=== PATIENT | female | born 1935 | race Caucasian/White ===

== ENCOUNTER 2018-01-06 13:28 | Inpatient (IN) ==
--- NOTE | 2018-01-06 13:39 | Emergency Department Note ---
Disposition Clinical Impression: Pyelonephritis Disposition: Admitted As Inpatient Condition: Fair Referrals: David Grissom Jr, MD [Primary Care Provider] - Forms: ED Satisfaction Letter, Work/School Release Time of Disposition: 15:34 Abdominal Pain HPI - General Chief Complaint: ED Abdominal Pain Stated Complaint: 'llq abdominal pain" Time Seen by Provider: 01/06/18 13:30 Source: patient, EMS Mode of arrival: EMS Limitations: no limitations Nursing Notes Reviewed: Yes Vital Signs Reviewed: Yes - History of Present Illness HPI Narrative: 82-year-old has a history of previous kidney stones says she has had some pain that may be similar to that although she recently started on a stool softener and did not know if it may be related to that. She has got diffuse abdominal discomfort. Pt Subjective Complaint: abdominal pain Onset (ago): Just [employer] Consistency: intermittent Location: diffuse Pain Severity: moderate Quality: cramping, aching Radiation: none Migration to: no migration Improves with: nothing Worsens with: nothing Context: history of similar episodes Associated symptoms: Reports: nausea. Denies: vomiting, diarrhea, fever Treatments prior to arrival: NSAIDs - Related Data Home Medications Medication Instructions Recorded Confirmed Cyclobenzaprine [Flexeril] 10 mg PO HS PRN 04/01/17 01/06/18 raNITIdine HCl [Zantac] 150 mg PO BID 04/01/17 01/06/18 Amitriptyline [Elavil] 50 mg PO BID 04/08/17 01/06/18 Previous Rx's Medication Instructions Recorded amLODIPine [Norvasc] 5 mg PO DAILY #30 tab 04/10/17 Allergies Allergy/AdvReac Type Severity Reaction Status Date / Time No Known Allergies Allergy Verified 09/08/17 20:38 Constitutional: Denies: fever, chills, weakness, weight change Eyes: Denies: eye pain, eye discharge, vision change ENT ED: Denies: ear pain, throat pain, dental pain, hearing loss, epistaxis, congestion, dysphagia Cardiovascular: Denies: chest pain, palpitations, dyspnea on exertion, edema, syncope Respiratory: Denies: cough, dyspnea, wheezes, hemoptysis, stridor Gastrointestinal: Reports: abdominal pain, nausea. Denies: vomiting, diarrhea, constipation, hematemesis, melena, hematochezia Genitourinary: Denies: dysuria, frequency, hematuria, discharge Musculoskeletal: Denies: back pain, neck pain, arthralgia, myalgia Integumentary: Denies: rash, abrasion, lesions Neurological: Denies: headache, weakness, numbness, paresthesias, confusion, abnormal gait, vertigo Psychiatric: Denies: anxiety, depression, suicidal thoughts, homicidal thoughts , auditory hallucinations, visual hallucinations Endocrine: Denies: fatigue Hematological/Lymphatic: Denies: easy bleeding, easy bruising Allergic/Immunologic: Denies: facial swelling, urticaria Abdominal Pain PMH - Past Medical History Medical history: Reports: GERD, hypertension, thyroid disease Female Surgical History: Reports: other Psychiatric history: Reports: no psych history - Social History Smoking status: Never smoker Alcohol use: Reports: none Drug use: Reports: none, other Physical Exam - General Limitations: no limitations General appearance: alert, in no apparent distress - Head Head exam: atraumatic, normocephalic, normal inspection - Eye Eye exam: Present: normal appearance, PERRL, EOMI - ENT ENT exam: normal exam, normal oropharynx, mucous membranes moist - Neck Neck exam: Present: normal inspection, full ROM, trachea midline - Chest Chest inspection: Present: normal inspection, symmetric chest wall rise - Respiratory Respiratory exam: Present: normal lung sounds bilaterally - Cardiovascular Cardiovascular exam: Present: regular rate, normal rhythm, normal heart sounds - Abdominal Exam Abdominal exam: Present: soft, tenderness. Absent: distention, guarding, rebound, rigidity Abdominal tenderness: Present: diffuse - Rectal Exam Rectal exam: Present: deferred - Extremities Exam Extremities exam: Present: normal inspection, full ROM. Absent: tenderness, pedal edema - Expanded Lower Extremity Exam Neurovascular/Tendon exam: Absent: motor deficit, sensory deficit, tendon deficit Gait: observed and normal - Back Exam Back exam: Present: normal inspection, full ROM. Absent: tenderness - Neurological Exam Neurological exam: Present: alert, oriented X3 - Psychiatric Psychiatric exam: Present: normal affect, normal mood - Skin Skin exam: Present: warm, dry, intact, normal color Course - Reevaluation(s) Reevaluation #1: 82-year-old bilateral flank pain thought maybe a kidney stone however the CT was negative for acute stone. Urine does appear to be infected with a white count of 18,000 patient will be admitted for IV antibiotics. Time: 16:06 - Consultations Consultation #1: Discussed with Time: 16:06 Vital Signs Temperature 99.7 F H 01/06/18 13:32 Pulse Rate 101 01/06/18 13:32 Respiratory Rate 18 01/06/18 13:32 Blood Pressure 130/87 01/06/18 13:32 O2 Sat by Pulse Oximetry 100 01/06/18 13:32 Temperature 99.7 F H 01/06/18 13:32 Pulse Rate 100 01/06/18 15:30 Respiratory Rate 18 01/06/18 15:30 Blood Pressure 142/77 01/06/18 15:30 O2 Sat by Pulse Oximetry 98 01/06/18 15:30 Oxygen Delivery Oxygen Delivery Room Air Abdominal Pain - Lab Data Lab results reviewed: Yes I reviewed the patient's lab results. Result diagrams: 01/06/18 13:36 01/06/18 14:45 Lab Results 01/06/18 01/06/18 01/06/18 Range/Units 13:36 13:36 13:36 WBC 18.5 H (4.3-11.1) K/mcL RBC 4.74 (3.82-4.97) M/mcL Hgb 15.0 (11.5-15.4) g/dL Hct 43.8 (35.3-44.9) % MCV 92.4 (83.0-100.0) fL MCH 31.6 (28.0-33.3) pg MCHC 34.2 (31.6-35.5) g/dL RDW 13.0 (11.5-14.5) % Plt Count 151 (140-400) K/mcL MPV 10.8 (9.4-12.4) fL Immature Gran % 0.6 (0-4) % Seg Neutrophils % 89.1 % Lymphocytes % 5.7 % Monocytes % 4.2 % Eosinophils % 0.2 % Basophils % 0.2 % Neutrophils # 16.5 H (1.6-8.9) K/mcL Lymphocytes # 1.1 (0.6-4.6) K/mcL Monocytes # 0.8 (0.0-1.3) K/mcL Eosinophils # 0.0 (0.0-0.6) K/mcL Basophils # 0.0 (0.0-0.2) K/mcL Sodium (136-145) mEq/L Potassium (3.5-5.1) mEq/L Chloride (98-107) mEq/L Carbon Dioxide (23-29) mEq/L BUN (8-23) mg/dL Creatinine (0.60-1.20) mg/dL Est GFR ( Amer) (> 60) Est GFR (Non-Af Amer) (> 60) BUN/Creatinine Ratio (6-26) Glucose (70-105) mg/dL Calculated Osmolality (280-300) Lactic Acid (0.5-2.2) mmol/L Calcium (8.6-10.3) mg/dL Total Bilirubin (0.3-1.0) mg/dL Direct Bilirubin (0.0-0.2) mg/dL Indirect Bilirubin (0.0-1.2) mg/dL AST (13-39) Units/L ALT (7-52) Units/L Alkaline Phosphatase (34-104) Units/L Troponin I 0.04 H* (< 0.04) ng/mL Serum Total Protein (6.4-8.9) g/dL Albumin (3.5-5.7) g/dL Globulin (2.4-3.5) g/dL Albumin/Globulin Ratio (1.1-2.2) Amylase (29-103) Units/L Lipase (11-82) Units/L Urine Color (Yellow) Urine Clarity (Clear) Urine pH (5.0-8.0) pH Units Ur Specific [place] (1.010-1.025) Urine Protein (Neg-Trace) mg/dL Urine Glucose (UA) (Normal) mg/dL Urine Ketones (Negative) mg/dL Urine Blood (Negative) Urine Nitrite (Negative) Urine Bilirubin (Negative) Urine Urobilinogen (Normal) mg/dL Ur Leukocyte Esterase (Negative) Urine Microscopic RBC (0-3) per hpf Urine Microscopic WBC (0-3) per hpf Ur Squamous Epith Cells (None-Few) per lpf Urine Bacteria (None-Few) per hpf Hyaline Casts (None-Few) per lpf Ur Culture Indicated? (NO) Specimen Rejected Hemolyzed 01/06/18 01/06/18 01/06/18 Range/Units 13:47 14:45 14:59 WBC (4.3-11.1) K/mcL RBC (3.82-4.97) M/mcL Hgb (11.5-15.4) g/dL Hct (35.3-44.9) % MCV (83.0-100.0) fL MCH (28.0-33.3) pg MCHC (31.6-35.5) g/dL RDW (11.5-14.5) % Plt Count (140-400) K/mcL MPV (9.4-12.4) fL Immature Gran % (0-4) % Seg Neutrophils % % Lymphocytes % % Monocytes % % Eosinophils % % Basophils % % Neutrophils # (1.6-8.9) K/mcL Lymphocytes # (0.6-4.6) K/mcL Monocytes # (0.0-1.3) K/mcL Eosinophils # (0.0-0.6) K/mcL Basophils # (0.0-0.2) K/mcL Sodium 139 (136-145) mEq/L Potassium 3.9 (3.5-5.1) mEq/L Chloride 105 (98-107) mEq/L Carbon Dioxide 26 (23-29) mEq/L BUN 20 (8-23) mg/dL Creatinine 1.33 H (0.60-1.20) mg/dL Est GFR ( Amer) 46 L (> 60) Est GFR (Non-Af Amer) 38 L (> 60) BUN/Creatinine Ratio 15 (6-26) Glucose 102 (70-105) mg/dL Calculated Osmolality 291 (280-300) Lactic Acid 1.5 (0.5-2.2) mmol/L Calcium 9.4 (8.6-10.3) mg/dL Total Bilirubin 0.9 (0.3-1.0) mg/dL Direct Bilirubin 0.2 (0.0-0.2) mg/dL Indirect Bilirubin 0.7 (0.0-1.2) mg/dL AST 17 (13-39) Units/L ALT 10 (7-52) Units/L Alkaline Phosphatase 75 (34-104) Units/L Troponin I (< 0.04) ng/mL Serum Total Protein 6.5 (6.4-8.9) g/dL Albumin 3.9 (3.5-5.7) g/dL Globulin 2.6 (2.4-3.5) g/dL Albumin/Globulin Ratio 1.5 (1.1-2.2) Amylase 19 L (29-103) Units/L Lipase 11 (11-82) Units/L Urine Color Yellow (Yellow) Urine Clarity Turbid A (Clear) Urine pH 7.0 (5.0-8.0) pH Units Ur Specific [place] 1.014 (1.010-1.025) Urine Protein 100 H (Neg-Trace) mg/dL Urine Glucose (UA) Normal (Normal) mg/dL Urine Ketones Negative (Negative) mg/dL Urine Blood Small H (Negative) Urine Nitrite Positive A (Negative) Urine Bilirubin Negative (Negative) Urine Urobilinogen Normal (Normal) mg/dL Ur Leukocyte Esterase Large H (Negative) Urine Microscopic RBC 5-15 H (0-3) per hpf Urine Microscopic WBC TNTC H (0-3) per hpf Ur Squamous Epith Cells Moderate H (None-Few) per lpf Urine Bacteria Many H (None-Few) per hpf Hyaline Casts None Seen (None-Few) per lpf Ur Culture Indicated? YES A (NO) Specimen Rejected - Radiology Data Radiology results reviewed: Yes I reviewed the patient's radiology results. Abdomen/Pelvis CT 01/06/18 13:37 IMPRESSION: There is [id number] left-sided hydronephrosis and proximal hydroureter with uroepithelial thickening. Findings are decreased compared to prior study. The previously seen left-sided nephrolithiasis is no longer present. Constellation of findings may be due to a recently passed stone, scarring from the previously-seen obstruction and perforation, or be infectious in etiology. Clinical correlation recommended. D/ / Juliette Issa MD / Juliette Issa MD Interpreting Provider: Juliette Issa MD - EKG Data EKG attestation: Yes I reviewed and interpreted this EKG. EKG shows normal: sinus rhythm Rate: normal Rhythm: NSR [place]/QRS: normal, RBBB Interpretation: no acute changes
[2018-01-06 14:09] LABS: Basophils % 0.2 %; Eosinophils % 0.2 %; Hematocrit 43.8 % (35.3-44.9); Immature Granulocytes % 0.6 % (0-4); Lymphocytes # 1.1 K/mcL (0.6-4.6); Lymphocytes % 5.7 %; Mean Corpuscular HGB Conc 34.2 g/dL (31.6-35.5); Mean Corpuscular Hemoglobin 31.6 pg (28.0-33.3); Mean Corpuscular Volume 92.4 fL (83.0-100.0); Mean Platelet Volume 10.8 fL (9.4-12.4); Monocytes # 0.8 K/mcL (0.0-1.3); Monocytes % 4.2 %; Neutrophils # 16.5 K/mcL (1.6-8.9); Platelet Count 151 K/mcL (140-400); Red Blood Count 4.74 M/mcL (3.82-4.97); Segmented Neutrophils % 89.1 %
[2018-01-06 15:14] LABS: Bilirubin,Urine Negative (Negative); Blood,Urine Small (Negative); Clarity,Urine Turbid (Clear); Color,Urine Yellow (Yellow); Glucose,Urine (UA) Normal (Normal); Ketones,Urine Negative (Negative); Leukocyte Esterase,Urine Large (Negative); Nitrite,Urine Positive (Negative); Protein,Urine 100 mg/dL (Neg-Trace); Specific Gravity,Urine 1.014 (1.010-1.025); Urobilinogen,Urine Normal (Normal)
[2018-01-06 15:16] LABS: Bacteria,Urine Many per hpf (None-Few); Hyaline Casts,Urine None Seen per lpf (None-Few); Squamous Epithelial Cell,Urine Moderate per lpf (None-Few); WBC,Urine TNTC per hpf (0-3)
[2018-01-06 15:29] LABS: Albumin 3.9 g/dL (3.5-5.7); Albumin/Globulin Ratio 1.5 (1.1-2.2); Bilirubin,Direct 0.2 mg/dL (0.0-0.2); Bilirubin,Indirect 0.7 mg/dL (0.0-1.2); Bilirubin,Total 0.9 mg/dL (0.3-1.0); Calcium 9.4 mg/dL (8.6-10.3); Globulin 2.6 g/dL (2.4-3.5); Potassium 3.9 mEq/L (3.5-5.1); Total Protein 6.5 g/dL (6.4-8.9)
[2018-01-06] MEDS ORDERED: cefTRIAXone 1,000 MG in Water for inj. (sterile) 20 ML 10 ML IVP ONE (15:32)
[2018-01-06] MEDS ORDERED: Naloxone 0.4 MG/ML INJ IVP PRN (16:48)
[2018-01-06] MEDS ORDERED: Ondansetron 4 MG/2 ML VIAL IVP PRN (16:48)
[2018-01-06] MEDS ORDERED: OXYCODONE Oral CONC 10 MG/0.5 ML ORAL.SYG SL PRN ×2 (16:48)
--- NOTE | 2018-01-06 16:53 | Internal Med History&Physical ---
Date of Encounter: 01/06/18 Time of Encounter: 16:51 Internal Medicine - H&P: HPI Chief complaint: Back pain and fever Admitted From: Emergency Dept History of present illness: Ms. Varela is a 82 year old female with a past medical history of CK D3, recurrent urinary tract infections, hypothyroidism, was brought to the emergency room as she has been feeling weaker and has been confused, complaining of back pain. White blood cell count is 18.5 creatinine 1.33 at baseline, heart rate was 101 temperature 99.7 UA shows possible infection with too numerous to count white blood cells and many bacteria. CT scan of the abdomen shows a left moderate hydronephrosis with reactive signs compatible with recently passing a stone possibly or an infection. The patient is a very poor historian, has grown enterococcus and Escherichia coli pansensitive in the past. Received Rocephin at the emergency room. Complains of dysuria and some abdominal pain. Denies any chest pain, EKG is unremarkable but troponin 0.04 Past Med Surg Social Fam HX - Past Medical History Medical history: GERD, hypertension, thyroid disease (Hypothyroidism), other ( Chronic kidney disease of stage III, nephrolithiasis, GERD, UTI with Aerococcus and Escherichia coli) Additional medical history: patient states she was taken off of her blood pressure meds due to her blood pressure dropping when she stood causing her to fall. Psychiatric history: no psych history - Past Surgical History Surgical History: herniorrhaphy, knee replacement, other (Partial gastrectomy, pylorectomy, multiple orthopedic surgeries and large hiatal hernia repair) Additional surgical history: broken knee cap left-2006, broken wrist right-2009 , kidney stone right-2009, wrist wrist ORIF, gastrectomy, pylorectomy, edg, left open hip reductio/IM nailing - Social History Smoking Status: Never smoker Smokeless Tobacco Status: No Alcohol use: none Drug use: none, other - Family History Mother Living Status: Father Living Status: Sister Living Status: Hx Family Cancer: Yes - Additional Family History Additional family history: Brother with SC, sister with lung cancer, son with antiphospholipid syndrome and maternal grandmother with diabetes Internal Medicine - H&P: Meds Cyclobenzaprine [Flexeril] 10 mg PO HS PRN 04/01/17 [History] raNITIdine HCl [Zantac] 150 mg PO BID 04/01/17 [History] Amitriptyline [Elavil] 50 mg PO BID 04/08/17 [History] amLODIPine [Norvasc] 5 mg PO DAILY #30 tab 04/10/17 [Rx] 3 Allergy/AdvReac Type Severity Reaction Status Date / Time No Known Allergies Allergy Verified 09/08/17 20:38 All Systems PM: A 10-system review of systems was performed and is negative for pertinent findings except as documented above in the HPI. Review of systems: No chest pressures or breath, other systems out of the 10 reviewed were negative - Constitutional Vitals: Temp Pulse Resp BP Pulse Ox 99.7 F H 100 18 142/77 98 01/06/18 13:32 01/06/18 15:30 01/06/18 15:30 01/06/18 15:30 01/06/18 15:30 General appearance: Present: A&O X 2 (Disoriented in time at times) Exam: Dehydrated Flank tenderness bilaterally Severe kyphosis - Head Head exam: Present: atraumatic, normocephalic - Eye Eye exam: Present: PERRL, conjuntiva pink, sclera anicteric Pupils: Present: PERRL - Neck Neck exam general surgery: Present: supple, trachea midline. Absent: lymphadenopathy - Respiratory Respiratory exam: Present: decreased breath sounds, CTAB. Absent: accessory muscle use, rales, rhonchi, wheezes - Cardiovascular Cardiovascular exam: Present: RRR, +S1, +S2, tachycardia. Absent: diastolic murmur, gallop, rubs, systolic murmur - GI/Abdominal GI/Abdominal exam: Present: normal bowel sounds, soft, no peritoneal signs. Absent: distended, tenderness - Extremities Exam Extremities exam: Present: warm, radial pulses palpable and symmetrical. Absent : calf tenderness, cyanotic, pedal edema - Neurological Exam Neurological exam: Present: CN II-XII intact, no focal deficits. Absent: oriented X3 (Appears dehydrated), pronater drift, facial droop, speech deficit - Skin Skin exam: Present: dry, intact Internal Med - H&P Results - Labs CBC & Chem 7: 01/06/18 13:36 01/06/18 14:45 - Assessment and plan (1) Sepsis Current Visit: Yes Status: Acute Assessment and plan: Acute metabolic encephalopathy secondary to sepsis due to UTI, possible ureteral infection on the left/pyelonephritis Possible inflammation from passing a stone Continue Rocephin IV, IV fluids, urine culture Repeat lactic acid Omeprazole for GI prophylaxes and subcutaneous tenderness heparin for DVT prophylaxis. The patient will be admitted as inpatient, expected stay more than 2 midnights. DNR CC arrest DNI. Time spent on this admission 40 minutes Qualifiers: Sepsis type: sepsis due to unspecified organism Qualified Code(s): A41.9 - Sepsis, unspecified organism (2) Elevated troponin Current Visit: Yes Status: Acute Assessment and plan: Likely secondary to demand ischemia Reorder troponin (3) UTI (urinary tract infection) Current Visit: Yes Status: Acute Qualifiers: Urinary tract infection type: acute cystitis Hematuria presence: without hematuria Qualified Code(s): N30.00 - Acute cystitis without hematuria (4) HTN (hypertension) Current Visit: No Status: Acute Qualifiers: Hypertension type: essential hypertension Qualified Code(s): I10 - Essential (primary) hypertension (5) Weakness Current Visit: No Status: Acute (6) GERD (gastroesophageal reflux disease) Current Visit: No Status: Chronic Qualifiers: Esophagitis presence: without esophagitis Qualified Code(s): K21.9 - Gastro -esophageal reflux disease without esophagitis - Time Spent With Patient Total time spent is greater than 50% in coordination of care (as documented) at patient's floor/unit and/or counseling patient:
[2018-01-06] MEDS: 0.9 % Sodium Chloride 1,000 ML IVC SCH (17:42)
--- NOTE | 2018-01-06 18:23 | Electrocardiograph Report ---
[facility] Test Date: 2018-01-06 Pat Name: Suyapa Varela Department: 104 Room: 3A13 Gender: F Computer Consultant: KANA : 1935 Requested By: Jesse Hawk Order Number: [id number] Reading MD: David Grissom Measurements Intervals [place] Rate: 98 P: 54 IN: 188 QRS: 17 QRSD: 125 T: 60 QT: 357 QTc: 413 Interpretive Statements SINUS RHYTHM RIGHT BUNDLE BRANCH BLOCK [120+ ms QRS DURATION, UPRIGHT V1, 40+ ms S IN I/aVL/V4/V5/V6] Electronically Signed On 01-06-2018 18:21:49 EDT by David Grissom
[2018-01-06] MEDS: Famotidine 20 MG TABLET PO SCH (20:31)
[2018-01-07] MEDS: *HR* Heparin 5,000 UNIT/ML VIAL SQ SCH ×3 (00:01→15:45)
[2018-01-07 05:35] LABS: Hematocrit 40.1 % (35.3-44.9); Mean Corpuscular HGB Conc 33.4 g/dL (31.6-35.5); Mean Corpuscular Hemoglobin 30.7 pg (28.0-33.3); Mean Corpuscular Volume 91.8 fL (83.0-100.0); Mean Platelet Volume 10.3 fL (9.4-12.4); Platelet Count 172 K/mcL (140-400); Red Blood Count 4.37 M/mcL (3.82-4.97); Red Cell Distribution Width 12.9 % (11.5-14.5)
[2018-01-07 05:44] LABS: Hemoglobin 13.4 g/dL (11.5-15.4)
[2018-01-07 05:56] LABS: Calcium 9.3 mg/dL (8.6-10.3); Potassium 3.3 mEq/L (3.5-5.1)
[2018-01-07] MEDS: Famotidine 20 MG TABLET PO SCH ×2 (07:44→20:18)
[2018-01-07] MEDS: 0.9 % Sodium Chloride 1,000 ML IVC SCH (09:35)
--- NOTE | 2018-01-07 09:37 | Internal Med Progress Note ---
Date of Encounter: 01/07/18 Time of Encounter: 09:35 - Assessment and plan (1) UTI (urinary tract infection) Current Visit: Yes Status: Acute Assessment and plan: Patient is day #2 IV Rocephin. Await culture data. Medically patient has pyelonephritis as well. CT scan showed mild obstruction but improved from that of 2017 CAT scan. He also had a stone at that time which now looks like it is past. There may be scar tissue present as well. Continue to closely monitor. iF patient does not continue to improve, will consult urology. Qualifiers: Urinary tract infection type: acute cystitis Hematuria presence: without hematuria Qualified Code(s): N30.00 - Acute cystitis without hematuria (2) Sepsis Current Visit: Yes Status: Acute Assessment and plan: Acute metabolic encephalopathy secondary to sepsis due to UTI, possible ureteral infection on the left/pyelonephritis Possible inflammation from passing a stone Continue Rocephin IV, IV fluids, urine culture Repeat lactic acid Omeprazole for GI prophylaxes and subcutaneous tenderness heparin for DVT prophylaxis. The patient will be admitted as inpatient, expected stay more than 2 midnights. DNR CC arrest DNI. Time spent on this admission 40 minutes 6/: Improving. Resolving. Qualifiers: Sepsis type: sepsis due to unspecified organism Qualified Code(s): A41.9 - Sepsis, unspecified organism (3) HTN (hypertension) Current Visit: No Status: Acute Assessment and plan: Blood pressure stable. Monitor. Qualifiers: Hypertension type: essential hypertension Qualified Code(s): I10 - Essential (primary) hypertension (4) GERD (gastroesophageal reflux disease) Current Visit: No Status: Chronic Qualifiers: Esophagitis presence: without esophagitis Qualified Code(s): K21.9 - Gastro -esophageal reflux disease without esophagitis (5) Weakness Current Visit: No Status: Acute (6) Elevated troponin Current Visit: Yes Status: Acute Assessment and plan: Likely secondary to demand ischemia Reorder troponin - Time Spent With Patient Total time spent is greater than 50% in coordination of care (as documented) at patient's floor/unit and/or counseling patient: 25 - 35 minutes - Subjective Interval history: Ms. Varela is a 82 year old female with a past medical history of CK D3, recurrent urinary tract infections, hypothyroidism, was brought to the emergency room as she has been feeling weaker and has been confused, complaining of back pain. White blood cell count is 18.5 creatinine 1.33 at baseline, heart rate was 101 temperature 99.7 UA shows possible infection with too numerous to count white blood cells and many bacteria. CT scan of the abdomen shows a left moderate hydronephrosis with reactive signs compatible with recently passing a stone possibly or an infection. The patient is a very poor historian, has grown enterococcus and Escherichia coli pansensitive in the past. Received Rocephin at the emergency room. Complains of dysuria and some abdominal pain. Denies any chest pain, EKG is unremarkable but troponin 0.04 01/07: She states she is feeling much better today. She still has some left lower quadrant pain. No nausea, vomiting, diarrhea. No fevers or chills. No urinary complaints presently. She relates that she has had 2 prior kidney stones in the past, and they have had to be removed. - Constitutional Vitals: Temp Pulse Resp BP Pulse Ox 98.5 F 95 18 149/83 99 01/07/18 08:46 01/07/18 08:46 01/07/18 08:46 01/07/18 08:46 01/07/18 08:46 General appearance: Present: A&O X 3, no acute distress Exam: Mildly ill appearing - Head Head exam: Present: atraumatic, normocephalic - Eye Eye exam: Present: PERRL, conjuntiva pink, sclera anicteric Pupils: Present: PERRL - Neck Neck exam general surgery: Present: supple, trachea midline. Absent: lymphadenopathy - Respiratory Respiratory exam: Present: CTAB. Absent: accessory muscle use, rales, rhonchi, wheezes - Cardiovascular Cardiovascular exam: Present: RRR, +S1, +S2. Absent: diastolic murmur, gallop, rubs, systolic murmur - GI/Abdominal GI/Abdominal exam: Present: normal bowel sounds, soft, tenderness (Left mid abdomen tenderness to palpation), no peritoneal signs. Absent: distended - Extremities Exam Extremities exam: Present: warm, radial pulses palpable and symmetrical. Absent : calf tenderness, cyanotic, pedal edema - Neurological Exam Neurological exam: Present: CN II-XII intact, oriented X3, no focal deficits. Absent: pronater drift, facial droop, speech deficit - Skin Skin exam: Present: dry, intact Internal Medicine: Result - Labs CBC & Chem 7: 01/07/18 03:38 01/07/18 03:38 Labs: Short CBC 01/07/18 Range/Units 03:38 WBC 17.5 H (4.3-11.1) K/mcL Hgb 13.4 D (11.5-15.4) g/dL Hct 40.1 (35.3-44.9) % Plt Count 172 (140-400) K/mcL BMP 01/07/18 03:38 Sodium 138 Potassium 3.3 L Chloride 103 Carbon Dioxide 25 BUN 19 Creatinine 1.24 H Glucose 155 H Calcium 9.3 Cardiac Enzymes 01/06/18 Range/Units 21:29 Troponin I < 0.03 (< 0.04) ng/mL Consult Discharge Plan - Plan Referrals: David Grissom Jr, MD [Primary Care Provider] -
[2018-01-07] MEDS: cefTRIAXone 1,000 MG in Water for inj. (sterile) 20 ML 10 ML IVP SCH (13:45)
[2018-01-08] MEDS: *HR* Heparin 5,000 UNIT/ML VIAL SQ SCH ×3 (00:27→16:00)
[2018-01-08 05:26] LABS: Basophils % 0.4 %; Eosinophils # 0.1 K/mcL (0.0-0.6); Eosinophils % 1.7 %; Hematocrit 33.1 % (35.3-44.9); Immature Granulocytes % 0.4 % (0-4); Lymphocytes # 0.8 K/mcL (0.6-4.6); Lymphocytes % 9.6 %; Mean Corpuscular HGB Conc 34.4 g/dL (31.6-35.5); Mean Corpuscular Hemoglobin 32.1 pg (28.0-33.3); Mean Corpuscular Volume 93.2 fL (83.0-100.0); Mean Platelet Volume 10.3 fL (9.4-12.4); Monocytes # 0.5 K/mcL (0.0-1.3); Monocytes % 6.2 %; Neutrophils # 6.8 K/mcL (1.6-8.9); Platelet Count 145 K/mcL (140-400); Red Blood Count 3.55 M/mcL (3.82-4.97); Red Cell Distribution Width 12.9 % (11.5-14.5); Segmented Neutrophils % 81.7 %
[2018-01-08 05:27] LABS: Hemoglobin 11.4 g/dL (11.5-15.4)
[2018-01-08 05:44] LABS: Calcium 8.7 mg/dL (8.6-10.3); Potassium 3.5 mEq/L (3.5-5.1)
[2018-01-08] MEDS: Famotidine 20 MG TABLET PO SCH ×2 (08:00→21:28)
--- NOTE | 2018-01-08 10:00 | Internal Med Progress Note ---
Date of Encounter: 01/08/18 Time of Encounter: 09:00 - Assessment and plan (1) UTI (urinary tract infection) Current Visit: Yes Status: Acute Assessment and plan: Patient is day #2 IV Rocephin. Await culture data. Medically patient has pyelonephritis as well. CT scan showed mild obstruction but improved from that of 2017 CAT scan. She also had a stone at that time which now looks like it is past. There may be scar tissue present as well. Continue to closely monitor. If patient does not continue to improve, will consult urology. 01/08: Patient is improving. Day #3 IV Rocephin. Comparing her CAT scan done on admission which showed left-sided hydronephrosis and proximal hydroureter, findings are actually decreased from a previous CT scan on 07/03/2017. Also on her scan in June 2017 she had left-sided nephrolithiasis, which there are no stones noted on present CAT scan. If patient does not continue to improve would consult urology. For now will continue IV Rocephin until ensured clinical response and also sensitivities back. If we do not get urine sensitivities back I would recommend treating with po Keflex to complete a 10-14 day course as she is responding well to Rocephin. She will certainly at least need outpatient urology follow-up. I discussed the case with Dr. Lutz, in urology who is in agreement with my management. Recommend outpatient urology follow-up with him. We will call urology should she have any acute issues while in hospital. Qualifiers: Urinary tract infection type: acute cystitis Hematuria presence: without hematuria Qualified Code(s): N30.00 - Acute cystitis without hematuria (2) Sepsis Current Visit: Yes Status: Acute Assessment and plan: Acute metabolic encephalopathy secondary to sepsis due to UTI, possible ureteral infection on the left/pyelonephritis Possible inflammation from passing a stone Continue Rocephin IV, IV fluids, urine culture Repeat lactic acid Omeprazole for GI prophylaxes and subcutaneous tenderness heparin for DVT prophylaxis. The patient will be admitted as inpatient, expected stay more than 2 midnights. DNR CC arrest DNI. Time spent on this admission 40 minutes 01/08: Improving. Resolving. See above. Qualifiers: Sepsis type: sepsis due to unspecified organism Qualified Code(s): A41.9 - Sepsis, unspecified organism (3) HTN (hypertension) Current Visit: No Status: Acute Assessment and plan: Blood pressure stable. Monitor. Qualifiers: Hypertension type: essential hypertension Qualified Code(s): I10 - Essential (primary) hypertension (4) GERD (gastroesophageal reflux disease) Current Visit: No Status: Chronic Assessment and plan: Patient is on Pepcid Qualifiers: Esophagitis presence: without esophagitis Qualified Code(s): K21.9 - Gastro -esophageal reflux disease without esophagitis (5) Weakness Current Visit: No Status: Acute Assessment and plan: Physical therapy. May need placement (6) Elevated troponin Current Visit: Yes Status: Acute Assessment and plan: Likely secondary to demand ischemia Reorder troponin 01/08: I do not suspect NSTEMI - Time Spent With Patient Total time spent is greater than 50% in coordination of care (as documented) at patient's floor/unit and/or counseling patient: 25 - 35 minutes - Subjective Interval history: Ms. Varela is a 82 year old female with a past medical history of CK D3, recurrent urinary tract infections, hypothyroidism, was brought to the emergency room as she has been feeling weaker and has been confused, complaining of back pain. White blood cell count is 18.5 creatinine 1.33 at baseline, heart rate was 101 temperature 99.7 UA shows possible infection with too numerous to count white blood cells and many bacteria. CT scan of the abdomen shows a left moderate hydronephrosis with reactive signs compatible with recently passing a stone possibly or an infection. The patient is a very poor historian, has grown enterococcus and Escherichia coli pansensitive in the past. Received Rocephin at the emergency room. Complains of dysuria and some abdominal pain. Denies any chest pain, EKG is unremarkable but troponin 0.04 01/07: She states she is feeling much better today. She still has some left lower quadrant pain. No nausea, vomiting, diarrhea. No fevers or chills. No urinary complaints presently. She relates that she has had 2 prior kidney stones in the past, and they have had to be removed. 01/08: Patient continues to improve. She is confused and is a very difficult historian. He is denying any complaints. She did have a low-grade fever of 99.2 last night. Otherwise she remains hemodynamically stable satting 93% on room air. White blood cell count has normalized to 8.3 today, down from 18.5 on admission. BUN and creatinine 19 over 1.13. Urine culture grew out Aerococcus which I suspect to be a contaminant. Patient is day 3 IV Rocephin. Patient denies any pain. - Constitutional Vitals: Temp Pulse Resp BP Pulse Ox 98 F 80 16 131/81 93 01/08/18 08:02 01/08/18 08:02 01/08/18 08:02 01/08/18 08:02 01/08/18 08:02 General appearance: Present: A&O X 2, no acute distress Exam: Confused, thinks she is at home, thin, temporal wasting - Head Head exam: Present: atraumatic, normocephalic - Eye Eye exam: Present: PERRL, conjuntiva pink, sclera anicteric Pupils: Present: PERRL - Neck Neck exam general surgery: Present: supple, trachea midline. Absent: lymphadenopathy - Respiratory Respiratory exam: Present: CTAB. Absent: accessory muscle use, rales, rhonchi, wheezes - Cardiovascular Cardiovascular exam: Present: RRR, +S1, +S2. Absent: diastolic murmur, gallop, rubs, systolic murmur - GI/Abdominal GI/Abdominal exam: Present: normal bowel sounds, soft, no peritoneal signs. Absent: distended, tenderness - Extremities Exam Extremities exam: Present: warm, radial pulses palpable and symmetrical. Absent : calf tenderness, cyanotic, pedal edema - Neurological Exam Neurological exam: Present: CN II-XII intact, oriented X3, no focal deficits. Absent: pronater drift, facial droop, speech deficit - Skin Skin exam: Present: dry, intact Internal Medicine: Result - Labs CBC & Chem 7: 01/08/18 04:46 01/08/18 04:46 Labs: Short CBC 01/08/18 Range/Units 04:46 WBC 8.3 D (4.3-11.1) K/mcL Hgb 11.4 L D (11.5-15.4) g/dL Hct 33.1 L (35.3-44.9) % Plt Count 145 (140-400) K/mcL Neutrophils # 6.8 (1.6-8.9) K/mcL BMP 01/08/18 04:46 Sodium 139 Potassium 3.5 Chloride 110 H Carbon Dioxide 21 L BUN 19 Creatinine 1.13 Glucose 109 H Calcium 8.7 Consult Discharge Plan - Plan Referrals: David Grissom Jr, MD [Primary Care Provider] -
[2018-01-08] MEDS: cefTRIAXone 1,000 MG in Water for inj. (sterile) 20 ML 10 ML IVP SCH (14:17)
[2018-01-09] MEDS: *HR* Heparin 5,000 UNIT/ML VIAL SQ SCH ×3 (00:25→15:11)
[2018-01-09 07:36] LABS: BUN/Creatinine Ratio 18 (6-26); Blood Urea Nitrogen 19 mg/dL (8-23); Calcium 8.8 mg/dL (8.6-10.3); Carbon Dioxide 23 mEq/L (23-29); Chloride 108 mEq/L (98-107); Glucose 102 mg/dL (70-105); Osmolality,Calculated 290 (280-300); Potassium 3.7 mEq/L (3.5-5.1); Sodium 139 mEq/L (136-145); eGFR For African Americans > 60 (> 60); eGFR For Non-African Americans 51 (> 60)
[2018-01-09] MEDS: Famotidine 20 MG TABLET PO SCH (09:58)
[2018-01-09 12:38] VITALS: BP 137/86
--- NOTE | 2018-01-09 13:00 | Discharge Summary ---
- NOTES TO OUTPATIENT PROVIDER Notes to Outpatient Provider: Patient has a history of dementia and is presenting with a urinary tract infection. She has polynephritis and mild obstructive uropathy. Urine cultures are positive for Enterobacter Cloacae for which she will be discharged on Omnicef for a total of 14 days duration which means 10 more days of antibiotics. She will need outpatient urology follow-up. Orders not resulted at time of discharge: Pending orders 01/09/18 07:37 Complete Blood Count [HEME] Routine 01/10/18 04:00 BMP [Basic Metabolic Panel] AM 0400 CBC [Complete Blood Count] [HEME] AM 0400 Date of Encounter: 01/09/18 Time of Encounter: 12:57 - Discharge Diagnosis (1) HTN (hypertension) Priority: Secondary Status: Acute Qualifiers: Hypertension type: essential hypertension Qualified Code(s): I10 - Essential (primary) hypertension (2) GERD (gastroesophageal reflux disease) Priority: Secondary Status: Chronic Qualifiers: Esophagitis presence: without esophagitis Qualified Code(s): K21.9 - Gastro -esophageal reflux disease without esophagitis (3) Weakness Priority: Secondary Status: Acute (4) Sepsis Priority: Secondary Status: Resolved Qualifiers: Sepsis type: sepsis due to unspecified organism Qualified Code(s): A41.9 - Sepsis, unspecified organism (5) Elevated troponin Priority: Secondary Status: Acute (6) UTI (urinary tract infection) Priority: Primary Status: Acute Qualifiers: Urinary tract infection type: acute cystitis Hematuria presence: without hematuria Qualified Code(s): N30.00 - Acute cystitis without hematuria Hospital course: Ms. Varela is a 82 year old female Patient is an 82-year-old female with a history of dementia who was admitted for urinary tract infection. Imaging initially showed evidence of polynephritis with mild obstructive uropathy. She had a CT back in June 2017 which showed a worse obstruction than this time. Back in 2016 she did have a stone but it appeared to have passed in the interim. She significantly improved after IV Rocephin for 3 days duration. Urine culture came back positive for Enterobacter cloacae and she has been transitioned to oral Omnicef 300 mg twice a day for 10 more days. An outpatient appointment with urology has been requested with the front end driver staff. There was a discussion by the prior hospitalist with Dr. Lutz from urology prior to discharge. I will also forwarded the information to the patient's primary care physician. Discharge discussed with: patient, nurse (Patient has 24-hour care at home and does not need a home health referral at this point. Confirmed with family), case management - Time Spent with Patient Total time spent providing and/or coordinating discharge services: Greater than 30 minutes - Discharge Medications Prescriptions: Cefdinir [Omnicef] 300 mg PO BID 10 Days #20 capsule Home Medications: Cyclobenzaprine [Flexeril] 10 mg PO HS PRN 04/01/17 [History] raNITIdine HCl [Zantac] 150 mg PO BID 04/01/17 [History] Amitriptyline [Elavil] 50 mg PO BID 04/08/17 [History] amLODIPine [Norvasc] 5 mg PO DAILY #30 tab 04/10/17 [Rx] Cefdinir [Omnicef] 300 mg PO BID 10 Days #20 capsule 01/09/18 [Rx] Allergies/Adverse Reactions: 3 Allergy/AdvReac Type Severity Reaction Status Date / Time No Known Allergies Allergy Verified 09/08/17 20:38 Date of admission: 01/06/18 16:48 Primary care physician: David Grissom Jr, MD Consults: 01/06/18 19:50 Consult to Pantograph Machine Set Up Operator [CONS] Routine Reason for SW Consult: Patient from home with private care 28/02. 01/08/18 10:32 Consult to Physical Therapy [CONS] Routine Comment: Evaluate, develop and implement POC Reason for Consult: weakness Does patient have active BEDREST order?: No Is patient medically & hemodynamically stable?: Yes Patient assessed for mobility or mobilized this visit?: No - Constitutional Vitals: Temp Pulse Resp BP Pulse Ox 97.9 F 82 16 137/86 98 01/09/18 12:37 01/09/18 12:37 01/09/18 12:37 01/09/18 12:37 01/09/18 12:37 General appearance: Present: A&O X 2, no acute distress Exam: GENERAL: Alert, moderate distress, a and O 2 EYES: PERRLA, EOMI EARS: External ears normal, canals clear OROPHARYNX: Lips, mucosa, and tongue normal. Teeth and gums normal. Oropharynx normal. NECK: No jugulovenous distention, No carotid bruits, Carotid pulse normal contour, Supple LUNGS: Lungs clear to auscultation, Good diaphragmatic excursion CARDIAC: Normal S1 and S2; no rubs, murmurs, or gallops ABDOMEN: Abdomen soft, non-tender, BS normal, No masses or organomegaly Rest of the exam is non contributory - Patient Status Disposition: Home, Self-Care Condition: Fair Functional capacity at discharge: uses cane/walker Overall status at discharge: patient is progressing back to baseline - Discharge Instructions Follow Up With: David Grissom Jr, MD [Primary Care Provider] - Blane Lutz MD [Partnered Physician] - 01/17/18 7:45 am - Diet and Activity Activity: resume usual activities as tolerated Diet: advance to your usual diet
[2018-01-09] MEDS: cefTRIAXone 1,000 MG in Water for inj. (sterile) 20 ML 10 ML IVP SCH (15:11)
== END 2018-01-09 16:44 | disposition home or self-care (01) | DRG 871 ==
LOC: 3ANU 13:28 → EMEROO 13:28 → SUATTDRO 16:48 → 3ANU 18:34
PROVIDERS: ADMIT Internal Medicine; ATTEND Internal Medicine

== ENCOUNTER 2018-05-31 15:42 | Inpatient (IN) ==
[2018-05-31] MEDS ORDERED: *HR* OxyCODONE/APAP 5/325 TABLET PO STA (16:07)
--- NOTE | 2018-05-31 17:53 | Emergency Department Note ---
Disposition Clinical Impression: Hip fracture Qualifiers: Encounter type: initial encounter Fracture type: closed Laterality: right Qualified Code(s): S72.001A - Fracture of unspecified part of neck of right femur, initial encounter for closed fracture Disposition: Admitted As Inpatient Condition: Good Time of Disposition: 18:45 General Adult HPI - General Chief complaint: ED Extremity Injury, Lower Stated complaint: Fall Time Seen by Provider: 05/31/18 15:48 Source: patient, EMS Limitations: no limitations Nursing Notes Reviewed: Yes Vital Signs Reviewed: Yes - History of Present Illness HPI Narrative: Female patient presenting to the emergency department complaining of a ground- level fall. She lost her balance while she was using her walker and like over walker. She fell to the right on her right hip. She denies any loss of consciousness. She denies shaking her head. She is on any blood thinners. She denies any other pain other than in her right thigh area. She has not been ambulatory since. She has no other complaints at this time. Denies any chest pain or shortness of breath. Pain Scale: 10 - Related Data Home Medications Medication Instructions Recorded Confirmed Cyclobenzaprine [Flexeril] 10 mg PO HS PRN 04/01/17 05/31/18 raNITIdine HCl [Zantac] 150 mg PO BID 04/01/17 05/31/18 Vit C/Vit E/[place]in/Min/[place]-3 1 cap PO DAILY 05/31/18 05/31/18 [Ocuvite Softgel] Previous Rx's Medication Instructions Recorded amLODIPine [Norvasc] 5 mg PO DAILY #30 tab 04/10/17 Allergies Allergy/AdvReac Type Severity Reaction Status Date / Time No Known Allergies Allergy Verified 09/08/17 20:38 All systems ED: reviewed and negative except as stated. Review of Systems: As Per HPI Constitutional: Denies: fever, chills ENT ED: Denies: congestion Cardiovascular: Denies: chest pain, palpitations, syncope Respiratory: Denies: cough, dyspnea Gastrointestinal: Denies: abdominal pain, nausea, vomiting, diarrhea Genitourinary: Denies: urgency, dysuria, frequency Musculoskeletal: Reports: other (Right upper leg pain.). Denies: back pain, neck pain Integumentary: Denies: rash Neurological: Denies: headache, weakness Past Medical History - Past Medical History Attestation: Yes The following information was validated with the patient. Source: patient Medical history: Reports: GERD, hypertension, thyroid disease, other Surgical history: Reports: herniorrhaphy, knee replacement, other Psychiatric history: Reports: no psych history - Social History Smoking Status: Never smoker Smokeless Tobacco Status: No Alcohol use: Reports: none Drug use: Reports: none, other Physical Exam - General Limitations: no limitations General appearance: alert, in distress (Does appear to be in pain.) - Head Head exam: atraumatic, normocephalic, normal inspection - Eye Eye exam: Present: normal appearance, PERRL, EOMI - ENT ENT exam: normal exam, normal oropharynx, mucous membranes moist - Neck Neck exam: Present: normal inspection, full ROM, trachea midline - Chest Chest inspection: Present: normal inspection, symmetric chest wall rise - Respiratory Respiratory exam: Present: normal lung sounds bilaterally. Absent: respiratory distress, accessory muscle use - Cardiovascular Cardiovascular exam: Present: regular rate, normal rhythm, normal heart sounds - Abdominal Exam Abdominal exam: Present: soft, Non-Tender. Absent: tenderness, distention, guarding, rebound, rigidity - Expanded Upper Extremity Exam Shoulder exam: Present: normal inspection, full ROM Arm exam: Present: normal inspection, full ROM Elbow exam: Present: normal inspection, full ROM Forearm/Wrist exam: Present: normal inspection, full ROM Hand exam: Present: normal inspection, full ROM Vascular exam: Normal: capillary refill, radial pulse - Expanded Lower Extremity Exam Hip/Pelvis exam: Present: normal inspection, pelvis stable Upper leg exam: Present: tenderness (To palpation of right upper femur area. There does not appear to be any ecchymosis or swelling. No erythema.) Knee exam: Present: normal inspection, full ROM Lower leg exam: Present: normal inspection, full ROM Ankle exam: Present: normal inspection, full ROM Foot/toe exam: Present: normal inspection, full ROM Neurovascular/Tendon exam: Present: normal capillary refill. Absent: pulse deficit (Strong pedal pulses bilaterally. No sensation loss. Patient is holding her right leg in a flexed and abducted position.), motor deficit, sensory deficit, tendon deficit Gait: not tested/not observed - Back Exam Back exam: Present: normal inspection, full ROM, other (No midline tenderness step-offs or deformities to cervical thoracic or lumbar spine.). Absent: tenderness - Neurological Exam Neurological exam: Present: alert, oriented X3 - Psychiatric Psychiatric exam: Present: normal affect, normal mood - Skin Skin exam: Present: warm, dry, intact, normal color. Absent: rash, cyanosis, diaphoresis Course Course Narrative: Female patient presenting to [facility] after a mechanical fall. She is not on any blood thinners. Has no complaints other than right thigh pain. She does have an intertrochanteric right hip fracture. She has good sensation to her feet bilaterally. Has strong pulses bilaterally. The concern was for possible pathologic fracture is a CT was ordered. This shows a this is unlikely. I did speak with the orthopedic surgeon Dr. West who accepted the patient stable condition for consult. We did speak with the hospitalist as well. We will omit patient to the hospital likely for a orthopedic surgery tomorrow. She is agreeable with this plan. - Consultations Consultation #1: I spoke with Dr West. He states that he will see the Pt in consult. Time: 17:52 Consultation #2: Dr Godinez accepted Pt. Time: 17:53 Vital Signs Temperature 97.8 F 05/31/18 15:50 Pulse Rate 93 05/31/18 15:50 Respiratory Rate 18 05/31/18 15:50 Blood Pressure 143/91 05/31/18 15:50 O2 Sat by Pulse Oximetry 100 05/31/18 15:50 Temperature 97.8 F 05/31/18 15:50 Pulse Rate 102 05/31/18 18:06 Respiratory Rate 18 05/31/18 18:06 Blood Pressure 147/95 05/31/18 18:06 O2 Sat by Pulse Oximetry 99 05/31/18 18:06 Oxygen Delivery Oxygen Delivery Room Air Medical Decision Making - Medical Records Medical records reviewed: Yes I reviewed the patient's medical records. - Lab Data Lab results reviewed: Yes I reviewed the patient's lab results. Result diagrams: 05/31/18 17:23 05/31/18 17:23 Lab Results 05/31/18 05/31/18 05/31/18 Range/Units 17:23 17:23 17:24 WBC 11.1 (4.3-11.1) K/mcL RBC 4.31 (3.82-4.97) M/mcL Hgb 13.5 (11.5-15.4) g/dL Hct 39.4 (35.3-44.9) % MCV 91.4 (83.0-100.0) fL MCH 31.3 (28.0-33.3) pg MCHC 34.3 (31.6-35.5) g/dL RDW 12.3 (11.5-14.5) % Plt Count 238 (140-400) K/mcL MPV 9.5 (9.4-12.4) fL Immature Gran % 0.5 (0-4) % Seg Neutrophils % 87.8 % Lymphocytes % 7.0 % Monocytes % 4.0 % Eosinophils % 0.3 % Basophils % 0.4 % Neutrophils # 9.7 H (1.6-8.9) K/mcL Lymphocytes # 0.8 (0.6-4.6) K/mcL Monocytes # 0.4 (0.0-1.3) K/mcL Eosinophils # 0.0 (0.0-0.6) K/mcL Basophils # 0.0 (0.0-0.2) K/mcL PT 12.1 (9.4-12.1) Seconds INR 1.1 Sodium 139 (136-145) mEq/L Potassium 3.9 (3.5-5.1) mEq/L Chloride 104 (98-107) mEq/L Carbon Dioxide 24 (23-29) mEq/L BUN 22 (8-23) mg/dL Creatinine 1.14 (0.60-1.20) mg/dL Est GFR ( Amer) 55 L (> 60) Est GFR (Non-Af Amer) 46 L (> 60) BUN/Creatinine Ratio 19 (6-26) Glucose 169 H (70-105) mg/dL Calculated Osmolality 295 (280-300) Calcium 9.2 (8.6-10.3) mg/dL - Radiology Data Radiology results reviewed: Yes I reviewed the patient's radiology results. Hip X-Ray 05/31/18 16:07 IMPRESSION: Comminuted right intertrochanteric fracture. Again, the fracture margins are indistinct, which raise the possibility of a pathologic fracture. Further evaluation with CT is recommended. D/ / Anurag Goff MD / Anurag Goff MD Interpreting Provider: Anurag Goff MD Hip CT 05/31/18 17:22 IMPRESSION: Acute comminuted displaced and angulated right femoral intertrochanteric fracture. No obvious underlying pathologic lesion. D/ / Zachery Kebede MD / Zachery Kebede MD Interpreting Provider: Zachery Kebede MD Chest X-Ray 05/31/18 17:23 IMPRESSION: No acute cardiopulmonary disease. D/ / Nathanael Kwon MD / Nathanael Kwon MD Interpreting Provider: Nathanael Kwon MD - EKG Data EKG #1 EKG attestation: Yes I reviewed and interpreted this EKG. EKG results narrative: Sinus tachycardia at a rate of 101. NV interval is 208. QRS duration is Y3. QT is 368. QTC is 477. No signs of acute ischemia. No previous EKG to compare to. Good R-wave progression. Attestation Statement - Attestation Attestation: I, Mahamed Moreira, examined this patient and my medical decision-making was reviewed with the PRESTRESSED CONCRETE LABORER/PA/Advanced Practice Nurse/Resident Physician. I agree with the documented findings, disposition and treatment plan as described except to the extent set forth below. 82 yo female presents after a fall. fell backwards while walking. denies near syncopal symptoms and states she lost her balance. Pt unable to stand or ROM the R hip. Denies hitting her head or having loss of consciousness. pt has comminuted angulated intertrochanteric hip fracture. Pt will be admitted to hospitalist with ortho consult
[2018-05-31] MEDS ORDERED: *HR* FentaNYL (PF) 100 MCG/2 ML VIAL IVP ONE (18:04)
[2018-05-31 18:18] LABS: Basophils % 0.4 %; Eosinophils % 0.3 %; Hematocrit 39.4 % (35.3-44.9); Hemoglobin 13.5 g/dL (11.5-15.4); Immature Granulocytes % 0.5 % (0-4); Lymphocytes # 0.8 K/mcL (0.6-4.6); Mean Corpuscular HGB Conc 34.3 g/dL (31.6-35.5); Mean Corpuscular Hemoglobin 31.3 pg (28.0-33.3); Mean Corpuscular Volume 91.4 fL (83.0-100.0); Mean Platelet Volume 9.5 fL (9.4-12.4); Monocytes # 0.4 K/mcL (0.0-1.3); Neutrophils # 9.7 K/mcL (1.6-8.9); Platelet Count 238 K/mcL (140-400); Red Blood Count 4.31 M/mcL (3.82-4.97); Red Cell Distribution Width 12.3 % (11.5-14.5); Segmented Neutrophils % 87.8 %
[2018-05-31 18:25] LABS: INR 1.1; Prothrombin Time 12.1 Seconds (9.4-12.1)
[2018-05-31 18:33] LABS: Calcium 9.2 mg/dL (8.6-10.3); Potassium 3.9 mEq/L (3.5-5.1)
[2018-05-31] MEDS ORDERED: Ketorolac 15 MG/ML VIAL IVP PRN (21:10)
[2018-05-31] MEDS ORDERED: OXYCODONE Oral CONC 10 MG/0.5 ML ORAL.SYG SL PRN (21:10)
[2018-05-31] MEDS ORDERED: Naloxone 0.4 MG/ML INJ IVP PRN (21:10)
[2018-05-31] MEDS ORDERED: Ketorolac 15 MG/ML VIAL IVP ONE (21:11)
--- NOTE | 2018-05-31 21:30 | Orthopedic Consult Note ---
Date of Encounter: 05/31/18 Time of Encounter: 21:25 History of Present Illness Chief complaint: Right hip pain HPI: Ms. Varela is a 82 year old female who sustained a mechanical fall today when she was using her walker. Patient apparently has had difficulty with her balance and today she lost her balance and fell injuring her right hip. She was unable to ambulate. She was brought to the emergency room where x-rays taken revealed evidence of a complex right hip fracture. Question of a pathologic fracture was raised a CT scan was performed to further evaluate this fracture. Patient denies any other injuries. Patient does have a history of previous left hip fracture treated surgically about 3 years ago. I reviewed the patient's completed history and physical examination as well as reviewed the completed medical record. Pertinent orthopedic examination reveals shortening and some rotation of the right lower extremity. Distal neurosensory exam is grossly intact. X-rays reveal a complex peritrochanteric-type fracture with extension into the subtroc hanteric region. CT scan validates these findings. There is no evidence of a lytic lesion or soft tissue mass concerning for a pathologic fracture. Impression: Complex peritrochanteric fracture right proximal femur Recommendation: I discussed with the patient that this is a surgical fracture and would be best treated with the placement of a long femoral nail. I discussed with the patient that there are potential risks and complications of the surgery including but not limited to bleeding, infection, blood clots, nerve injury, leg length or rotational deformities as well as potential for nonunion. Patient states that she does have a short left leg already from previous left hip fracture. The patient has requested that I proceed with surgery. She has signed the informed consent for surgery. Have scheduled her for surgery for tomorrow when operating time is available. Thank you very much for allowing me to see care for Mrs. Varela. Sincerely, Bonifacio West,DO Past Med Surg Social Fam HX - Past Medical History Medical history: GERD, hypertension, kidney stones, thyroid disease, other Additional medical history: patient states she was taken off of her blood pressure meds due to her blood pressure dropping when she stood causing her to fall. Psychiatric history: no psych history - Past Surgical History Surgical History: herniorrhaphy, knee replacement, other Additional surgical history: stomach surgery. hip surgery - Social History Smoking Status: Never smoker Smokeless Tobacco Status: No Alcohol use: none Drug use: none, other - Family History Mother History Unknown: Yes Living Status: Father History Unknown: Yes Living Status: Sister History Unknown: Yes Living Status: Hx Family Cancer: Yes Medications and Allergies Cyclobenzaprine [Flexeril] 10 mg PO HS PRN 04/01/17 [History] raNITIdine HCl [Zantac] 150 mg PO BID 04/01/17 [History] amLODIPine [Norvasc] 5 mg PO DAILY #30 tab 04/10/17 [Rx] Vit C/Vit E/Lutein/Min/[place]-3 [Ocuvite Softgel] 1 cap PO DAILY 05/31/18 [History] Allergy/AdvReac Type Severity Reaction Status Date / Time No Known Allergies Allergy Verified 09/08/17 20:38 All Systems Reviewed: The remainder of the systems were reviewed and are negative Physical Exam - Constitutional Vitals: Temp Pulse Resp BP Pulse Ox 97.8 F 102 26 143/84 99 05/31/18 15:50 05/31/18 18:06 05/31/18 19:54 05/31/18 19:54 05/31/18 18:06 Results - Labs Result Diagrams: 05/31/18 17:23 05/31/18 17:23 Labs: Abnormal lab results Neutrophils # 9.7 K/mcL (1.6-8.9) H 05/31/18 17:23 Est GFR ( Amer) 55 (> 60) L 05/31/18 17:23 Est GFR (Non-Af Amer) 46 (> 60) L 05/31/18 17:23 Glucose 169 mg/dL (70-105) H 05/31/18 17:23 H & H 05/31/18 Range/Units 17:23 Hgb 13.5 (11.5-15.4) g/dL Hct 39.4 (35.3-44.9) % All other labs normal. - Diagnostic results Hip AP/Lateral x-ray: image reviewed Hip CT: image reviewed Consult Discharge Plan - Plan Referrals: David Grissom Jr, MD [Primary Care Provider] -
--- NOTE | 2018-05-31 21:44 | Internal Med History&Physical ---
Date of Encounter: 05/31/18 Time of Encounter: 21:39 Internal Medicine - H&P: HPI Chief complaint: fall Admitted From: Home Plans for Post Hospital Care: Home History of present illness: Ms. Varela is an 82 year old woman with multiple comorbidities including prior left hip fracture who suffered a mechanical fall this afternoon when she took one hand off the handle of her walker. She states that she lives alone at home but has home attendants round the clock except for a transition time in the afternoon where no one was present. She had difficulty with her balance and had the fall. On arrival to the ER she was seen clinically and hemodynamically stable. X-rays, reviewed independently by me, were revealing of a right hip fracture. At this time she is admitted to our service with orthopedics consultation r jocelyn. She reports feeling well and has no complaints except mild to moderate pain in her right hip and an inability to move the extremity. Past Med Surg Social Fam HX - Past Medical History Medical history: GERD, hypertension, kidney stones, thyroid disease, other Additional medical history: patient states she was taken off of her blood pressure meds due to her blood pressure dropping when she stood causing her to fall. Psychiatric history: no psych history - Past Surgical History Surgical History: herniorrhaphy, knee replacement, other Additional surgical history: stomach surgery. hip surgery - Social History Smoking Status: Never smoker Smokeless Tobacco Status: No Alcohol use: none Drug use: none, other - Family History Mother History Unknown: Yes Living Status: Father History Unknown: Yes Living Status: Sister History Unknown: Yes Living Status: Hx Family Cancer: Yes Internal Medicine - H&P: Meds Cyclobenzaprine [Flexeril] 10 mg PO HS PRN 04/01/17 [History] raNITIdine HCl [Zantac] 150 mg PO BID 04/01/17 [History] amLODIPine [Norvasc] 5 mg PO DAILY #30 tab 04/10/17 [Rx] Vit C/Vit E/Lutein/Min/[place]-3 [Ocuvite Softgel] 1 cap PO DAILY 05/31/18 [History] Allergy/AdvReac Type Severity Reaction Status Date / Time No Known Allergies Allergy Verified 09/08/17 20:38 All Systems PM: A 10-system review of systems was performed and is negative for pertinent findings except as documented above in the HPI. - Constitutional Vitals: Temp Pulse Resp BP Pulse Ox 97.8 F 102 26 143/84 99 05/31/18 15:50 05/31/18 18:06 05/31/18 19:54 05/31/18 19:54 05/31/18 18:06 Exam: Vitals: Reviewed General: Well-developed white female lying comfortably in bed in no acute distress Skin: Warm and supple HEENT: Moist mucous membranes. No conjunctivae pallor. Neck: No lymphadenopathy. No JVD. No carotid bruits. No palpable thyroid. Chest: Normal thoracic expansion. Normal breath sounds. Clear to auscultation. Heart: Normal S1 & S2; rhythmic. No rubs or murmurs. Abdomen: Non-distended, soft and non-tender to palpation. No peritoneal reaction. Liver is normal in size. Spleen is not palpable. Extremities: No clubbing, cyanosis or edema. No calf tenderness. Normal distal pulses. Right leg flexed at the knee with external rotation evident. Neurovascular exam intact. Neurological: Awake, alert and oriented to person, place and time. No focal deficits. Psych: Affect appropriate. Internal Med - H&P Results - Labs CBC & Chem 7: 05/31/18 17:23 05/31/18 17:23 Labs: Short CBC 05/31/18 Range/Units 17:23 WBC 11.1 (4.3-11.1) K/mcL Hgb 13.5 (11.5-15.4) g/dL Hct 39.4 (35.3-44.9) % Plt Count 238 (140-400) K/mcL Neutrophils # 9.7 H (1.6-8.9) K/mcL BMP 05/31/18 17:23 Sodium 139 Potassium 3.9 Chloride 104 Carbon Dioxide 24 BUN 22 Creatinine 1.14 Glucose 169 H Calcium 9.2 - Impressions ITS Impressions Hip X-Ray 05/31/18 16:07 IMPRESSION: Comminuted right intertrochanteric fracture. Again, the fracture margins are indistinct, which raise the possibility of a pathologic fracture. Further evaluation with CT is recommended. D/ / Anurag Goff MD / Anurag Goff MD Interpreting Provider: Anurag Goff MD Hip CT 05/31/18 17:22 IMPRESSION: Acute comminuted displaced and angulated right femoral intertrochanteric fracture. No obvious underlying pathologic lesion. D/ / Zachery Kebede MD / Zachery Kebede MD Interpreting Provider: Zachery Kebede MD Chest X-Ray 05/31/18 17:23 IMPRESSION: No acute cardiopulmonary disease. D/ / Nathanael Kwon MD / Nathanael Kwon MD Interpreting Provider: Nathanael Kwon MD - Assessment and plan (1) Hip fracture Current Visit: Yes Status: Acute Assessment and plan: Secondary to traumatic fall with underlying osteoporosis. Will place on analgesics as needed. Keep NPO PMN except medications. DVT prophylaxis with IPC stockings. Surgery per OR schedule by Ortho. Qualifiers: Encounter type: initial encounter Fracture type: closed Laterality: right Qualified Code(s): S72.001A - Fracture of unspecified part of neck of right femur, initial encounter for closed fracture (2) DVT prophylaxis Current Visit: Yes Status: Acute Assessment and plan: Indicated. IPC for now pre-operatively. (3) HTN (hypertension) Current Visit: Yes Status: Acute Assessment and plan: Will continue home anti-hypertensives. Currently well controlled. Qualifiers: Hypertension type: essential hypertension Qualified Code(s): I10 - Essen tial (primary) hypertension (4) Multiple falls Current Visit: Yes Status: Acute Assessment and plan: She will benefit from PT/OT evaluation and rehab after surgery. psychiatric social worker assistance as well for full-time home assistance coverage. - Time Spent With Patient Total time spent is greater than 50% in coordination of care (as documented) at patient's floor/unit and/or counseling patient: Greater than 35 minutes
[2018-05-31] MEDS ORDERED: *HR* Heparin 5,000 UNIT/ML VIAL SQ SCH (22:00)
[2018-05-31] MEDS: D5% in Lactated Ringers 1,000 ML IVC SCH (22:38)
[2018-06-01] MEDS: OXYCODONE Oral CONC 10 MG/0.5 ML ORAL.SYG SL PRN ×4 (00:46→23:31)
[2018-06-01] MEDS: Famotidine 20 MG TABLET PO SCH ×2 (09:19→19:40)
[2018-06-01] MEDS: amLODIPine 5 MG TABLET PO SCH (09:20)
[2018-06-01] MEDS ORDERED: Ondansetron 4 MG/2 ML VIAL IVP PRN (10:07)
[2018-06-01] MEDS: D5% in Lactated Ringers 1,000 ML IVC SCH (13:24)
[2018-06-01] MEDS ORDERED: Perflutren Lipid Microsphere 1.3 ML in 0.9 % Sodium Chloride 8.7 ML IVP ONE (21:21)
--- NOTE | 2018-06-01 21:31 | Internal Med Progress Note ---
Hospitalist Progress Note - Encounter Date of Encounter: 06/01/18 Time of Encounter: 19:00 - Subjective Interval History: SUBJECTIVE: The patient feels pretty good. She does have pain in the area of the right hip. Not associated with any chest pain or difficulty breathing. Denies coughing and wheezing. Denies abdominal pain, nausea and vomiting. She has normal urination. OBJECTIVE: Skin: Free of rash and discoloration. ENMT: Oral/pharyngeal mucosa is normal in appearance. Eyes: Sclera is white. There is no discharge from eyes. Respiratory: Normal breath sounds; no crackles or wheezes. CV: Heart is regular; no gallop or murmur. GI: Abdomen is soft and not tender. There is no palpable mass or visceromegaly. Neuro: There is no focal deficits. ASSESSMENT AND PLAN: Right hip fracture. The patient is waiting for her surgery. A long nail will be inserted by an orthopedic surgeon. Continue when necessary Toradol and/or sublingual oxycodone. 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 Under control. We will continue Norvasc. GERD. Under control. We will keep her on Pepcid. DISPOSITION: Xxxxx - Exam Vitals: Temp Pulse Resp BP Pulse Ox 97.9 F 95 16 137/75 94 06/01/18 19:24 06/01/18 19:24 06/01/18 19:24 06/01/18 19:24 06/01/18 19:24 Exam: xx - Assessment and Plan (1) Hip fracture Current Visit: Yes Status: Acute (2) Hypertensive renal disease with renal failure Current Visit: Yes Status: Acute (3) GERD (gastroesophageal reflux disease) Current Visit: Yes Status: Chronic - Time Spent with Patient Total time spent is greater than 50% in coordination of care (as documented) at patient's floor/unit and/or counseling patient: 25 - 35 minutes Plan of Care Discussed with: patient Internal Medicine: Result - Labs CBC & Chem 7: 05/31/18 17:23 05/31/18 17:23 - ABG Interpretation ABG results: PT/INR, D-dimer PT 12.1 Seconds (9.4-12.1) 05/31/18 17:24 Consult Discharge Plan - Plan Referrals: David Grissom Jr, MD [Primary Care Provider] - (1) Hip fracture Qualifiers: Encounter type: initial encounter Fracture type: closed Laterality: right Qualified Code(s): S72.001A - Fracture of unspecified part of neck of right femur, initial encounter for closed fracture (3) GERD (gastroesophageal reflux disease) Qualifiers: Esophagitis presence: esophagitis presence not specified Qualified Code(s): K21.9 - Gastro-esophageal reflux disease without esophagitis
--- NOTE | 2018-06-01 23:28 | Anesthesia Evaluation PreOp ---
<Oriana Xiao - Last Filed: 06/01/18 23:25> Date of Encounter: 06/01/18 Time of Encounter: 23:26 - Past History Planned Operation: IM nail R hip Cardiac History: HTN Pulmonary History: Denies Any Significant HX HEAT TREATER APPRENTICE History: Denies Any Significant HX Other Medical History: Renal (stones), GERD Anesthesia History: Past Anesthesia (TKA, L TFN), Problems (?arrhythmia during TFN) Alcohol Use: none Drug use: none, other Medications and Allergies Cyclobenzaprine [Flexeril] 10 mg PO HS PRN 04/01/17 [History] raNITIdine HCl [Zantac] 150 mg PO BID 04/01/17 [History] amLODIPine [Norvasc] 5 mg PO DAILY #30 tab 04/10/17 [Rx] Vit C/Vit E/Lutein/Min/[place]-3 [Ocuvite Softgel] 1 cap PO DAILY 05/31/18 [History] Allergy/AdvReac Type Severity Reaction Status Date / Time No Known Allergies Allergy Verified 09/08/17 20:38 - Meds/Allergy Pre-op Review Medications Reviewed: Yes Allergies Reviewed: Yes Beta Blockers on Current Med List: No Anesthesia Results - Labs 05/31/18 17:23 05/31/18 17:23 - Imaging EKG: report reviewed (SINUS RHYTHM RIGHT BUNDLE BRANCH BLOCK [120+ ms QRS DURATION, UPRIGHT V1, 40+ ms S IN I/aVL/V4/V5/V6] Electronically Signed On 01-06-2018 18:21:49 EDT by David Grissom) Anesthesia Exam Vital Signs/O2 Sat, Most Current Temp Pulse Resp BP Pulse Ox 97.9 F 95 16 137/75 94 06/01/18 19:24 06/01/18 19:24 06/01/18 19:24 06/01/18 19:24 06/01/18 19:24 Weight: 56kg NPO (# of Hours): MN - HEENT Pupil (Motor): Pupils equal, EOMI Mallampati: II Teeth: Edentulous Oral Opening: Greater than 3 - HEAT TREATER APPRENTICE LOC: Oriented HEAT TREATER APPRENTICE Motor: Normal RUE, Normal LUE, Normal LLE, Normal Face, Deficit RLE (hip fx) HEAT TREATER APPRENTICE Sensory: Normal: RUE, LUE, RLE, LLE, Face - Cardiac Rhythm: Regular - Pulmonary Breath Sounds: bilateral Clear Respiratory Effort: Symmetrical Anesthesia Assess/Plan ASA Score: 2 Modified [place] Scale for Level of Consciousness: Cooperative, oriented, and tranquil Anesthetic Plan: General Monitoring Plan: Standard Monitors Recovery Plan: PACU <Mahamed Eddy - Last Filed: 06/02/18 17:47> - Past History : No Anesthesia Results - Labs 05/31/18 17:23 05/31/18 17:23 Anesthesia Exam Vital Signs/O2 Sat, Most Current Temp Pulse Resp BP Pulse Ox 97.9 F 94 16 121/76 94 06/02/18 15:29 06/02/18 15:29 06/02/18 15:29 06/02/18 15:29 06/02/18 15:29 Pain Scale: 0 Pain Scale Used: Numeric (1 - 10) - HEENT Denture Type: Upper: Complete, Lower: Complete - HEAT TREATER APPRENTICE HEAT TREATER APPRENTICE Motor: Normal RUE, Normal LUE, Normal RLE, Normal LLE, Normal Face HEAT TREATER APPRENTICE Sensory: Normal: RUE, LUE, RLE, LLE, Face - Cardiac Rhythm: Regular Murmur: None JVD: No Carotid Bruit: No - Pulmonary Breath Sounds: bilateral Clear Respiratory Effort: Symmetrical
[2018-06-02] MEDS: OXYCODONE Oral CONC 10 MG/0.5 ML ORAL.SYG SL PRN ×2 (08:57→17:09)
[2018-06-02] MEDS: Famotidine 20 MG TABLET PO SCH ×2 (08:57→23:57)
[2018-06-02] MEDS: amLODIPine 5 MG TABLET PO SCH (08:57)
[2018-06-02] MEDS ORDERED: Lidocaine -MPF 2% 2 ML VIAL ONE (18:20)
[2018-06-02] MEDS ORDERED: *HR* FentaNYL (PF) 100 MCG/2 ML VIAL ONE (18:20)
[2018-06-02] MEDS ORDERED: *HR* Propofol 200 MG/20 ML VIAL IVP ONE (18:21)
[2018-06-02] MEDS ORDERED: Lidocaine -MPF 4% 5 ML AMPUL ONE (18:23)
[2018-06-02] MEDS ORDERED: EPHEDrine 50 MG/ML VIAL ONE (18:27)
[2018-06-02] MEDS ORDERED: *HR* PHENYLEPHRINE 1,000 MCG/10 ML SYRINGE IVP ONE (18:27)
[2018-06-02] MEDS ORDERED: Dexamethasone 4 MG/ML VIAL ONE (19:08)
[2018-06-02] MEDS ORDERED: Ondansetron 4 MG/2 ML VIAL ONE (19:08)
[2018-06-02] MEDS ORDERED: Acetaminophen IV 1,000 MG/100 ML INFUS..BTL ONE (19:16)
[2018-06-02] MEDS ORDERED: *HR* FentaNYL (PF) 100 MCG/2 ML VIAL IVP PRN ×2 (19:38→21:37)
[2018-06-02] MEDS ORDERED: Naloxone 0.4 MG/ML INJ IVP PRN ×3 (19:38→21:37)
[2018-06-02] MEDS ORDERED: Ondansetron 4 MG/2 ML VIAL IVP ONE ×2 (19:38→21:37)
[2018-06-02] MEDS ORDERED: *HR* OxyCODONE Immed Rel 5 MG TABLET PO PRN ×2 (19:38→21:37)
[2018-06-02] MEDS ORDERED: Ringers Solution, Lactated 1,000 ML IVC SCH (19:45)
--- NOTE | 2018-06-02 21:27 | Operative Note ---
Date of procedure: 06/02/18 Pre-op diagnosis: Peritrochanteric fracture right proximal femur Post-op diagnosis: same Procedure: 1. Intramedullary nailing right hip/femur 2. Fluoroscopic guidance for IM nailing right femur Implants: Synthes 11 mm x 360 mm x 130 degree TFNA with a 11 mm x 90 mm helical blade and a 46 mm x 5.0 mm distal locking screw Anesthesia: SANDIEA Surgeon: Bonifacio West Was there an operations and intelligence assistant present: No Estimated blood loss (cc): 150 Specimen: None Condition: stable Disposition: PACU Procedure in Detail: Gross findings: Preoperative x-rays revealed a complex comminuted peritrochanteric-type fracture of the right proximal femur with predominantly a transverse inter-and subtrochanteric type pattern. Marked comminution was noted. Lesser trochanter was intact distally but appeared split in the midportion. Femoral head remained seated. Patient did have a previous intramedullary nailing of the left hip. Fracture was well healed. Intraoperative fluoroscopy was used to guide the reduction into excellent position. The fracture was then stabilized with a long trochanteric femoral nail extending to just above the knee. It was stabilized with a single distal locking screw. Excellent alignment of the fracture was noted with the implants noted to be well contained. Procedure: Patient was taken the operating room and while the hospital bed was administered a general anesthesia. Patient was then transferred to the fracture table. At this time the right lower extremity was placed in longitudinal traction and the left lower extremity was positioned out of harm's way in the well leg james. Limited motion of the left hip was encountered which made fluoroscopic use difficult. The reduction was then performed utilizing a combination of adduction and, traction and some internal rotation. This allowed the fracture to be well reduced though not anatomic. The hip and leg were then prepped and draped in normal standard fashion for surgery. This incision was made above the trochanter on the lateral side. Dissection was carried through subcutaneous tissues down the level of the tensor fascia sho which was split parallel with its fibers and dissection was carried directly onto the tip of the trochanter. Location of the entrance site was made. A guidepin was placed. The trochanter was then opened up with the coring type reamer. A ball-tipped guide ray was then passed down the femoral canal and verified to be well contained with multiplane are fluoroscopy. The femoral canal was then reamed with the flexible reamers up to and including a size 12.5 mm reamer. The 11 mm x 360 mm trochanteric nail was then passed over the guidewire and impacted into position until it sat at the appropriate position. Guidewire was removed. The nail was seated in appropriate position and then utilizing the 130 degree guide incision was made and the guide was passed up against the lateral femoral cortex. Guide pin was placed in a slightly inferior position on the AP view and placed centrally in the head. Length was measured and a 90 mm helical blade was selected. was selected. The neck was reamed. The helical blade was then placed and impacted into position. The blade was locked from rotating with the superior screw. The fracture was then compressed. All traction was now taken off the fracture site. At this time utilizing a freehand "perfect circles" technique a single distal locking screw was placed with a separate stab wound. Final fluoroscopic views now taken in multiple planes verifying the fracture remained well reduced and implant was in excellent position. Wounds now irrigated and closed. Fascia was closed with #1 Vicryl. Deep subtendinous tissue was closed with #1 Vicryl. Medius obtained his tissue was closed with multiple inverted interrupted 2-0 undyed Vicryl followed by skin approximation with a running septic her stitches of 3-0 strata fix followed by pernio skin glue and then honeycomb Bioclusive dressings. Patient was now transferred from the fracture table to hospital bed, awakened from anesthesia and then transferred to the postanesthesia care unit in stable and satisfactory condition. All sponge needle and isthmic counts are correct. No specimens are sent for pathology.
[2018-06-02] MEDS ORDERED: Ondansetron 4 MG/2 ML VIAL IVP PRN (21:37)
[2018-06-02] MEDS ORDERED: Ketorolac 15 MG/ML VIAL IVP PRN (21:37)
--- NOTE | 2018-06-02 22:19 | Internal Med Progress Note ---
Hospitalist Progress Note - Encounter Date of Encounter: 06/02/18 Time of Encounter: 11:00 - Subjective Interval History: SUBJECTIVE: The patient is waiting for her right hip surgery. It was not done yesterday. It is supposed to be done today. She continues to have some pain in the area of right hip. Denies chest pain and difficulty breathing. Denies abdominal pain, nausea and vomiting. She makes good amounts of urine. OBJECTIVE: Skin: Free of rash and discoloration. ENMT: Oral/pharyngeal mucosa is normal in appearance. Eyes: Sclera is white. There is no discharge from eyes. Respiratory: Normal breath sounds; no crackles or wheezes. CV: Heart is regular; no gallop or murmur. GI: Abdomen is soft and not tender. There is no palpable mass or visceromegaly. Neuro: There is no focal deficits. ASSESSMENT AND PLAN: Right hip fracture. The patient is waiting for her surgery. A long nail will be inserted by an orthopedic surgeon. Continue when necessary Toradol and/or sublingual oxycodone. 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 Under control. We will continue Norvasc. GERD. Under control. We will keep her on Pepcd. - Exam Vitals: Temp Pulse Resp BP Pulse Ox 97.9 F 96 15 147/78 95 06/02/18 21:30 06/02/18 21:30 06/02/18 21:30 06/02/18 21:30 06/02/18 21:30 Exam: xx - Assessment and Plan (1) Hip fracture Current Visit: Yes Status: Acute (2) Hypertensive renal disease with renal failure Current Visit: Yes Status: Acute (3) GERD (gastroesophageal reflux disease) Current Visit: Yes Status: Chronic - Time Spent with Patient Total time spent is greater than 50% in coordination of care (as documented) at patient's floor/unit and/or counseling patient: 25 - 35 minutes Plan of Care Discussed with: patient Internal Medicine: Result - Labs CBC & Chem 7: 05/31/18 17:23 05/31/18 17:23 - ABG Interpretation ABG results: PT/INR, D-dimer PT 12.1 Seconds (9.4-12.1) 05/31/18 17:24 - Impressions Impressions Echocardiogram 06/01/18 20:56 Impressions: LVEF 65-70%. Normal LV chamber size, wall thickness and systolic function. Mild left ventricular diastolic dysfunction. Normal right ventricular structure and function. Mild to moderate aortic regurgitation. Fluoroscopy 06/02/18 18:55 IMPRESSION: Fluoroscopy provided during ORIF of the intertrochanteric right hip. D/ / Blane Castillo MD / Blane Castillo MD Interpreting Provider: Blane Castillo MD Consult Discharge Plan - Plan Referrals: David Grissom Jr, MD [Primary Care Provider] - (1) Hip fracture Qualifiers: Encounter type: initial encounter Fracture type: closed Laterality: right Qualified Code(s): S72.001A - Fracture of unspecified part of neck of right femur, initial encounter for closed fracture (3) GERD (gastroesophageal reflux disease) Qualifiers: Esophagitis presence: esophagitis presence not specified Qualified Code(s): K21.9 - Gastro-esophageal reflux disease without esophagitis
--- NOTE | 2018-06-02 22:38 | Anesthesia Evaluation Post Op ---
Date of Encounter: 06/02/18 Time of Encounter: 21:20 - Vital Signs Vital Signs: Vital Signs/O2 Sat, Most Current Temp Pulse Resp BP Pulse Ox 98.6 F 97 12 112/75 97 06/02/18 22:00 06/02/18 22:00 06/02/18 22:00 06/02/18 22:00 06/02/18 22:00 - Lungs Lungs: Clear Ascult./Percussion - Airway Airway: Non-obstructed - Cardiovascular Regular Rate - Mental Status Mental Status: Asleep with brisk response to light stimulation - Pain Pain Scale: 0 Pain Scale used: Numeric (1 - 10) - Nausea Vomiting Nausea Vomiting: Not Present - Hydration Hydration: NPO - Discharge PostOp Status: Transfer Patient to floor
[2018-06-03] MEDS: Ringers Solution, Lactated 1,000 ML IVC SCH ×2 (00:16→23:19)
[2018-06-03] MEDS: OXYCODONE Oral CONC 10 MG/0.5 ML ORAL.SYG SL PRN ×2 (06:39→21:51)
[2018-06-03] MEDS: Famotidine 20 MG TABLET PO SCH ×2 (07:52→20:12)
[2018-06-03] MEDS: amLODIPine 5 MG TABLET PO SCH (07:55)
--- NOTE | 2018-06-03 19:10 | Orthopedics Progress Note ---
Date of Encounter: 06/03/18 Time of Encounter: 19:05 Subjective Principal diagnosis: R Femur Fx Interval history: Dragon not Functional POD #1 C/O spasm RLE VSS A Dressings dry NVI Plan: Ambulate Check labs in AM SNF Objective Vital signs: Vital Signs Temp Pulse Resp BP Pulse Ox 06/03/18 16:43 97.9 F 111 17 94/59 94 06/03/18 11:00 97.8 F 94 16 112/72 93 06/03/18 07:45 105/72 06/03/18 07:18 98.3 F 97 16 105/68 91 06/03/18 03:39 98.0 F 95 17 116/74 97 06/02/18 22:30 98.5 F 96 12 114/74 97 06/02/18 22:00 98.6 F 97 12 112/75 97 06/02/18 21:30 97.9 F 96 15 147/78 95 06/02/18 21:21 99.2 F 91 12 136/71 97 06/02/18 21:12 90 12 127/66 95 06/02/18 21:02 87 14 133/67 99 06/02/18 20:52 98.5 F 86 14 122/67 100 Intake and Output 06/03/18 06/03/18 06/03/18 07:59 15:59 23:59 Intake Total 100 / 100 290 / 290 Balance 100 / 100 290 / 290 Intake: IV Fluids 100 / 100 Ancef 2,000 MG In 0.9 % Sodium 100 / 100 Chloride 100 ML @ 200 mls/hr IVPB Q8HR [facility] Rx#:[id number] Oral 290 / 290 Other: Meal Lunch Percent of Meal Consumed 45% # Voids 1 Weight 63.8 kg Patient Weight 06/03/18 23:59 Weight 63.8 kg - Labs CBC & BMP: 05/31/18 17:23 05/31/18 17:23 Labs: Abnormal lab results Neutrophils # 9.7 K/mcL (1.6-8.9) H 05/31/18 17:23 Est GFR ( Amer) 55 (> 60) L 05/31/18 17:23 Est GFR (Non-Af Amer) 46 (> 60) L 05/31/18 17:23 Glucose 169 mg/dL (70-105) H 05/31/18 17:23 Consult Discharge Plan - Plan Referrals: David Grissom Jr, MD [Primary Care Provider] -
--- NOTE | 2018-06-03 22:26 | Electrocardiograph Report ---
[address] [address] Test Date: 2018-05-31 Pat Name: Suyapa Varela Department: EXAMC1 Room: [facility] Gender: F Title Specialist: : 1935 Requested By: Tracee Reed Order Number: [id number] Reading MD: Alli So Measurements Intervals [place] Rate: 101 P: 64 DC: 208 QRS: 11 QRSD: 103 T: 57 QT: 368 QTc: 477 Interpretive Statements Sinus tachycardia Borderline prolonged DC interval Abnormal R-wave progression, early transition Electronically Signed On 06-03-2018 22:24:46 EDT by Alli So
--- NOTE | 2018-06-03 22:42 | Electrocardiograph Report ---
[address] [address] Test Date: 2018-06-01 Pat Name: Suyapa Varela Department: 114 Room: [facility] Gender: F Director Of Application Development: TAMI : 1935 Requested By: [id number] Order Number: [id number] Reading MD: Alli So Measurements Intervals [place] Rate: 97 P: 61 MD: 189 QRS: 14 QRSD: 101 T: 66 QT: 337 QTc: 392 Interpretive Statements Normal sinus rhythm Abnormal R-wave progression, early transition Electronically Signed On 06-03-2018 22:41:26 EDT by Alli So
--- NOTE | 2018-06-03 23:28 | Internal Med Progress Note ---
Hospitalist Progress Note - Encounter Date of Encounter: 06/03/18 Time of Encounter: 16:00 - Subjective Interval History: SUBJECTIVE: The patient had right hip surgery yesterday. The pain in that area is mild/moderate. She has not started physical therapy yet. Denies chest pain and difficulty breathing. Denies abdominal pain, nausea and vomiting. She makes good amounts of urine. OBJECTIVE: Skin: Free of rash and discoloration. ENMT: Oral/pharyngeal mucosa is normal in appearance. Eyes: Sclera is white. There is no discharge from eyes. Respiratory: Normal breath sounds; no crackles or wheezes. CV: Heart is regular; no gallop or murmur. GI: Abdomen is soft and not tender. There is no palpable mass or visceromegaly. Neuro: There is no focal deficits. ASSESSMENT AND PLAN: Right hip fracture. A long nail was inserted. The patient will start physical therapy in the hospital. [facility] be [facility] at [facility]. Her pain is controlled with when necessary oxycodone. 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 Under control. We will continue Norvasc. GERD. Under control. We will keep her on Pepcid. - Exam Vitals: Temp Pulse Resp BP Pulse Ox 100.3 F H 110 20 129/74 95 06/03/18 22:00 06/03/18 22:00 06/03/18 22:00 06/03/18 22:00 06/03/18 22:00 Exam: xx - Assessment and Plan (1) Hip fracture Current Visit: Yes Status: Acute (2) Hypertensive renal disease with renal failure Current Visit: Yes Status: Acute (3) GERD (gastroesophageal reflux disease) Current Visit: Yes Status: Chronic - Time Spent with Patient Total time spent is greater than 50% in coordination of care (as documented) at patient's floor/unit and/or counseling patient: 25 - 35 minutes Plan of Care Discussed with: patient Internal Medicine: Result - Labs CBC & Chem 7: 05/31/18 17:23 05/31/18 17:23 - ABG Interpretation ABG results: PT/INR, D-dimer PT 12.1 Seconds (9.4-12.1) 05/31/18 17:24 Consult Discharge Plan - Plan Referrals: David Grissom Jr, MD [Primary Care Provider] - (1) Hip fracture Qualifiers: Encounter type: initial encounter Fracture type: closed Laterality: right Qualified Code(s): S72.001A - Fracture of unspecified part of neck of right femur, initial encounter for closed fracture (3) GERD (gastroesophageal reflux disease) Qualifiers: Esophagitis presence: esophagitis presence not specified Qualified Code(s): K21.9 - Gastro-esophageal reflux disease without esophagitis
[2018-06-04] MEDS: OXYCODONE Oral CONC 10 MG/0.5 ML ORAL.SYG SL PRN (02:24)
[2018-06-04 04:12] LABS: Basophils % 0.4 %; Eosinophils # 0.3 K/mcL (0.0-0.6); Eosinophils % 3.6 %; Hematocrit 25.8 % (35.3-44.9); Immature Granulocytes % 0.4 % (0-4); Lymphocytes # 1.1 K/mcL (0.6-4.6); Mean Corpuscular HGB Conc 33.7 g/dL (31.6-35.5); Mean Corpuscular Hemoglobin 31.3 pg (28.0-33.3); Mean Corpuscular Volume 92.8 fL (83.0-100.0); Mean Platelet Volume 9.8 fL (9.4-12.4); Monocytes # 0.8 K/mcL (0.0-1.3); Monocytes % 10.1 %; Neutrophils # 5.3 K/mcL (1.6-8.9); Platelet Count 171 K/mcL (140-400); Red Blood Count 2.78 M/mcL (3.82-4.97); Red Cell Distribution Width 12.2 % (11.5-14.5); Segmented Neutrophils % 70.5 %
[2018-06-04 04:13] LABS: Hemoglobin 8.7 g/dL (11.5-15.4)
[2018-06-04 04:27] LABS: BUN/Creatinine Ratio 23 (6-26); Blood Urea Nitrogen 23 mg/dL (8-23); Calcium 8.3 mg/dL (8.6-10.3); Carbon Dioxide 23 mEq/L (23-29); Chloride 103 mEq/L (98-107); Glucose 122 mg/dL (70-105); Osmolality,Calculated 285 (280-300); Potassium 3.6 mEq/L (3.5-5.1); Sodium 135 mEq/L (136-145); eGFR For Non-African Americans 53 (> 60)
[2018-06-04] MEDS: Famotidine 20 MG TABLET PO SCH ×2 (09:58→21:40)
[2018-06-04] MEDS: amLODIPine 5 MG TABLET PO SCH (10:00)
--- NOTE | 2018-06-04 13:22 | Orthopedics Progress Note ---
Date of Encounter: 06/04/18 Time of Encounter: 13:19 Subjective Principal diagnosis: R Femur Fx Interval history: Rima not Functional POD #1 C/O spasm RLE VSS A Dressings dry NVI Plan: Ambulate Check labs in AM SNF 06/04/2018. Patient complains of spasm in the leg still as well as pain in and around the right hip area. Discuss the extent of surgery and the complexity of her fracture. Also discussed pain management as opposed to being pain-free. Vital signs are stable. Patient is afebrile. Dressings are clean and dry. Thigh is edematous and swollen as expected. Hemoglobin 8.7. Platelet count normal at 171. White blood cell count normal at 7.5. Impression: POD #2 intramedullary nailing complex peritrochanteric/subtrochanteric fracture right proximal femur Recommendation: Patient encouraged to be ambulatory and work on range of motion. Only limitation is to maintain strict touchdown weightbearing only. Do not want patient to progress to weightbearing as tolerated into we start to see some fracture healing. Was dressings are dry and intact, patient can shower. No bathing or soaking. Patient is stable from an orthopedics point review. Can be discharged to SNF/rehabilitation when medically stable and arrangements completed. We will need follow-up with me in roughly 3-4 weeks' time or sooner should any problems arise. Objective Vital signs: Vital Signs Temp Pulse Resp BP Pulse Ox 06/04/18 07:12 97.8 F 89 17 121/70 95 06/04/18 05:17 98.5 F 88 16 102/59 93 06/04/18 00:11 99.4 F 92 16 117/74 100 06/03/18 22:00 100.3 F H 110 20 129/74 95 06/03/18 19:44 99.1 F 104 17 103/66 93 06/03/18 16:43 97.9 F 111 17 94/59 94 Intake and Output 06/03/18 06/04/18 06/04/18 23:59 07:59 15:59 Intake Total 60 / 60 0 / 0 Output Total 0 / 0 Balance 60 / 60 0 / 0 Intake: Oral 0 / 0 Free Water 60 / 60 Output: Urine 0 / 0 Other: # Urine Diapers 1 1 Weight 63.1 kg Patient Weight 06/04/18 23:59 Weight 63.1 kg - Labs CBC & BMP: 06/04/18 03:42 06/04/18 03:42 Labs: Abnormal lab results RBC 2.78 M/mcL (3.82-4.97) L 06/04/18 03:42 Hgb 8.7 g/dL (11.5-15.4) L D 06/04/18 03:42 Hct 25.8 % (35.3-44.9) L 06/04/18 03:42 Sodium 135 mEq/L (136-145) L 06/04/18 03:42 Est GFR (Non-Af Amer) 53 (> 60) L 06/04/18 03:42 Glucose 122 mg/dL (70-105) H 06/04/18 03:42 Calcium 8.3 mg/dL (8.6-10.3) L 06/04/18 03:42 Consult Discharge Plan - Plan Referrals: David Grissom Jr, MD [Primary Care Provider] -
--- NOTE | 2018-06-04 20:23 | Internal Med Progress Note ---
Hospitalist Progress Note - Encounter Date of Encounter: 06/04/18 Time of Encounter: 14:00 - Subjective Interval History: SUBJECTIVE: The patient had right hip surgery 2 days ago. She complains of cramping in lower extremities. He denies chest pain and difficulty breathing. She has not started physical therapy yet. OBJECTIVE: Skin: Free of rash and discoloration. ENMT: Oral/pharyngeal mucosa is normal in appearance. Eyes: Sclera is white. There is no discharge from eyes. Respiratory: Normal breath sounds; no crackles or wheezes. CV: Heart is regular; no gallop or murmur. GI: Abdomen is soft and not tender. There is no palpable mass or visceromegaly. Neuro: There is no focal deficits. ASSESSMENT AND PLAN: Right hip fracture. A long nail was inserted. Physical therapy has been requested. To be continued at [facility]. Her pain is controlled with when necessary oxycodone. I will give her when necessary Flexeril or cramping in legs. I will give her supplemental potassium and chloride; she is mildly hypokalemic. 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 Under control. We will continue Norvasc. GERD. Under control. We will keep her on Pepcid. - Exam Vitals: Temp Pulse Resp BP Pulse Ox 98.6 F 95 16 117/62 93 06/04/18 19:11 06/04/18 19:11 06/04/18 19:11 06/04/18 19:11 06/04/18 19:11 Exam: xx - Assessment and Plan (1) Hip fracture Current Visit: Yes Status: Acute (2) Hypertensive renal disease with renal failure Current Visit: Yes Status: Acute (3) GERD (gastroesophageal reflux disease) Current Visit: Yes Status: Chronic - Time Spent with Patient Total time spent is greater than 50% in coordination of care (as documented) at patient's floor/unit and/or counseling patient: 25 - 35 minutes Plan of Care Discussed with: patient Internal Medicine: Result - Labs CBC & Chem 7: 06/04/18 03:42 06/04/18 03:42 Labs: Short CBC 06/04/18 Range/Units 03:42 WBC 7.5 (4.3-11.1) K/mcL Hgb 8.7 L D (11.5-15.4) g/dL Hct 25.8 L (35.3-44.9) % Plt Count 171 (140-400) K/mcL Neutrophils # 5.3 (1.6-8.9) K/mcL BMP 06/04/18 03:42 Sodium 135 L Potassium 3.6 Chloride 103 Carbon Dioxide 23 BUN 23 Creatinine 1.00 Glucose 122 H Calcium 8.3 L - ABG Interpretation ABG results: PT/INR, D-dimer PT 12.1 Seconds (9.4-12.1) 05/31/18 17:24 Consult Discharge Plan - Plan Referrals: David Grissom Jr, MD [Primary Care Provider] - (1) Hip fracture Qualifiers: Encounter type: initial encounter Fracture type: closed Laterality: right Qualified Code(s): S72.001A - Fracture of unspecified part of neck of right femur, initial encounter for closed fracture (3) GERD (gastroesophageal reflux disease) Qualifiers: Esophagitis presence: esophagitis presence not specified Qualified Code(s): K21.9 - Gastro-esophageal reflux disease without esophagitis
[2018-06-05] MEDS: OXYCODONE Oral CONC 10 MG/0.5 ML ORAL.SYG SL PRN ×2 (01:51→12:20)
[2018-06-05 05:39] LABS: Basophils % 0.4 %; Eosinophils % 5.9 %; Hematocrit 26.4 % (35.3-44.9); Hemoglobin 8.8 g/dL (11.5-15.4); Immature Granulocytes % 0.1 % (0-4); Lymphocytes % 13.3 %; Mean Corpuscular HGB Conc 33.3 g/dL (31.6-35.5); Mean Corpuscular Hemoglobin 31.1 pg (28.0-33.3); Mean Corpuscular Volume 93.3 fL (83.0-100.0); Mean Platelet Volume 9.5 fL (9.4-12.4); Monocytes % 10.4 %; Platelet Count 189 K/mcL (140-400); Red Blood Count 2.83 M/mcL (3.82-4.97); Segmented Neutrophils % 69.9 %
[2018-06-05 05:40] LABS: Eosinophils # 0.4 K/mcL (0.0-0.6); Lymphocytes # 0.9 K/mcL (0.6-4.6); Monocytes # 0.7 K/mcL (0.0-1.3); Neutrophils # 4.8 K/mcL (1.6-8.9)
[2018-06-05 05:54] LABS: BUN/Creatinine Ratio 25 (6-26); Blood Urea Nitrogen 22 mg/dL (8-23); Calcium 8.4 mg/dL (8.6-10.3); Carbon Dioxide 25 mEq/L (23-29); Chloride 105 mEq/L (98-107); Glucose 101 mg/dL (70-105); Osmolality,Calculated 285 (280-300); Potassium 4.1 mEq/L (3.5-5.1); Sodium 136 mEq/L (136-145); eGFR For Non-African Americans > 60 (> 60)
[2018-06-05] MEDS: amLODIPine 5 MG TABLET PO SCH (08:49)
[2018-06-05] MEDS: Famotidine 20 MG TABLET PO SCH (08:49)
--- NOTE | 2018-06-05 15:49 | Discharge Summary ---
Orders not resulted at time of discharge: Pending orders 06/02/18 18:55 XR femur RT [XR] Routine Date of Encounter: 06/05/18 Time of Encounter: 15:42 - Discharge Diagnosis (1) Hip fracture Priority: Primary Status: Acute Qualifiers: Encounter type: initial encounter Fracture type: closed Laterality: right Qualified Code(s): S72.001A - Fracture of unspecified part of neck of right femur, initial encounter for closed fracture (2) Hypertensive renal disease with renal failure Priority: Secondary Status: Chronic (3) GERD (gastroesophageal reflux disease) Priority: Secondary Status: Chronic Qualifiers: Esophagitis presence: esophagitis presence not specified Qualified Code(s): K21.9 - Gastro-esophageal reflux disease without esophagitis Hospital course: HOSPITAL COURSE: The patient is an 82-year-old woman. We admitted her to the hospital after she had experienced a fall. She was walking with a walker, when she lost her balance. She fell and sustained a fracture of right hip. We presented her to orthopedic surgery. They proceeded with insertion of a long nail in the area of fracture site. The surgery went without complications. The patient started physical therapy. She does have a recommendation of touchdown weightbearing on the right side. She takes Flexeril for spasms in her thighs. This has been chronic problem. CONDITION AT DISCHARGE: The pain in the area of her right hip is controlled. She takes when necessary oral solution oxycodone and IV Toradol. Skin: Free of rash and discoloration. Respiratory: Normal breath sounds with no crackles and wheezes bilaterally. CV: Heart is regular with no gallop or murmur. GI: Abdomen is flat and soft with no palpable mass or visceromegaly. Neuro exam: There is no focal deficits. Normal speech, swallowing and gait. SEE DISCHARGE ORDERS/MEDICATIONS.. Discharge discussed with: patient, family, nurse, social work - Time Spent with Patient Total time spent providing and/or coordinating discharge services: Greater than 30 minutes (40 minutes..) - Discharge Medications Prescriptions: HYDROcodone/Acet 5/325 mg [[place] 5-325 mg] 1 tab PO Q4H PRN 3 Days #10 tab PRN Reason: Pain Home Medications: Cyclobenzaprine [Flexeril] 10 mg PO HS PRN 04/01/17 [History] raNITIdine HCl [Zantac] 150 mg PO BID 04/01/17 [History] amLODIPine [Norvasc] 5 mg PO DAILY #30 tab 04/10/17 [Rx] Vit C/Vit E/Lutein/Min/[place]-3 [Ocuvite Softgel] 1 cap PO DAILY 05/31/18 [History] HYDROcodone/Acet 5/325 mg [[place] 5-325 mg] 1 tab PO Q4H PRN 3 Days #10 tab 06/05/18 [Rx] Allergies/Adverse Reactions: Allergy/AdvReac Type Severity Reaction Status Date / Time No Known Allergies Allergy Verified 09/08/17 20:38 Date of admission: 05/31/18 21:19 Primary care physician: David Grissom Jr, MD Consults: 05/31/18 17:50 Consult to Orthopedic Surgery [CONS] Stat Consulting Provider: Orthopedic and Sports Medicine Reason for Consult: right hip fracture Call Completed: Yes 06/02/18 21:37 Consult to Occupational Therapy [CONS] Routine Comment: Evaluate, develop and implement POC Reason for Consult: ADL Does patient have active BEDREST order?: No Is patient medically & hemodynamically stable?: Yes Consult to Physical Therapy [CONS] Routine Comment: Evaluate, develop and implement POC Reason for Consult: Fx Does patient have active BEDREST order?: No Is patient medically & hemodynamically stable?: Yes Consult to [employer] [CONS] Routine Reason for SW Consult: dc Discharging clinician: Bryn De Leon Anticipated date of discharge: 06/05/18 - Constitutional Vitals: Temp Pulse Resp BP Pulse Ox 97.7 F 81 16 117/64 96 06/05/18 10:00 06/05/18 10:00 06/05/18 10:00 06/05/18 10:00 06/05/18 10:00 General appearance: Present: no acute distress, answers questions appropriately Exam: xx - Patient Status Disposition: Transfer SNF Condition: Good Functional capacity at discharge: uses cane/walker (touchdown weight bearing on right side..) Overall status at discharge: patient is progressing back to baseline - Discharge Instructions Follow Up With: Bonifacio Damon DO [Non-Partnered Physician] - David Grissom Jr, MD [Primary Care Provider] - Additional Instructions: FOLLOW-UP IN 3-[address] DAMON, ORTHO SURGERY. Discharge Instructions: Hip surgery Please call Dr. Damon, your Primary Care Physician, or report to the Emergency Room if you have any of the following symptoms: Nausea, vomiting, fever greater that 101.5, swelling, chest pain, shortness of breath, increased pain/redness/drainage/odor for your incision site, numbness/tingling, or any other concerning symptoms. ACTIVITY: Toe touch weight-bearing as tolerated for 6 weeks. MEDICATIONS: Upon discharge resume your home medications. Take all the medications as prescribed. Take a stool softener if taking narcotic pain medications. Stool softeners are only effective if you drink enough fluids. Drink 6-8 glass of water or fluids a day, unless this is not allowed for another health problem. Despite using stool softeners, if you haven't had a bowel movement in 3 days, please switch to a gentle laxative. Gentle laxatives are sold over the counter. You should have a bowel movement within 24 hours, if not call the office. You will be discharged from the hospital with a prescription for pain medication. You are encouraged to decrease the use of narcotic pain medication as tolerated. Should you require a refill, please call the office. Your surgeon prescribes narcotic pain medication for only 4-6 weeks after surgery. If you require pain medication beyond this time period, you may be referred to your Primary Care Physician or to the Pain Clinic for further evaluation. Plan ahead for refills on pain medication as many narcotics either need to be picked up at the office or mailed. It is best to call 48-72 hours in advance of needing a prescription refill so you don't run out of medication. To help control the post-operative pain, you may take NSAIDs (Aleve,Advil, Motrin, ibuprofen, naprosyn) or Tylenol as prescribed on the bottle in addition to the pain medication. ANTICOAGULATION (blood thinners): Continue your Aspirin, Lovenox or Coumadin as prescribed to help prevent a blood clot in the leg or in the lungs. As long as your incision remains dry and you tolerate the NSAIDs (Aleve, Advil, Motrin, Ibuprofen, Naprosyn), it is OK to use the NSAIDS while you are taking your anticoagulation medication. Should your incision start to drain, stop the NSAID and contact our office. Common symptoms of blood clot in the legs include: localized pain, swelling, calf tenderness, redness or discoloration of the skin. Blood clot in the lung symptoms include: shortness of breath, rapid pulse, sweating, and chest pain that worsens with deep breathing, coughing up blood, lightheadedness, feelings of anxiety. If you experience any of these symptoms notify your physician immediately, go to the emergency room, or if having trouble breathing, call 911. WOUND CARE: Leave the dressing on for 7 to 10days. You may change the dressing if it is saturated greater than 50%. Do not get the dressing wet at anytime. Wash your hands with antibacterial soap, rinse and dry prior to any wound care. If you have manuel the visiting nurse or rehab facility can remove the stapes 10-14 days after surgery and place steri-strips across the wound. Leave the steri-strips in place until they fall off on their own. You may let water from the shower run on top of the steri-strips. If you do not have a visiting nurse or rehab facility, you will need to return to the office at 10-14 days for the manuel to be removed. If you have itching or redness around the dressing call the office. FOLLOW-UP: Please follow up with your surgeon in the orthopedic clinic in 6 weeks from the day of surgery. If you have manuel that need to be removed, you will need to come back to the office in 10-14 days from the day of surgery. - Diet and Activity Activity: as per physical therapy (touchdown weightbearing on right side..) Diet: low fat, low cholesterol - VTE Deep Vein Thrombosis/Pulmonary Embolism Present on Admission: No
[2018-06-05 17:03] VITALS: BP 119/58
--- NOTE | 2018-06-05 17:22 | Physician Discharge Referral ---
ExtendedCare Referral Info Transfer To: [facility] Provider in Charge: Nathaniel De Leon Institutional Level of Care: Skilled - Diagnosis (1) Hip fracture Priority: Primary Status: Acute (2) Hypertensive renal disease with renal failure Priority: Secondary Status: Chronic (3) GERD (gastroesophageal reflux disease) Priority: Secondary Status: Chronic - Transfer Medications Prescriptions: HYDROcodone/Acet 5/325 mg [[place] 5-325 mg] 1 tab PO Q4H PRN 3 Days #10 tab PRN Reason: Pain Home Medications: Cyclobenzaprine [Flexeril] 10 mg PO HS PRN 04/01/17 [History] raNITIdine HCl [Zantac] 150 mg PO BID 04/01/17 [History] amLODIPine [Norvasc] 5 mg PO DAILY #30 tab 04/10/17 [Rx] Vit C/Vit E/Lutein/Min/[place]-3 [Ocuvite Softgel] 1 cap PO DAILY 05/31/18 [History] HYDROcodone/Acet 5/325 mg [[place] 5-325 mg] 1 tab PO Q4H PRN 3 Days #10 tab 06/05/18 [Rx] Allergies/Adverse Reactions: Allergy/AdvReac Type Severity Reaction Status Date / Time No Known Allergies Allergy Verified 09/08/17 20:38 - Respiratory Orders None Smoking Cessation: Smoking cessation has been advised. For more information, call the [place] Tobacco Quit Line at 9-739-XQVE-NOW. - Mobility Orders Ambulate (WITH A WALKER; TOUCHDOWN WEIGHTBEARING ON RIGHT SIDE (FOR MINIMUM OF 4 WEEKS)..) - Rehabiliation Orders Rehab Potential: Fair Rehab Orders: Evaluation for Physical Therapy - Diet Orders Regular CERTIFICATION: I certify that the transfer of the above named patient to an Extended Care Facility is necessary for the continuing treatment of the diagnosis listed. The above information is true and accurate reflection of patient's current condition. Confidential - Redisclosure prohibited without a patient's written consent.
== END 2018-06-05 18:25 | DRG 482 ==
LOC: EMEROOARM 15:42 → 3NENU 15:42 → SUATTDRO 21:19
PROVIDERS: ADMIT Internal Medicine Nephrology; ATTEND Internal Medicine

== ENCOUNTER 2019-07-18 11:40 | Inpatient (IN) ==
[2019-07-18 12:34] LABS: Basophils % 0.3 %; Eosinophils % 0.1 %; Hematocrit 39.5 % (35.3-44.9); Hemoglobin 12.9 g/dL (11.5-15.4); Immature Granulocytes % 0.3 % (0-4); Lymphocytes # 0.8 K/mcL (0.6-4.6); Lymphocytes % 5.5 %; Mean Corpuscular HGB Conc 32.7 g/dL (31.6-35.5); Mean Corpuscular Hemoglobin 29.6 pg (28.0-33.3); Mean Corpuscular Volume 90.6 fL (83.0-100.0); Mean Platelet Volume 9.4 fL (9.4-12.4); Monocytes # 1.3 K/mcL (0.0-1.3); Monocytes % 8.8 %; Neutrophils # 12.2 K/mcL (1.6-8.9); Platelet Count 280 K/mcL (140-400); Red Blood Count 4.36 M/mcL (3.82-4.97); Red Cell Distribution Width 12.5 % (11.5-14.5); White Blood Count 14.4 K/mcL (4.3-11.1)
[2019-07-18 13:04] LABS: Calcium 9.3 mg/dL (8.6-10.3); Potassium 3.8 mEq/L (3.5-5.1); Troponin I 0.03 ng/mL (< 0.04)
[2019-07-18 13:11] LABS: Thyroid Stimulating Hormone 0.217 mcIU/mL (0.340-5.600)
[2019-07-18] MEDS ORDERED: cefTRIAXone 1,000 MG in Water for inj. (sterile) 10 ML IVP ONE (13:33)
[2019-07-18 14:01] LABS: Bilirubin,Urine Negative (Negative); Blood,Urine Moderate (Negative); Clarity,Urine Cloudy (Clear); Color,Urine Yellow (Yellow); Glucose,Urine (UA) Normal (Normal); Ketones,Urine Negative (Negative); Leukocyte Esterase,Urine Large (Negative); Nitrite,Urine Positive (Negative); PH,Urine 7.5 pH Units (5.0-8.0); Protein,Urine 100 mg/dL (Neg-Trace); Specific Gravity,Urine 1.013 (1.010-1.025); Urobilinogen,Urine Normal (Normal)
[2019-07-18 14:04] LABS: Bacteria,Urine Many per hpf (None-Few); Hyaline Casts,Urine Few per lpf (None-Few); Squamous Epithelial Cell,Urine Many per lpf (None-Few); WBC,Urine TNTC per hpf (0-3)
[2019-07-18 14:21] LABS: Calcium Oxalate Crystals,Urine Present
[2019-07-18] MEDS ORDERED: Ketorolac 15 MG/ML VIAL IVP PRN (15:08)
[2019-07-18] MEDS ORDERED: Ondansetron 4 MG/2 ML VIAL IVP PRN (15:08)
[2019-07-18] MEDS ORDERED: Naloxone 0.4 MG/ML INJ IVP PRN (15:08)
[2019-07-18] MEDS: *HR* Heparin 5,000 UNIT/ML VIAL SQ SCH (20:47)
[2019-07-18] MEDS: rOPINIRole 1 MG TABLET PO SCH (20:47)
[2019-07-18] MEDS: Ringers Solution, Lactated 1,000 ML IVC SCH (20:47)
[2019-07-18] MEDS ORDERED: rOPINIRole 1 MG TABLET PO ONE (23:13)
[2019-07-19] MEDS: *HR* Heparin 5,000 UNIT/ML VIAL SQ SCH ×2 (04:38→18:08)
[2019-07-19] MEDS: Ringers Solution, Lactated 1,000 ML IVC SCH (06:50)
[2019-07-19 07:42] LABS: Basophils % 0.2 %; Eosinophils % 0.1 %; Hematocrit 34.3 % (35.3-44.9); Immature Granulocytes % 0.5 % (0-4); Lymphocytes # 0.8 K/mcL (0.6-4.6); Mean Corpuscular HGB Conc 32.7 g/dL (31.6-35.5); Mean Corpuscular Hemoglobin 29.6 pg (28.0-33.3); Mean Corpuscular Volume 90.5 fL (83.0-100.0); Mean Platelet Volume 10.5 fL (9.4-12.4); Monocytes # 0.9 K/mcL (0.0-1.3); Neutrophils # 9.3 K/mcL (1.6-8.9); Platelet Count 220 K/mcL (140-400); Red Blood Count 3.79 M/mcL (3.82-4.97); Red Cell Distribution Width 12.8 % (11.5-14.5); Segmented Neutrophils % 84.2 %; White Blood Count 11.1 K/mcL (4.3-11.1)
[2019-07-19 08:27] LABS: Hemoglobin 11.2 g/dL (11.5-15.4)
[2019-07-19] MEDS ORDERED: NON-FORMULARY MEDICATION 1 EACH EACH (Calcium Carbonate/Vitamin D3 [Oyster Shell Calcium-V PO SCH (09:00)
[2019-07-19] MEDS ORDERED: Famotidine 20 MG TABLET PO SCH ×2 (09:00→16:30)
[2019-07-19] MEDS ORDERED: cefTRIAXone 1,000 MG in 0.9 % Sodium Chloride Mini Bag 100 ML IVPB SCH ×2 (09:00→17:00)
[2019-07-19] MEDS ORDERED: amLODIPine 5 MG TABLET PO SCH (09:00)
[2019-07-19] MEDS ORDERED: NON-FORMULARY MEDICATION 1 EACH EACH (Ropinirole Hcl [Requip] 0.5 MG) PO SCH (09:00)
[2019-07-19 09:11] LABS: Calcium 8.4 mg/dL (8.6-10.3); Magnesium 1.9 mg/dL (1.6-2.6); Potassium 3.7 mEq/L (3.5-5.1)
[2019-07-19] MEDS: rOPINIRole 1 MG TABLET PO SCH ×2 (09:44→21:34)
[2019-07-19] MEDS ORDERED: Cholecalciferol (D-3) 1,000 UNIT (25MCG) TABLET PO SCH (10:15)
[2019-07-19] MEDS ORDERED: Lidocaine -MPF 2% 2 ML VIAL ONE (14:10)
[2019-07-19] MEDS ORDERED: Dexamethasone 4 MG/ML VIAL ONE (14:10)
[2019-07-19] MEDS ORDERED: Ondansetron 4 MG/2 ML VIAL ONE (14:10)
[2019-07-19] MEDS ORDERED: *HR* FentaNYL (PF) 100 MCG/2 ML VIAL ONE (14:13)
[2019-07-19] MEDS ORDERED: *HR* Propofol 200 MG/20 ML VIAL IVP ONE (14:13)
[2019-07-19] MEDS ORDERED: *HR* Promethazine 25 MG/ML VIAL IVP PRN (14:17)
[2019-07-19] MEDS ORDERED: Ringers Solution, Lactated 1,000 ML IVC SCH (14:30)
[2019-07-19] MEDS ORDERED: *HR* PHENYLEPHRINE 1,000 MCG/10 ML SYRINGE IVP ONE (15:46)
[2019-07-19] MEDS ORDERED: Naloxone 0.4 MG/ML INJ IVP PRN (16:53)
[2019-07-19] MEDS ORDERED: Ketorolac 15 MG/ML VIAL IVP PRN (16:53)
[2019-07-19] MEDS ORDERED: Ondansetron 4 MG/2 ML VIAL IVP PRN (16:53)
[2019-07-19] MEDS ORDERED: rOPINIRole 1 MG TABLET PO ONE (23:13)
[2019-07-20] MEDS ORDERED: rOPINIRole 1 MG TABLET PO ONE (01:41)
[2019-07-20 02:33] LABS: Basophils % 0.1 %; Hematocrit 34.2 % (35.3-44.9); Hemoglobin 11.1 g/dL (11.5-15.4); Immature Granulocytes % 0.2 % (0-4); Lymphocytes # 0.5 K/mcL (0.6-4.6); Lymphocytes % 5.6 %; Mean Corpuscular HGB Conc 32.5 g/dL (31.6-35.5); Mean Corpuscular Hemoglobin 29.4 pg (28.0-33.3); Mean Corpuscular Volume 90.5 fL (83.0-100.0); Mean Platelet Volume 9.4 fL (9.4-12.4); Monocytes # 0.3 K/mcL (0.0-1.3); Neutrophils # 7.9 K/mcL (1.6-8.9); Platelet Count 245 K/mcL (140-400); Red Blood Count 3.78 M/mcL (3.82-4.97); Red Cell Distribution Width 12.7 % (11.5-14.5); Segmented Neutrophils % 91.1 %; White Blood Count 8.7 K/mcL (4.3-11.1)
[2019-07-20 02:51] LABS: BUN/Creatinine Ratio 22 (6-26); Blood Urea Nitrogen 22 mg/dL (8-23); Calcium 8.3 mg/dL (8.6-10.3); Carbon Dioxide 24 mEq/L (23-29); Chloride 106 mEq/L (98-107); Glucose 149 mg/dL (70-105); Osmolality,Calculated 288 (280-300); Potassium 4.3 mEq/L (3.5-5.1); Sodium 136 mEq/L (136-145); eGFR For African Americans > 60 (> 60); eGFR For Non-African Americans 52 (> 60)
[2019-07-20] MEDS: *HR* Heparin 5,000 UNIT/ML VIAL SQ SCH ×2 (05:14→16:22)
[2019-07-20] MEDS: Famotidine 20 MG TABLET PO SCH ×2 (07:49→16:22)
[2019-07-20] MEDS: Cholecalciferol (D-3) 1,000 UNIT (25MCG) TABLET PO SCH (07:49)
[2019-07-20] MEDS: amLODIPine 5 MG TABLET PO SCH (07:49)
[2019-07-20] MEDS: rOPINIRole 1 MG TABLET PO SCH ×3 (07:50→21:42)
[2019-07-20] MEDS ORDERED: cefTRIAXone 1,000 MG in 0.9 % Sodium Chloride Mini Bag 100 ML IVPB SCH (09:00)
[2019-07-21] MEDS: *HR* Heparin 5,000 UNIT/ML VIAL SQ SCH (05:28)
[2019-07-21] MEDS: Famotidine 20 MG TABLET PO SCH (08:34)
[2019-07-21] MEDS: amLODIPine 5 MG TABLET PO SCH (08:35)
[2019-07-21] MEDS: rOPINIRole 1 MG TABLET PO SCH (08:35)
[2019-07-21] MEDS: Cholecalciferol (D-3) 1,000 UNIT (25MCG) TABLET PO SCH (08:35)
[2019-07-21 10:57] VITALS: BP 113/66
== END 2019-07-21 12:00 | DRG 659 ==
LOC: 3NENU 11:40 → EMEROOARM 11:40 → SUATTDRO 18:18 → 3NENU 19:37
PROVIDERS: ADMIT Internal Medicine; ATTEND Internal Medicine

== ENCOUNTER 2021-04-30 15:58 | Inpatient (IN) ==
[2021-04-30] MEDS ORDERED: cefTRIAXone 1,000 MG in Water for inj. (sterile) 10 ML IVP ONE (16:12)
[2021-04-30] MEDS ORDERED: Ondansetron 4 MG/2 ML VIAL IVP ONE (16:12)
[2021-04-30] MEDS ORDERED: *HR* FentaNYL (PF) 100 MCG/2 ML VIAL IVP ONE (16:13)
[2021-04-30] MEDS: 0.9 % Sodium Chloride 1,000 ML IVC SCH (16:30)
[2021-04-30 16:48] LABS: Basophils % 0.6 %; Eosinophils # 0.1 K/mcL (0.0-0.6); Eosinophils % 1.3 %; Hematocrit 38.1 % (35.3-44.9); Hemoglobin 11.7 g/dL (11.5-15.4); Immature Granulocytes % 0.4 % (0-4); Lymphocytes # 1.2 K/mcL (0.6-4.6); Lymphocytes % 22.1 %; Mean Corpuscular HGB Conc 30.7 g/dL (31.6-35.5); Mean Platelet Volume 9.3 fL (9.4-12.4); Monocytes # 0.4 K/mcL (0.0-1.3); Monocytes % 7.3 %; Neutrophils # 3.6 K/mcL (1.6-8.9); Platelet Count 210 K/mcL (140-400); Red Blood Count 4.33 M/mcL (3.82-4.97); Red Cell Distribution Width 13.7 % (11.5-14.5); Segmented Neutrophils % 68.3 %; White Blood Count 5.2 K/mcL (4.3-11.1)
[2021-04-30 17:14] LABS: Albumin/Globulin Ratio 1.3 (1.1-2.2); Bilirubin,Direct 0.1 mg/dL (0.0-0.2); Bilirubin,Indirect 0.5 mg/dL (0.0-1.0); Bilirubin,Total 0.6 mg/dL (0.3-1.0); Calcium 8.7 mg/dL (8.6-10.3); Globulin 3.1 g/dL (2.4-3.5); Potassium 3.6 mEq/L (3.5-5.1); Total Protein 7.1 g/dL (6.4-8.9)
[2021-04-30 18:43] LABS: Adenovirus Not Detected (Not Detect); Bordetella Pertussis Not Detected (Not Detect); Chlamydophila pneumoniae Not Detected (Not Detect); Coronavirus 229E Not Detected (Not Detect); Coronavirus HKU1 Not Detected (Not Detect); Coronavirus NL63 Not Detected (Not Detect); Coronavirus OC43 Not Detected (Not Detect); Human Metapneumovirus Not Detected (Not Detect); Human Rhinovirus/Enterovirus Not Detected (Not Detect); Influenza A Subtype 2009 H1 Not Detected (Not Detect); Influenza B Not Detected (Not Detect); Mycoplasma pneumoniae Not Detected (Not Detect); Parainfluenza Virus 1 Not Detected (Not Detect); Parainfluenza Virus 2 Not Detected (Not Detect); Parainfluenza Virus 3 Not Detected (Not Detect); Parainfluenza Virus 4 Not Detected (Not Detect); Respiratory Syncytial Virus Not Detected (Not Detect); SARS-CoV-2 Not Detected (Not Detect)
[2021-04-30 20:37] LABS: Bacteria,Urine Few per hpf (None-Few); Bilirubin,Urine Negative (Negative); Blood,Urine Small (Negative); Clarity,Urine Clear (Clear); Color,Urine Colorless (Yellow); Glucose,Urine (UA) Normal (Normal); Ketones,Urine Negative (Negative); Leukocyte Esterase,Urine Large (Negative); Nitrite,Urine Negative (Negative); PH,Urine 6.5 pH Units (5.0-8.0); Protein,Urine Negative (Neg-Trace); RBC,Urine 0-3 per hpf (0-3); Specific Gravity,Urine 1.005 (1.010-1.025); Squamous Epithelial Cell,Urine Few per hpf (None-Few); Urobilinogen,Urine Normal (Normal); WBC,Urine 15-30 per hpf (0-3)
[2021-04-30] MEDS ORDERED: Acetaminophen 325 MG TABLET PO PRN (23:59)
[2021-04-30] MEDS ORDERED: Ondansetron 4 MG/2 ML VIAL IVP PRN (23:59)
[2021-04-30] MEDS ORDERED: Naloxone 0.4 MG/ML INJ IVP PRN (23:59)
[2021-05-01] MEDS: rOPINIRole 1 MG TABLET PO SCH ×4 (01:42→20:41)
[2021-05-01] MEDS ORDERED: hydrALAZINE 10 MG TABLET PO PRN ×2 (01:51→13:15)
[2021-05-01] MEDS: 0.9 % Sodium Chloride 1,000 ML IVC SCH ×3 (02:01→21:34)
[2021-05-01 02:25] LABS: Hematocrit 36.4 % (35.3-44.9); Hemoglobin 11.2 g/dL (11.5-15.4); Mean Corpuscular HGB Conc 30.8 g/dL (31.6-35.5); Mean Corpuscular Hemoglobin 27.5 pg (28.0-33.3); Mean Corpuscular Volume 89.2 fL (83.0-100.0); Mean Platelet Volume 9.4 fL (9.4-12.4); Platelet Count 199 K/mcL (140-400); Red Blood Count 4.08 M/mcL (3.82-4.97); Red Cell Distribution Width 13.5 % (11.5-14.5); White Blood Count 4.9 K/mcL (4.3-11.1)
[2021-05-01 02:35] LABS: Calcium 8.4 mg/dL (8.6-10.3); Chol/HDL Ratio 3.6 (0-4.9); Magnesium 2.1 mg/dL (1.6-2.6); Potassium 3.8 mEq/L (3.5-5.1)
[2021-05-01] MEDS: Piperacillin/Tazobactam 3.375 GM in 0.9 % Sodium Chloride Mini Bag 100 ML IVPB SCH ×3 (03:12→17:42)
[2021-05-01 07:05] LABS: Estimated Average Glucose 140 mg/dl; Hemoglobin A1C 6.5 %
[2021-05-01] MEDS ORDERED: *HR* OxyCODONE Immed Rel 5 MG TABLET PO PRN (10:23)
[2021-05-01] MEDS ORDERED: *HR* FentaNYL (PF) 100 MCG/2 ML VIAL IVP PRN (10:23)
[2021-05-01] MEDS ORDERED: Ondansetron 4 MG/2 ML VIAL IVP PRN ×2 (10:23→13:15)
[2021-05-01] MEDS ORDERED: Albuterol 2.5 MG/3 ML NEBULIZER IH PRN (10:23)
[2021-05-01] MEDS ORDERED: Lidocaine -MPF 2% 5 ML VIAL ONE (10:24)
[2021-05-01] MEDS ORDERED: *HR* Propofol 200 MG/20 ML VIAL IVP ONE (10:25)
[2021-05-01] MEDS ORDERED: Ondansetron 4 MG/2 ML VIAL ONE (10:33)
[2021-05-01] MEDS ORDERED: Isovue-300 50ML VIAL ONE (11:02)
[2021-05-01] MEDS ORDERED: Acetaminophen IV 1,000 MG/100 ML BAG IVPB ONE ×2 (11:46→11:48)
[2021-05-01] MEDS ORDERED: Naloxone 0.4 MG/ML INJ IVP PRN (13:15)
[2021-05-01] MEDS ORDERED: Acetaminophen 325 MG TABLET PO PRN (13:15)
[2021-05-01] MEDS ORDERED: Famotidine 20 MG TABLET PO SCH ×2 (21:00)
[2021-05-02] MEDS: Piperacillin/Tazobactam 3.375 GM in 0.9 % Sodium Chloride Mini Bag 100 ML IVPB SCH ×3 (02:18→17:35)
[2021-05-02 03:20] LABS: Hematocrit 33.7 % (35.3-44.9); Hemoglobin 10.9 g/dL (11.5-15.4); Mean Corpuscular HGB Conc 32.3 g/dL (31.6-35.5); Mean Corpuscular Hemoglobin 27.9 pg (28.0-33.3); Mean Corpuscular Volume 86.2 fL (83.0-100.0); Mean Platelet Volume 10.1 fL (9.4-12.4); Platelet Count 226 K/mcL (140-400); Red Blood Count 3.91 M/mcL (3.82-4.97); Red Cell Distribution Width 13.5 % (11.5-14.5); White Blood Count 6.8 K/mcL (4.3-11.1)
[2021-05-02 03:22] LABS: Calcium 8.7 mg/dL (8.6-10.3); Potassium 4.1 mEq/L (3.5-5.1)
[2021-05-02] MEDS: 0.9 % Sodium Chloride 1,000 ML IVC SCH ×2 (04:47→11:43)
[2021-05-02] MEDS: rOPINIRole 1 MG TABLET PO SCH ×4 (09:48→20:28)
[2021-05-03] MEDS: Piperacillin/Tazobactam 3.375 GM in 0.9 % Sodium Chloride Mini Bag 100 ML IVPB SCH ×2 (02:55→09:53)
[2021-05-03] MEDS: 0.9 % Sodium Chloride 1,000 ML IVC SCH ×3 (03:00→18:49)
[2021-05-03 06:53] LABS: Hematocrit 35.8 % (35.3-44.9); Mean Corpuscular HGB Conc 30.7 g/dL (31.6-35.5); Mean Corpuscular Hemoglobin 26.8 pg (28.0-33.3); Mean Corpuscular Volume 87.3 fL (83.0-100.0); Mean Platelet Volume 9.5 fL (9.4-12.4); Platelet Count 227 K/mcL (140-400); Red Cell Distribution Width 13.7 % (11.5-14.5)
[2021-05-03 07:07] LABS: Calcium 8.8 mg/dL (8.6-10.3); Potassium 3.6 mEq/L (3.5-5.1)
[2021-05-03 07:09] LABS: Albumin 3.9 g/dL (3.5-5.7); Magnesium 1.9 mg/dL (1.6-2.6); Phosphorous 2.4 mg/dL (2.7-4.5)
[2021-05-03] MEDS: rOPINIRole 1 MG TABLET PO SCH ×4 (09:57→20:57)
[2021-05-03] MEDS: amLODIPine 5 MG TABLET PO SCH (12:29)
[2021-05-04 03:30] LABS: Hematocrit 34.1 % (35.3-44.9); Hemoglobin 10.8 g/dL (11.5-15.4); Mean Corpuscular HGB Conc 31.7 g/dL (31.6-35.5); Mean Corpuscular Hemoglobin 26.7 pg (28.0-33.3); Mean Corpuscular Volume 84.2 fL (83.0-100.0); Mean Platelet Volume 9.6 fL (9.4-12.4); Platelet Count 236 K/mcL (140-400); Red Blood Count 4.05 M/mcL (3.82-4.97); Red Cell Distribution Width 13.3 % (11.5-14.5)
[2021-05-04 03:50] LABS: BUN/Creatinine Ratio 14 (6-26); Blood Urea Nitrogen 12 mg/dL (8-23); Calcium 8.5 mg/dL (8.6-10.3); Carbon Dioxide 19 mEq/L (23-29); Chloride 106 mEq/L (98-107); Creatine Kinase 684 Units/L (30-223); Glucose 119 mg/dL (70-105); Osmolality,Calculated 285 (280-300); Potassium 3.1 mEq/L (3.5-5.1); Sodium 137 mEq/L (136-145); eGFR For African Americans > 60 (> 60); eGFR For Non-African Americans > 60 (> 60)
[2021-05-04] MEDS: 0.9 % Sodium Chloride 1,000 ML IVC SCH (05:47)
[2021-05-04] MEDS: amLODIPine 5 MG TABLET PO SCH (07:24)
[2021-05-04] MEDS: rOPINIRole 1 MG TABLET PO SCH ×4 (07:24→21:10)
[2021-05-04] MEDS ORDERED: 0.9 % Sodium Chloride 1,000 ML IVC SCH (10:45)
[2021-05-04] MEDS: DAPTOmycin 350 MG in 0.9 % Sodium Chloride 100 ML IVPB SCH (16:57)
[2021-05-05 03:30] LABS: Hematocrit 33.8 % (35.3-44.9); Hemoglobin 11.2 g/dL (11.5-15.4); Mean Corpuscular HGB Conc 33.1 g/dL (31.6-35.5); Mean Corpuscular Hemoglobin 27.7 pg (28.0-33.3); Mean Corpuscular Volume 83.5 fL (83.0-100.0); Mean Platelet Volume 9.9 fL (9.4-12.4); Platelet Count 266 K/mcL (140-400); Red Blood Count 4.05 M/mcL (3.82-4.97); Red Cell Distribution Width 13.3 % (11.5-14.5); White Blood Count 7.6 K/mcL (4.3-11.1)
[2021-05-05 03:56] LABS: BUN/Creatinine Ratio 11 (6-26); Blood Urea Nitrogen 10 mg/dL (8-23); Calcium 10.9 mg/dL (8.6-10.3); Carbon Dioxide 23 mEq/L (23-29); Chloride 106 mEq/L (98-107); Creatine Kinase 174 Units/L (30-223); Glucose 136 mg/dL (70-105); Osmolality,Calculated 285 (280-300); Potassium 2.9 mEq/L (3.5-5.1); Sodium 137 mEq/L (136-145); eGFR For African Americans > 60 (> 60); eGFR For Non-African Americans > 60 (> 60)
[2021-05-05] MEDS: rOPINIRole 1 MG TABLET PO SCH ×4 (09:47→21:02)
[2021-05-05] MEDS: amLODIPine 5 MG TABLET PO SCH (09:47)
[2021-05-05 17:15] LABS: BUN/Creatinine Ratio 13 (6-26); Blood Urea Nitrogen 13 mg/dL (8-23); Calcium 10.5 mg/dL (8.6-10.3); Carbon Dioxide 24 mEq/L (23-29); Chloride 103 mEq/L (98-107); Glucose 132 mg/dL (70-105); Osmolality,Calculated 282 (280-300); Potassium 3.1 mEq/L (3.5-5.1); Sodium 135 mEq/L (136-145); eGFR For African Americans > 60 (> 60); eGFR For Non-African Americans 52 (> 60)
[2021-05-05] MEDS ORDERED: 0.9 % Sodium Chloride 500 ML IVC SCH (18:30)
[2021-05-05] MEDS: DAPTOmycin 350 MG in 0.9 % Sodium Chloride 100 ML IVPB SCH (18:43)
[2021-05-06 05:27] LABS: Hematocrit 34.3 % (35.3-44.9); Mean Corpuscular HGB Conc 32.1 g/dL (31.6-35.5); Mean Corpuscular Hemoglobin 26.9 pg (28.0-33.3); Mean Corpuscular Volume 83.9 fL (83.0-100.0); Mean Platelet Volume 9.9 fL (9.4-12.4); Platelet Count 311 K/mcL (140-400); Red Blood Count 4.09 M/mcL (3.82-4.97); Red Cell Distribution Width 13.3 % (11.5-14.5); White Blood Count 7.7 K/mcL (4.3-11.1)
[2021-05-06 05:46] LABS: BUN/Creatinine Ratio 12 (6-26); Blood Urea Nitrogen 12 mg/dL (8-23); Calcium 10.7 mg/dL (8.6-10.3); Carbon Dioxide 23 mEq/L (23-29); Chloride 106 mEq/L (98-107); Glucose 119 mg/dL (70-105); Osmolality,Calculated 285 (280-300); Potassium 3.2 mEq/L (3.5-5.1); Sodium 137 mEq/L (136-145); eGFR For African Americans > 60 (> 60); eGFR For Non-African Americans 50 (> 60)
[2021-05-06] MEDS: rOPINIRole 1 MG TABLET PO SCH ×4 (12:38→19:43)
[2021-05-06] MEDS: amLODIPine 5 MG TABLET PO SCH (12:41)
[2021-05-06] MEDS: DAPTOmycin 350 MG in 0.9 % Sodium Chloride 100 ML IVPB SCH (17:45)
[2021-05-06 18:36] VITALS: BP 145/84; PULSE 102; TEMP 98.1; O2SAT 95
[2021-05-06] MEDS ORDERED: FLU Vac QV 21-22 (6Month+)/PF 0.5 ML SYRINGE IM ONE (18:36)
[2021-05-06 18:44] LABS: Calculi Mass 90 mg
[2021-05-06] MEDS ORDERED: Gabapentin 100 MG CAPSULE PO SCH (21:00)
== END 2021-05-06 23:00 | disposition other institution (70) | DRG 660 ==
LOC: EMEROOARM 15:58 → 3ANU 15:58 → SUATTDRO 05-01 17:25
PROVIDERS: ADMIT Student in an Organized Health Care Education/Training Program; ATTEND Nurse Practitioner

== ENCOUNTER 2021-09-28 12:35 | Inpatient (IN) ==
[2021-09-28] MEDS ORDERED: cefTRIAXone 1,000 MG in 0.9 % Sodium Chloride 10 ML IVP ONE (13:01)
[2021-09-28 13:37] LABS: Basophils % 0.3 %; Eosinophils % 0.1 %; Hematocrit 36.5 % (35.3-44.9); Hemoglobin 11.2 g/dL (11.5-15.4); Immature Granulocytes % 0.6 % (0-4); Lymphocytes # 1.2 K/mcL (0.6-4.6); Lymphocytes % 7.9 %; Mean Corpuscular HGB Conc 30.7 g/dL (31.6-35.5); Mean Corpuscular Hemoglobin 25.7 pg (28.0-33.3); Mean Corpuscular Volume 83.9 fL (83.0-100.0); Mean Platelet Volume 9.8 fL (9.4-12.4); Monocytes # 0.8 K/mcL (0.0-1.3); Monocytes % 5.3 %; Neutrophils # 13.3 K/mcL (1.6-8.9); Platelet Count 272 K/mcL (140-400); Red Blood Count 4.35 M/mcL (3.82-4.97); Red Cell Distribution Width 15.8 % (11.5-14.5); Segmented Neutrophils % 85.8 %; White Blood Count 15.5 K/mcL (4.3-11.1)
[2021-09-28 13:51] LABS: INR 1.4; Prothrombin Time 15.6 Seconds (9.4-12.1)
[2021-09-28 13:53] LABS: Activated Partial Thrombo Time 26.4 Seconds (26.0-36.0)
[2021-09-28 14:09] LABS: Albumin 3.7 g/dL (3.5-5.7); Albumin/Globulin Ratio 1.2 (1.1-2.2); Bilirubin,Direct 0.1 mg/dL (0.0-0.2); Bilirubin,Indirect 0.9 mg/dL (0.0-1.0); Calcium 9.5 mg/dL (8.6-10.3); Globulin 3.1 g/dL (2.4-3.5); Magnesium 1.8 mg/dL (1.6-2.6); Phosphorous 3.5 mg/dL (2.7-4.5); Potassium 3.6 mEq/L (3.5-5.1); Total Protein 6.8 g/dL (6.4-8.9); Troponin I 0.05 ng/mL (< 0.04)
[2021-09-28 14:32] LABS: Bacteria,Urine Few per hpf (None-Few); Bilirubin,Urine Negative (Negative); Blood,Urine Moderate (Negative); Budding Yeast,Urine Many per hpf (None Seen); Clarity,Urine Ex.Turbid (Clear); Color,Urine Yellow (Yellow); Glucose,Urine (UA) Normal (Normal); Ketones,Urine Negative (Negative); Leukocyte Esterase,Urine Large (Negative); Mucus,Urine Few per lpf (None-Few); Nitrite,Urine Negative (Negative); Protein,Urine 100 mg/dL (Neg-Trace); Specific Gravity,Urine 1.013 (1.010-1.025); Squamous Epithelial Cell,Urine Moderate per hpf (None-Few); Urobilinogen,Urine Normal (Normal); WBC,Urine TNTC per hpf (0-3)
[2021-09-28 14:33] LABS: Calcium Oxalate Crystals,Urine Present per hpf
[2021-09-28] MEDS ORDERED: Naloxone 0.4 MG/ML INJ IVP PRN (16:11)
[2021-09-28] MEDS ORDERED: Ondansetron 4 MG/2 ML VIAL IVP PRN (16:11)
[2021-09-28] MEDS ORDERED: Acetaminophen 325 MG TABLET PO PRN (16:11)
[2021-09-28] MEDS: 0.9 % Sodium Chloride 1,000 ML IVC SCH (18:48)
[2021-09-29 02:11] LABS: Basophils % 0.2 %; Eosinophils % 0.1 %; Hematocrit 36.5 % (35.3-44.9); Immature Granulocytes % 0.3 % (0-4); Lymphocytes # 0.9 K/mcL (0.6-4.6); Lymphocytes % 6.3 %; Mean Corpuscular HGB Conc 30.1 g/dL (31.6-35.5); Mean Corpuscular Hemoglobin 25.8 pg (28.0-33.3); Mean Corpuscular Volume 85.5 fL (83.0-100.0); Monocytes # 0.7 K/mcL (0.0-1.3); Monocytes % 4.6 %; Platelet Count 254 K/mcL (140-400); Red Blood Count 4.27 M/mcL (3.82-4.97); Red Cell Distribution Width 15.9 % (11.5-14.5); Segmented Neutrophils % 88.5 %; White Blood Count 14.7 K/mcL (4.3-11.1)
[2021-09-29 02:19] LABS: Estimated Average Glucose 137 mg/dl; Hemoglobin A1C 6.4 %
[2021-09-29 02:31] LABS: Calcium 8.8 mg/dL (8.6-10.3); Chol/HDL Ratio 3.4 (0-4.9); Magnesium 1.8 mg/dL (1.6-2.6); Phosphorous 3.4 mg/dL (2.7-4.5); Potassium 3.6 mEq/L (3.5-5.1)
[2021-09-29 02:32] LABS: Troponin I 0.12 ng/mL (< 0.04)
[2021-09-29 03:07] LABS: Thyroid Stimulating Hormone 0.447 mcIU/mL (0.340-5.600)
[2021-09-29 07:03] LABS: A.calcoaceticus-baumannii cplx Not Detected (Not Detect); Bacteroides fragilis by PCR Not Detected (Not Detect); CTX-M ESBL Gene Not Detected (Not Detect); Candida albicans by PCR Not Detected (Not Detect); Candida auris by PCR Not Detected (Not Detect); Candida glabrata by PCR Not Detected (Not Detect); Candida krusei by PCR Not Detected (Not Detect); Candida parapsilosis by PCR Not Detected (Not Detect); Candida tropicalis by PCR Not Detected (Not Detect); Crypto. neoformans/gattii PCR Not Detected (Not Detect); Enterobacter cloacae Cmplx PCR Not Detected (Not Detect); Enterobacterales by PCR Not Detected (Not Detect); Enterococcus faecalis by PCR Not Detected (Not Detect); Enterococcus faecium by PCR Not Detected (Not Detect); Escherichia coli by PCR DETECTED (Not Detect); IMP Carbapenem-Resist Gene Not Detected (Not Detect); Klebs. pneumoniae group by PCR Not Detected (Not Detect); Klebsiella aerogenes by PCR Not Detected (Not Detect); Klebsiella oxytoca by PCR Not Detected (Not Detect); NDM Carbapenem-Resist Gene Not Detected (Not Detect); OXA-48-like Carbap-Resist Gene Not Detected (Not Detect); Proteus by PCR Not Detected (Not Detect); Pseudomonas aeruginosa by PCR Not Detected (Not Detect); Salmonella species by PCR Not Detected (Not Detect); Serratia marcescens by PCR Not Detected (Not Detect); Staph epidermidis by PCR Not Detected (Not Detect); Staph lugdunensis by PCR Not Detected (Not Detect); Staphylococcus aureus by PCR Not Detected (Not Detect); Staphylococcus by PCR Not Detected (Not Detect); Stenotrophomonas maltophilia Not Detected (Not Detect); Streptococcus agalactiae(B)PCR Not Detected (Not Detect); Streptococcus by PCR Not Detected (Not Detect); Streptococcus pneumoniae PCR Not Detected (Not Detect); Streptococcus pyogenes (A) PCR Not Detected (Not Detect); VIM Carbapenem-Resist Gene Not Detected (Not Detect); blaKPC Carbapenem-Resist Gene Not Detected (Not Detect); mcr-1 Colistin-Resist Gene Not Detected (Not Detect); mecA/C & MREJ (MRSA) Gene Not Detected (Not Detect); mecA/C Methicillin-Resist Gene Not Detected (Not Detect); vanA/B Vancomycin-Resist Genes Not Detected (Not Detect)
[2021-09-29] MEDS ORDERED: Perflutren Lipid Microsphere 1.3 ML in 0.9 % Sodium Chloride 8.7 ML IVP PRN ×2 (07:46→21:27)
[2021-09-29] MEDS ORDERED: Aspirin Enteric Coated 81 MG Tablet PO SCH (09:00)
[2021-09-29] MEDS ORDERED: cefTRIAXone 2,000 MG in 0.9 % Sodium Chloride 20 ML IVP SCH (10:00)
[2021-09-29] MEDS: rOPINIRole 1 MG TABLET PO SCH ×4 (10:22→21:29)
[2021-09-29] MEDS ORDERED: cefTRIAXone 1,000 MG in 0.9 % Sodium Chloride 10 ML IVP SCH (14:00)
[2021-09-29] MEDS ORDERED: Lidocaine -MPF 2% 2 ML VIAL ONE (19:05)
[2021-09-29] MEDS ORDERED: Ondansetron 4 MG/2 ML VIAL ONE (19:05)
[2021-09-29] MEDS ORDERED: *HR* Propofol 200 MG/20 ML VIAL IVP ONE (19:06)
[2021-09-29] MEDS ORDERED: *HR* FentaNYL (PF) 100 MCG/2 ML VIAL ONE (19:07)
[2021-09-29] MEDS ORDERED: *HR* Vasopressin 20 UNIT/ML VIAL ONE (19:33)
[2021-09-29] MEDS ORDERED: Albumin Human 5% 0 GM/0 ML IV.SOLN ONE (19:33)
[2021-09-29] MEDS ORDERED: EPHEDrine 50 MG/ML VIAL ONE (19:35)
[2021-09-29] MEDS ORDERED: *HR* FentaNYL (PF) 100 MCG/2 ML VIAL IVP PRN ×2 (19:56→21:27)
[2021-09-29] MEDS ORDERED: Acetaminophen IV 1,000 MG/100 ML BAG IVPB ONE ×2 (20:03→20:15)
[2021-09-29] MEDS ORDERED: Estrogens, Conjugated CREAM 30 GM TUBE TP SCH (21:00)
[2021-09-29] MEDS ORDERED: 0.9 % Sodium Chloride 1,000 ML IVC SCH (21:00)
[2021-09-29] MEDS ORDERED: Famotidine 20 MG TABLET PO SCH (21:00)
[2021-09-29] MEDS ORDERED: Naloxone 0.4 MG/ML INJ IVP PRN (21:27)
[2021-09-29] MEDS ORDERED: Ondansetron 4 MG/2 ML VIAL IVP PRN (21:27)
[2021-09-29] MEDS ORDERED: Acetaminophen 325 MG TABLET PO PRN (21:27)
[2021-09-29] MEDS: 0.9 % Sodium Chloride 1,000 ML IVC SCH (21:28)
[2021-09-30] MEDS: 0.9 % Sodium Chloride 1,000 ML IVC SCH ×2 (00:52→06:15)
[2021-09-30 02:59] LABS: Magnesium 1.8 mg/dL (1.6-2.6)
[2021-09-30] MEDS: Aspirin Enteric Coated 81 MG Tablet PO SCH (07:46)
[2021-09-30] MEDS: rOPINIRole 1 MG TABLET PO SCH ×4 (07:46→21:21)
[2021-09-30] MEDS: cefTRIAXone 2,000 MG in 0.9 % Sodium Chloride 20 ML IVP SCH (07:47)
[2021-09-30] MEDS: Famotidine 20 MG TABLET PO SCH (21:21)
[2021-10-01 06:59] LABS: Basophils % 0.3 %; Eosinophils # 0.1 K/mcL (0.0-0.6); Eosinophils % 0.7 %; Hematocrit 30.7 % (35.3-44.9); Immature Granulocytes % 0.4 % (0-4); Lymphocytes # 1.3 K/mcL (0.6-4.6); Mean Corpuscular Hemoglobin 25.8 pg (28.0-33.3); Mean Corpuscular Volume 86.2 fL (83.0-100.0); Mean Platelet Volume 10.4 fL (9.4-12.4); Monocytes # 0.6 K/mcL (0.0-1.3); Monocytes % 8.5 %; Neutrophils # 5.1 K/mcL (1.6-8.9); Platelet Count 236 K/mcL (140-400); Red Blood Count 3.56 M/mcL (3.82-4.97); Segmented Neutrophils % 72.1 %
[2021-10-01 07:31] LABS: Calcium 8.5 mg/dL (8.6-10.3); Magnesium 1.9 mg/dL (1.6-2.6); Potassium 3.2 mEq/L (3.5-5.1)
[2021-10-01 08:35] LABS: Hemoglobin 9.2 g/dL (11.5-15.4); White Blood Count 7.1 K/mcL (4.3-11.1)
[2021-10-01] MEDS: Aspirin Enteric Coated 81 MG Tablet PO SCH (09:04)
[2021-10-01] MEDS: rOPINIRole 1 MG TABLET PO SCH ×4 (09:04→20:05)
[2021-10-01] MEDS: cefTRIAXone 2,000 MG in 0.9 % Sodium Chloride 20 ML IVP SCH (13:25)
[2021-10-01] MEDS ORDERED: Iron Sucrose Complex 200 MG in 0.9 % Sodium Chloride 100 ML IVPB ONE (15:44)
[2021-10-01] MEDS: Famotidine 20 MG TABLET PO SCH (20:05)
[2021-10-01] MEDS: Estrogens, Conjugated CREAM 30 GM TUBE TP SCH (20:05)
[2021-10-02] MEDS: Estrogens, Conjugated CREAM 30 GM TUBE TP SCH (07:15)
[2021-10-02] MEDS ORDERED: amLODIPine 5 MG TABLET PO SCH (09:00)
[2021-10-02] MEDS ORDERED: levoFLOXacin 250 MG TABLET PO SCH (09:00)
[2021-10-02] MEDS: rOPINIRole 1 MG TABLET PO SCH ×2 (09:02→12:37)
[2021-10-02] MEDS: Aspirin Enteric Coated 81 MG Tablet PO SCH (09:02)
[2021-10-02 09:27] LABS: Basophils % 0.7 %; Eosinophils # 0.2 K/mcL (0.0-0.6); Eosinophils % 3.4 %; Hematocrit 38.2 % (35.3-44.9); Immature Granulocytes % 0.6 % (0-4); Lymphocytes # 1.1 K/mcL (0.6-4.6); Lymphocytes % 20.2 %; Mean Corpuscular HGB Conc 29.6 g/dL (31.6-35.5); Mean Corpuscular Hemoglobin 25.4 pg (28.0-33.3); Mean Corpuscular Volume 85.8 fL (83.0-100.0); Mean Platelet Volume 10.3 fL (9.4-12.4); Monocytes # 0.5 K/mcL (0.0-1.3); Monocytes % 9.5 %; Neutrophils # 3.5 K/mcL (1.6-8.9); Platelet Count 291 K/mcL (140-400); Red Blood Count 4.45 M/mcL (3.82-4.97); Red Cell Distribution Width 15.9 % (11.5-14.5); Segmented Neutrophils % 65.6 %; White Blood Count 5.4 K/mcL (4.3-11.1)
[2021-10-02 09:42] LABS: Hemoglobin 11.3 g/dL (11.5-15.4)
[2021-10-02 09:46] LABS: Calcium 9.8 mg/dL (8.6-10.3); Magnesium 1.9 mg/dL (1.6-2.6); Potassium 3.8 mEq/L (3.5-5.1)
[2021-10-02 10:44] VITALS: BP 148/73; PULSE 69; TEMP 98.6; O2SAT 96
== END 2021-10-02 16:35 | disposition home or self-care (01) | DRG 853 ==
LOC: 3ANU 12:35 → EMEROOARM 12:35 → SUATTDRO 15:23 → 3ANU 16:47 → SUATTDRO 09-29 15:44
PROVIDERS: ADMIT Internal Medicine; ATTEND Pharmacist

== ENCOUNTER 2022-01-22 12:15 | Inpatient (IN) ==
[2022-01-22] MEDS ORDERED: Ipratropium/Albuterol Neb 3 ML IH ONE (12:57)
[2022-01-22] MEDS ORDERED: Albuterol 2.5 MG/3 ML NEBULIZER IH ONE (12:57)
[2022-01-22] MEDS ORDERED: methylPREDNISolone 125 MG/2 ML VIAL IVP ONE (12:57)
[2022-01-22 14:32] LABS: Basophils % 0.2 %; Eosinophils % 0.3 %; Hematocrit 38.2 % (35.3-44.9); Hemoglobin 11.7 g/dL (11.5-15.4); Immature Granulocytes % 0.3 % (0-4); Lymphocytes % 8.2 %; Mean Corpuscular HGB Conc 30.6 g/dL (31.6-35.5); Mean Corpuscular Hemoglobin 27.9 pg (28.0-33.3); Mean Platelet Volume 10.1 fL (9.4-12.4); Monocytes # 1.1 K/mcL (0.0-1.3); Monocytes % 9.2 %; Neutrophils # 9.6 K/mcL (1.6-8.9); Platelet Count 252 K/mcL (140-400); Red Cell Distribution Width 17.2 % (11.5-14.5); Segmented Neutrophils % 81.8 %; White Blood Count 11.8 K/mcL (4.3-11.1)
[2022-01-22] MEDS ORDERED: Azithromycin 250 MG TABLET PO ONE (14:36)
[2022-01-22 14:39] LABS: Bacteria,Urine Few per hpf (None-Few); Bilirubin,Urine Negative (Negative); Blood,Urine Small (Negative); Clarity,Urine Turbid (Clear); Color,Urine Light-Yellow (Yellow); Glucose,Urine (UA) 70 mg/dL (Normal); Hyaline Casts,Urine Few per lpf (None Seen); Ketones,Urine Negative (Negative); Leukocyte Esterase,Urine Large (Negative); Mucus,Urine Few per lpf (None-Few); Nitrite,Urine Positive (Negative); Protein,Urine 50 mg/dL (Neg-Trace); Specific Gravity,Urine 1.014 (1.010-1.025); Squamous Epithelial Cell,Urine Few per hpf (None-Few); Urobilinogen,Urine Normal (Normal); WBC,Urine 50-100 per hpf (0-3)
[2022-01-22] MEDS ORDERED: cefTRIAXone 1,000 MG in Water for inj. (sterile) 10 ML IVP ONE (14:45)
[2022-01-22 14:58] LABS: Alanine Aminotransferase 13 Units/L (7-52); Albumin 3.5 g/dL (3.5-5.7); Albumin/Globulin Ratio 1.1 (1.1-2.2); Alkaline Phosphatase 106 Units/L (34-104); Aspartate Amino Transferase 15 Units/L (13-39); BUN/Creatinine Ratio 15 (6-26); Bilirubin,Total 0.6 mg/dL (0.3-1.0); Blood Urea Nitrogen 16 mg/dL (8-23); Calcium 8.2 mg/dL (8.6-10.3); Carbon Dioxide 21 mEq/L (23-29); Chloride 103 mEq/L (98-107); Globulin 3.3 g/dL (2.4-3.5); Glucose 191 mg/dL (70-105); Osmolality,Calculated 288 (280-300); Potassium 3.9 mEq/L (3.5-5.1); Sodium 136 mEq/L (136-145); Total Protein 6.8 g/dL (6.4-8.9); Troponin I < 0.03 ng/mL (< 0.04); eGFR For African Americans 58 (> 60); eGFR For Non-African Americans 48 (> 60)
[2022-01-22 14:58] LABS: Budding Yeast,Urine Few per hpf (None Seen)
[2022-01-22 15:16] LABS: Influenza A PCR Negative (Negative); Influenza B PCR Negative (Negative); Resp. Syncytial Virus PCR Negative (Negative)
[2022-01-22] MEDS ORDERED: *HR* OxyCODONE Immed Rel 5 MG TABLET PO PRN (15:44)
[2022-01-22] MEDS ORDERED: Naloxone 0.4 MG/ML INJ IVP PRN (15:44)
[2022-01-22] MEDS ORDERED: *HR* HYDROcodone/Acet 5/325 mg TABLET PO PRN (15:44)
[2022-01-22] MEDS ORDERED: Ondansetron 4 MG/2 ML VIAL IVP PRN (15:44)
[2022-01-22] MEDS ORDERED: Acetaminophen 325 MG TABLET PO PRN (15:44)
[2022-01-22 15:45] LABS: SARS-CoV-2 by PCR (In House) Negative (Negative)
[2022-01-22] MEDS ORDERED: levoFLOXacin 750 MG/150 ML 750 MG/150 ML BAG IVPB SCH (16:00)
[2022-01-22] MEDS: Ringers Solution, Lactated 1,000 ML IVC SCH ×2 (16:42→18:25)
[2022-01-22] MEDS ORDERED: 0.9 % Sodium Chloride 1,000 ML IVC SCH (16:45)
[2022-01-22] MEDS ORDERED: 0.9 % Sodium Chloride 1,000 ML IVC ONE ×2 (19:15→21:15)
[2022-01-22] MEDS: levoFLOXacin 750 MG/150 ML 750 MG/150 ML BAG IVPB SCH (20:29)
[2022-01-22] MEDS: Gabapentin 100 MG CAPSULE PO SCH (21:32)
[2022-01-22] MEDS: tiZANidine 4 MG TABLET PO SCH (21:32)
[2022-01-22] MEDS: rOPINIRole 1 MG TABLET PO SCH (21:32)
[2022-01-23] MEDS ORDERED: 0.9 % Sodium Chloride 1,000 ML IVC ONE (02:08)
[2022-01-23 02:33] LABS: Basophils % 0.1 %; Hematocrit 31.2 % (35.3-44.9); Immature Granulocytes % 0.4 % (0-4); Lymphocytes # 0.3 K/mcL (0.6-4.6); Mean Corpuscular HGB Conc 31.1 g/dL (31.6-35.5); Mean Corpuscular Hemoglobin 27.9 pg (28.0-33.3); Mean Corpuscular Volume 89.7 fL (83.0-100.0); Mean Platelet Volume 9.3 fL (9.4-12.4); Monocytes # 0.1 K/mcL (0.0-1.3); Monocytes % 0.8 %; Neutrophils # 10.7 K/mcL (1.6-8.9); Platelet Count 217 K/mcL (140-400); Red Blood Count 3.48 M/mcL (3.82-4.97); Red Cell Distribution Width 17.1 % (11.5-14.5); Segmented Neutrophils % 95.7 %; White Blood Count 11.2 K/mcL (4.3-11.1)
[2022-01-23 02:38] LABS: BUN/Creatinine Ratio 19 (6-26); Blood Urea Nitrogen 16 mg/dL (8-23); Calcium 7.4 mg/dL (8.6-10.3); Carbon Dioxide 19 mEq/L (23-29); Chloride 110 mEq/L (98-107); Glucose 229 mg/dL (70-105); Magnesium 1.8 mg/dL (1.6-2.6); Osmolality,Calculated 294 (280-300); Potassium 3.9 mEq/L (3.5-5.1); Sodium 138 mEq/L (136-145); eGFR For African Americans > 60 (> 60); eGFR For Non-African Americans > 60 (> 60)
[2022-01-23 02:44] LABS: Hemoglobin 9.7 g/dL (11.5-15.4)
[2022-01-23 02:51] LABS: Thyroid Stimulating Hormone 0.166 mcIU/mL (0.340-5.600)
[2022-01-23] MEDS: 0.9 % Sodium Chloride 1,000 ML IVC SCH ×3 (05:07→05:09)
[2022-01-23] MEDS: *HR* Enoxaparin 30 MG/0.3 ML SYRINGE SQ SCH (06:12)
[2022-01-23] MEDS: Cholecalciferol (D-3) 1,000 UNIT (25MCG) TABLET PO SCH (08:44)
[2022-01-23] MEDS: allopurinoL 100 MG TABLET PO SCH (08:44)
[2022-01-23] MEDS: Aspirin Enteric Coated 81 MG Tablet PO SCH (08:44)
[2022-01-23] MEDS: rOPINIRole 1 MG TABLET PO SCH ×4 (08:44→21:35)
[2022-01-23] MEDS: predniSONE 10 MG TABLET PO SCH (08:44)
[2022-01-23] MEDS: Gabapentin 100 MG CAPSULE PO SCH ×3 (08:44→21:34)
[2022-01-23] MEDS: tiZANidine 4 MG TABLET PO SCH (21:35)
[2022-01-24 02:33] LABS: Basophils % 0.1 %; Hematocrit 33.2 % (35.3-44.9); Hemoglobin 10.4 g/dL (11.5-15.4); Immature Granulocytes % 0.3 % (0-4); Lymphocytes # 1.1 K/mcL (0.6-4.6); Lymphocytes % 9.3 %; Mean Corpuscular HGB Conc 31.3 g/dL (31.6-35.5); Mean Corpuscular Volume 89.2 fL (83.0-100.0); Mean Platelet Volume 9.7 fL (9.4-12.4); Monocytes # 0.5 K/mcL (0.0-1.3); Monocytes % 4.6 %; Neutrophils # 10.1 K/mcL (1.6-8.9); Platelet Count 235 K/mcL (140-400); Red Blood Count 3.72 M/mcL (3.82-4.97); Red Cell Distribution Width 16.8 % (11.5-14.5); Segmented Neutrophils % 85.7 %; White Blood Count 11.7 K/mcL (4.3-11.1)
[2022-01-24 02:35] LABS: Estimated Average Glucose 137 mg/dl; Hemoglobin A1C 6.4 %
[2022-01-24 02:51] LABS: BUN/Creatinine Ratio 22 (6-26); Blood Urea Nitrogen 16 mg/dL (8-23); Calcium 7.9 mg/dL (8.6-10.3); Carbon Dioxide 23 mEq/L (23-29); Chloride 108 mEq/L (98-107); Glucose 147 mg/dL (70-105); Magnesium 1.8 mg/dL (1.6-2.6); Osmolality,Calculated 294 (280-300); Potassium 3.2 mEq/L (3.5-5.1); Sodium 140 mEq/L (136-145); eGFR For African Americans > 60 (> 60); eGFR For Non-African Americans > 60 (> 60)
[2022-01-24] MEDS: *HR* Enoxaparin 30 MG/0.3 ML SYRINGE SQ SCH (07:56)
[2022-01-24] MEDS: Cholecalciferol (D-3) 1,000 UNIT (25MCG) TABLET PO SCH (07:56)
[2022-01-24] MEDS: Aspirin Enteric Coated 81 MG Tablet PO SCH (07:57)
[2022-01-24] MEDS: rOPINIRole 1 MG TABLET PO SCH ×4 (07:57→21:20)
[2022-01-24] MEDS: predniSONE 10 MG TABLET PO SCH (07:59)
[2022-01-24] MEDS: Gabapentin 100 MG CAPSULE PO SCH ×3 (07:59→21:19)
[2022-01-24] MEDS: allopurinoL 100 MG TABLET PO SCH (07:59)
[2022-01-24] MEDS ORDERED: NON-FORMULARY MEDICATION 1 EACH EACH (Alendronate Sodium [Fosamax] 70 MG Tablet) PO SCH (13:03)
[2022-01-24] MEDS: tiZANidine 4 MG TABLET PO SCH (21:19)
[2022-01-24] MEDS: levoFLOXacin 750 MG/150 ML 750 MG/150 ML BAG IVPB SCH (21:20)
[2022-01-25 03:31] LABS: Basophils % 0.2 %; Eosinophils # 0.1 K/mcL (0.0-0.6); Eosinophils % 0.7 %; Hematocrit 33.3 % (35.3-44.9); Hemoglobin 10.5 g/dL (11.5-15.4); Immature Granulocytes % 0.5 % (0-4); Lymphocytes # 1.7 K/mcL (0.6-4.6); Lymphocytes % 17.7 %; Mean Corpuscular HGB Conc 31.5 g/dL (31.6-35.5); Mean Corpuscular Hemoglobin 28.2 pg (28.0-33.3); Mean Corpuscular Volume 89.3 fL (83.0-100.0); Mean Platelet Volume 9.4 fL (9.4-12.4); Monocytes # 0.5 K/mcL (0.0-1.3); Monocytes % 5.5 %; Neutrophils # 7.2 K/mcL (1.6-8.9); Platelet Count 253 K/mcL (140-400); Red Blood Count 3.73 M/mcL (3.82-4.97); Red Cell Distribution Width 16.8 % (11.5-14.5); Segmented Neutrophils % 75.4 %; White Blood Count 9.5 K/mcL (4.3-11.1)
[2022-01-25 03:47] LABS: BUN/Creatinine Ratio 22 (6-26); Blood Urea Nitrogen 18 mg/dL (8-23); Calcium 7.9 mg/dL (8.6-10.3); Carbon Dioxide 21 mEq/L (23-29); Chloride 105 mEq/L (98-107); Glucose 85 mg/dL (70-105); Magnesium 1.9 mg/dL (1.6-2.6); Osmolality,Calculated 281 (280-300); Potassium 3.4 mEq/L (3.5-5.1); Sodium 135 mEq/L (136-145); eGFR For African Americans > 60 (> 60); eGFR For Non-African Americans > 60 (> 60)
[2022-01-25] MEDS ORDERED: Potassium Effervescent 25 MEQ TABLET.EFF PO ONE (07:51)
[2022-01-25] MEDS: *HR* Enoxaparin 30 MG/0.3 ML SYRINGE SQ SCH (08:20)
[2022-01-25] MEDS: allopurinoL 100 MG TABLET PO SCH (08:21)
[2022-01-25] MEDS: predniSONE 10 MG TABLET PO SCH (08:21)
[2022-01-25] MEDS: Aspirin Enteric Coated 81 MG Tablet PO SCH (08:21)
[2022-01-25] MEDS: Gabapentin 100 MG CAPSULE PO SCH ×3 (08:21→21:12)
[2022-01-25] MEDS: Cholecalciferol (D-3) 1,000 UNIT (25MCG) TABLET PO SCH (08:21)
[2022-01-25] MEDS: rOPINIRole 1 MG TABLET PO SCH ×4 (08:21→21:12)
[2022-01-25] MEDS: tiZANidine 4 MG TABLET PO SCH (21:12)
[2022-01-26 05:07] LABS: Basophils % 0.3 %; Eosinophils # 0.1 K/mcL (0.0-0.6); Eosinophils % 0.9 %; Hematocrit 33.5 % (35.3-44.9); Hemoglobin 10.8 g/dL (11.5-15.4); Immature Granulocytes % 0.3 % (0-4); Lymphocytes # 1.8 K/mcL (0.6-4.6); Lymphocytes % 26.1 %; Mean Corpuscular HGB Conc 32.2 g/dL (31.6-35.5); Mean Corpuscular Hemoglobin 28.6 pg (28.0-33.3); Mean Corpuscular Volume 88.9 fL (83.0-100.0); Mean Platelet Volume 9.9 fL (9.4-12.4); Monocytes # 0.4 K/mcL (0.0-1.3); Monocytes % 5.3 %; Neutrophils # 4.7 K/mcL (1.6-8.9); Platelet Count 239 K/mcL (140-400); Red Blood Count 3.77 M/mcL (3.82-4.97); Red Cell Distribution Width 16.8 % (11.5-14.5); Segmented Neutrophils % 67.1 %
[2022-01-26] MEDS: *HR* Enoxaparin 30 MG/0.3 ML SYRINGE SQ SCH (05:52)
[2022-01-26 07:24] VITALS: TEMP 97.8
[2022-01-26 07:55] LABS: BUN/Creatinine Ratio 21 (6-26); Blood Urea Nitrogen 20 mg/dL (8-23); Calcium 8.4 mg/dL (8.6-10.3); Carbon Dioxide 22 mEq/L (23-29); Chloride 105 mEq/L (98-107); Glucose 91 mg/dL (70-105); Magnesium 2.2 mg/dL (1.6-2.6); Osmolality,Calculated 286 (280-300); Potassium 3.7 mEq/L (3.5-5.1); Sodium 137 mEq/L (136-145); eGFR For African Americans > 60 (> 60); eGFR For Non-African Americans 55 (> 60)
[2022-01-26] MEDS: rOPINIRole 1 MG TABLET PO SCH ×2 (08:25→12:23)
[2022-01-26] MEDS: allopurinoL 100 MG TABLET PO SCH (08:25)
[2022-01-26] MEDS: Gabapentin 100 MG CAPSULE PO SCH (08:25)
[2022-01-26] MEDS: Aspirin Enteric Coated 81 MG Tablet PO SCH (08:25)
[2022-01-26] MEDS: Cholecalciferol (D-3) 1,000 UNIT (25MCG) TABLET PO SCH (08:25)
[2022-01-26] MEDS ORDERED: predniSONE 5 MG TABLET PO SCH (09:00)
[2022-01-26 11:26] VITALS: BP 128/69; PULSE 87; O2SAT 93
== END 2022-01-26 13:20 | disposition home health service (06) | DRG 871 ==
LOC: 3ANU 12:15 → EMEROOARM 12:15 → SUATTDRO 16:32 → OBSVTOIN 16:32 → 3ANU 17:00
PROVIDERS: ADMIT Pharmacist; ATTEND Pharmacist

== ENCOUNTER 2022-01-31 10:50 | Inpatient (IN) ==
[2022-01-31] MEDS ORDERED: Piperacillin/Tazobactam 3.375 GM in 0.9 % Sodium Chloride Mini Bag 100 ML IVPB ONE (11:08)
[2022-01-31] MEDS ORDERED: Acetaminophen IV 1,000 MG/100 ML BAG IVPB ONE (11:11)
[2022-01-31 11:41] LABS: VBG HCO3 20 mEq/L (21-27); VBG PCO2 27 mmHg (41-51); VBG PH 7.47 pH Units (7.32-7.42); VBG PO2 90 mmHg (25-50)
[2022-01-31 11:53] LABS: INR 1.5; Prothrombin Time 16.2 Seconds (9.4-12.1)
[2022-01-31] MEDS ORDERED: Iopamidol - 370 500 ML MLS IVP ONE (12:00)
[2022-01-31 12:03] LABS: Alanine Aminotransferase 8 Units/L (7-52); Albumin/Globulin Ratio 0.9 (1.1-2.2); Alkaline Phosphatase 99 Units/L (34-104); Aspartate Amino Transferase 14 Units/L (13-39); BUN/Creatinine Ratio 15 (6-26); Bilirubin,Total 0.8 mg/dL (0.3-1.0); Blood Urea Nitrogen 18 mg/dL (8-23); Calcium 8.1 mg/dL (8.6-10.3); Carbon Dioxide 19 mEq/L (23-29); Chloride 107 mEq/L (98-107); Creatine Kinase 38 Units/L (30-223); Globulin 3.3 g/dL (2.4-3.5); Glucose 128 mg/dL (70-105); Lipase 4 Units/L (11-82); Osmolality,Calculated 288 (280-300); Sodium 137 mEq/L (136-145); Total Protein 6.3 g/dL (6.4-8.9); Troponin I 0.04 ng/mL (< 0.04); eGFR For African Americans 50 (> 60); eGFR For Non-African Americans 41 (> 60)
[2022-01-31 12:20] LABS: Bacteria,Urine Few per hpf (None-Few); Bilirubin,Urine Negative (Negative); Blood,Urine Trace (Negative); Budding Yeast,Urine Few per hpf (None Seen); Clarity,Urine Clear (Clear); Color,Urine Light-Yellow (Yellow); Glucose,Urine (UA) Normal (Normal); Ketones,Urine 10 mg/dL (Negative); Leukocyte Esterase,Urine Small (Negative); Mucus,Urine Few per lpf (None-Few); Nitrite,Urine Negative (Negative); PH,Urine 7.5 pH Units (5.0-8.0); Protein,Urine 30 mg/dL (Neg-Trace); Specific Gravity,Urine 1.014 (1.010-1.025); Squamous Epithelial Cell,Urine Few per hpf (None-Few); Urobilinogen,Urine Normal (Normal); WBC,Urine 15-30 per hpf (0-3)
[2022-01-31 12:23] LABS: Acetaminophen < 10 mcg/mL (10-20); Salicylate < 2.5 mg/dL (15.0-30.0)
[2022-01-31 12:25] LABS: Adenovirus Not Detected (Not Detect); Bordetella Pertussis Not Detected (Not Detect); Chlamydophila pneumoniae Not Detected (Not Detect); Coronavirus 229E Not Detected (Not Detect); Coronavirus HKU1 Not Detected (Not Detect); Coronavirus NL63 Not Detected (Not Detect); Coronavirus OC43 Not Detected (Not Detect); Human Metapneumovirus Not Detected (Not Detect); Human Rhinovirus/Enterovirus Not Detected (Not Detect); Influenza A Subtype 2009 H1 Not Detected (Not Detect); Influenza B Not Detected (Not Detect); Mycoplasma pneumoniae Not Detected (Not Detect); Parainfluenza Virus 1 Not Detected (Not Detect); Parainfluenza Virus 2 Not Detected (Not Detect); Parainfluenza Virus 3 DETECTED (Not Detect); Parainfluenza Virus 4 Not Detected (Not Detect); Respiratory Syncytial Virus Not Detected (Not Detect); SARS-CoV-2 Not Detected (Not Detect)
[2022-01-31 12:49] LABS: Basophils % 0.2 %; Hematocrit 32.1 % (35.3-44.9); Hemoglobin 10.2 g/dL (11.5-15.4); Immature Granulocytes % 0.6 % (0-4); Lymphocytes # 0.5 K/mcL (0.6-4.6); Lymphocytes % 4.6 %; Mean Corpuscular HGB Conc 31.8 g/dL (31.6-35.5); Mean Corpuscular Hemoglobin 28.6 pg (28.0-33.3); Mean Corpuscular Volume 89.9 fL (83.0-100.0); Mean Platelet Volume 9.3 fL (9.4-12.4); Monocytes # 0.4 K/mcL (0.0-1.3); Monocytes % 3.6 %; Neutrophils # 10.7 K/mcL (1.6-8.9); Platelet Count 248 K/mcL (140-400); Red Blood Count 3.57 M/mcL (3.82-4.97); Red Cell Distribution Width 16.6 % (11.5-14.5)
[2022-01-31 12:50] LABS: White Blood Count 11.8 K/mcL (4.3-11.1)
[2022-01-31] MEDS ORDERED: Ondansetron 4 MG/2 ML VIAL IVP PRN (15:39)
[2022-01-31] MEDS ORDERED: Melatonin 3 MG TABLET PO PRN (15:39)
[2022-01-31] MEDS ORDERED: Naloxone 0.4 MG/ML INJ IVP PRN (15:39)
[2022-01-31] MEDS ORDERED: Cefepime HCl 2,000 MG in 0.9 % Sodium Chloride 10 ML IVP SCH ×2 (16:00)
[2022-01-31] MEDS: GuaiFENesin Liq 200 MG/10 ML UDC PO PRN (20:48)
[2022-01-31] MEDS: Acetaminophen 325 MG TABLET PO PRN (20:51)
[2022-02-01 03:28] LABS: Basophils % 0.2 %; Eosinophils # 0.1 K/mcL (0.0-0.6); Eosinophils % 1.2 %; Hematocrit 29.7 % (35.3-44.9); Hemoglobin 9.3 g/dL (11.5-15.4); Immature Granulocytes % 0.5 % (0-4); Lymphocytes # 0.7 K/mcL (0.6-4.6); Lymphocytes % 6.2 %; Mean Corpuscular HGB Conc 31.3 g/dL (31.6-35.5); Mean Corpuscular Hemoglobin 28.5 pg (28.0-33.3); Mean Corpuscular Volume 91.1 fL (83.0-100.0); Mean Platelet Volume 9.6 fL (9.4-12.4); Monocytes # 0.6 K/mcL (0.0-1.3); Monocytes % 4.7 %; Neutrophils # 10.5 K/mcL (1.6-8.9); Platelet Count 250 K/mcL (140-400); Red Blood Count 3.26 M/mcL (3.82-4.97); Red Cell Distribution Width 16.7 % (11.5-14.5); Segmented Neutrophils % 87.2 %
[2022-02-01 03:38] LABS: BUN/Creatinine Ratio 16 (6-26); Blood Urea Nitrogen 16 mg/dL (8-23); Calcium 7.8 mg/dL (8.6-10.3); Carbon Dioxide 19 mEq/L (23-29); Chloride 112 mEq/L (98-107); Glucose 78 mg/dL (70-105); Osmolality,Calculated 288 (280-300); Potassium 3.3 mEq/L (3.5-5.1); Sodium 139 mEq/L (136-145); eGFR For African Americans > 60 (> 60); eGFR For Non-African Americans 52 (> 60)
[2022-02-01] MEDS: *HR* Enoxaparin 40 MG/0.4 ML SYRINGE SQ SCH (05:09)
[2022-02-01] MEDS: Cefepime HCl 2,000 MG in 0.9 % Sodium Chloride 10 ML IVP SCH ×2 (08:56→20:59)
[2022-02-01] MEDS ORDERED: Potassium Chloride Elixir 20 MEQ/15 ML UDC PO ONE (09:42)
[2022-02-01] MEDS: allopurinoL 100 MG TABLET PO SCH (12:09)
[2022-02-01] MEDS: Acetaminophen 325 MG TABLET PO PRN (15:44)
[2022-02-01] MEDS: rOPINIRole 1 MG TABLET PO SCH (20:59)
[2022-02-02] MEDS: *HR* Enoxaparin 40 MG/0.4 ML SYRINGE SQ SCH (05:00)
[2022-02-02 08:06] LABS: Basophils % 0.2 %; Eosinophils # 0.2 K/mcL (0.0-0.6); Eosinophils % 1.6 %; Hematocrit 32.5 % (35.3-44.9); Hemoglobin 10.1 g/dL (11.5-15.4); Immature Granulocytes % 0.3 % (0-4); Lymphocytes # 0.9 K/mcL (0.6-4.6); Lymphocytes % 10.2 %; Mean Corpuscular HGB Conc 31.1 g/dL (31.6-35.5); Mean Corpuscular Hemoglobin 27.8 pg (28.0-33.3); Mean Corpuscular Volume 89.5 fL (83.0-100.0); Monocytes # 0.7 K/mcL (0.0-1.3); Monocytes % 7.9 %; Neutrophils # 7.3 K/mcL (1.6-8.9); Platelet Count 305 K/mcL (140-400); Red Blood Count 3.63 M/mcL (3.82-4.97); Red Cell Distribution Width 16.4 % (11.5-14.5); Segmented Neutrophils % 79.8 %; White Blood Count 9.2 K/mcL (4.3-11.1)
[2022-02-02 08:15] LABS: BUN/Creatinine Ratio 15 (6-26); Blood Urea Nitrogen 14 mg/dL (8-23); Calcium 8.2 mg/dL (8.6-10.3); Carbon Dioxide 21 mEq/L (23-29); Chloride 109 mEq/L (98-107); Glucose 74 mg/dL (70-105); Osmolality,Calculated 287 (280-300); Potassium 3.3 mEq/L (3.5-5.1); Sodium 139 mEq/L (136-145); eGFR For African Americans > 60 (> 60); eGFR For Non-African Americans 59 (> 60)
[2022-02-02] MEDS: Potassium Chloride Elixir 20 MEQ/15 ML UDC PO SCH (09:43)
[2022-02-02] MEDS: allopurinoL 100 MG TABLET PO SCH (09:43)
[2022-02-02] MEDS: Cefepime HCl 2,000 MG in 0.9 % Sodium Chloride 10 ML IVP SCH ×2 (09:43→20:11)
[2022-02-02] MEDS: GuaiFENesin Liq 200 MG/10 ML UDC PO PRN (09:47)
[2022-02-02] MEDS: Gabapentin 100 MG CAPSULE PO SCH ×2 (15:27→20:12)
[2022-02-02] MEDS: amLODIPine 5 MG TABLET PO SCH (20:12)
[2022-02-02] MEDS: rOPINIRole 1 MG TABLET PO SCH (20:12)
[2022-02-03 02:35] LABS: Basophils % 0.3 %; Eosinophils # 0.2 K/mcL (0.0-0.6); Eosinophils % 2.9 %; Hematocrit 32.6 % (35.3-44.9); Hemoglobin 10.3 g/dL (11.5-15.4); Immature Granulocytes % 0.4 % (0-4); Lymphocytes % 13.2 %; Mean Corpuscular HGB Conc 31.6 g/dL (31.6-35.5); Mean Corpuscular Hemoglobin 28.1 pg (28.0-33.3); Mean Corpuscular Volume 88.8 fL (83.0-100.0); Mean Platelet Volume 9.2 fL (9.4-12.4); Monocytes # 0.7 K/mcL (0.0-1.3); Monocytes % 9.9 %; Neutrophils # 5.3 K/mcL (1.6-8.9); Platelet Count 339 K/mcL (140-400); Red Blood Count 3.67 M/mcL (3.82-4.97); Red Cell Distribution Width 16.2 % (11.5-14.5); Segmented Neutrophils % 73.3 %; White Blood Count 7.2 K/mcL (4.3-11.1)
[2022-02-03 02:57] LABS: BUN/Creatinine Ratio 17 (6-26); Blood Urea Nitrogen 15 mg/dL (8-23); Calcium 8.1 mg/dL (8.6-10.3); Carbon Dioxide 21 mEq/L (23-29); Chloride 109 mEq/L (98-107); Glucose 102 mg/dL (70-105); Osmolality,Calculated 283 (280-300); Potassium 3.6 mEq/L (3.5-5.1); Sodium 136 mEq/L (136-145); eGFR For African Americans > 60 (> 60); eGFR For Non-African Americans 59 (> 60)
[2022-02-03] MEDS: *HR* Enoxaparin 40 MG/0.4 ML SYRINGE SQ SCH (05:18)
[2022-02-03] MEDS: Gabapentin 100 MG CAPSULE PO SCH (08:50)
[2022-02-03] MEDS: amLODIPine 5 MG TABLET PO SCH (08:50)
[2022-02-03] MEDS: Potassium Chloride Elixir 20 MEQ/15 ML UDC PO SCH (08:50)
[2022-02-03] MEDS ORDERED: Cefdinir 300 MG CAPSULE PO SCH (09:00)
[2022-02-03] MEDS ORDERED: NON-FORMULARY MEDICATION 1 EACH EACH (Potassium Chloride [K-Tab Er] 20 MEQ Tablet.Er) PO SCH (09:00)
[2022-02-03] MEDS ORDERED: Aspirin Enteric Coated 81 MG Tablet PO SCH (09:00)
[2022-02-03] MEDS ORDERED: allopurinoL 100 MG TABLET PO SCH (09:00)
[2022-02-03 11:21] VITALS: BP 116/50; PULSE 79; TEMP 98.4; O2SAT 92
== END 2022-02-03 15:59 | disposition home health service (06) | DRG 871 ==
LOC: EMEROOARM 10:50 → 2NENU 10:50 → SUATTDRO 15:46 → 2NENU 15:59
PROVIDERS: ADMIT Hospitalist; ATTEND Internal Medicine

== ENCOUNTER 2022-03-10 14:37 | Inpatient (IN) ==
[2022-03-10 15:58] LABS: Basophils % 0.2 %; Eosinophils # 0.1 K/mcL (0.0-0.6); Eosinophils % 2.4 %; Hematocrit 37.4 % (35.3-44.9); Hemoglobin 11.6 g/dL (11.5-15.4); Immature Granulocytes % 0.2 % (0-4); Lymphocytes # 1.8 K/mcL (0.6-4.6); Lymphocytes % 42.9 %; Mean Corpuscular Hemoglobin 28.1 pg (28.0-33.3); Mean Corpuscular Volume 90.6 fL (83.0-100.0); Mean Platelet Volume 9.7 fL (9.4-12.4); Monocytes # 0.4 K/mcL (0.0-1.3); Neutrophils # 1.9 K/mcL (1.6-8.9); Platelet Count 343 K/mcL (140-400); Red Blood Count 4.13 M/mcL (3.82-4.97); Red Cell Distribution Width 15.2 % (11.5-14.5); Segmented Neutrophils % 45.3 %; White Blood Count 4.1 K/mcL (4.3-11.1)
[2022-03-10 17:00] LABS: Alanine Aminotransferase 7 Units/L (7-52); Albumin 2.9 g/dL (3.5-5.7); Albumin/Globulin Ratio 0.8 (1.1-2.2); Alkaline Phosphatase 83 Units/L (34-104); Aspartate Amino Transferase 23 Units/L (13-39); BUN/Creatinine Ratio 14 (6-26); Bilirubin,Total 0.4 mg/dL (0.3-1.0); Blood Urea Nitrogen 16 mg/dL (8-23); C-Reactive Protein 32 mg/L (Less than 10); Calcium 8.2 mg/dL (8.6-10.3); Carbon Dioxide 27 mEq/L (23-29); Chloride 106 mEq/L (98-107); Globulin 3.5 g/dL (2.4-3.5); Glucose 85 mg/dL (70-105); Magnesium 1.9 mg/dL (1.6-2.6); Osmolality,Calculated 292 (280-300); Phosphorous 3.6 mg/dL (2.7-4.5); Potassium 3.8 mEq/L (3.5-5.1); Sodium 141 mEq/L (136-145); Thyroid Stimulating Hormone 0.193 mcIU/mL (0.340-5.600); Total Protein 6.4 g/dL (6.4-8.9); Troponin I < 0.03 ng/mL (< 0.04); eGFR For African Americans 55 (> 60); eGFR For Non-African Americans 45 (> 60)
[2022-03-10] MEDS ORDERED: Iopamidol - 370 500 ML MLS IVP ONE (17:31)
[2022-03-10 17:55] LABS: Bacteria,Urine Few per hpf (None-Few); Bilirubin,Urine Negative (Negative); Blood,Urine Small (Negative); Clarity,Urine Ex.Turbid (Clear); Color,Urine Yellow (Yellow); Glucose,Urine (UA) Normal (Normal); Ketones,Urine Negative (Negative); Leukocyte Esterase,Urine Large (Negative); Mucus,Urine Few per lpf (None-Few); Nitrite,Urine Negative (Negative); Protein,Urine 50 mg/dL (Neg-Trace); Renal Epithelial Cells,Urine Few per hpf (None-Few); Specific Gravity,Urine 1.016 (1.010-1.025); Squamous Epithelial Cell,Urine Moderate per hpf (None-Few); Urobilinogen,Urine Normal (Normal); WBC,Urine TNTC per hpf (0-3)
[2022-03-10 17:57] LABS: VBG Ionized Calcium 1.11 mmol/L (1.15-1.35)
[2022-03-10] MEDS ORDERED: *HR* Heparin 5,000 UNIT/ML VIAL IVP ONE (19:13)
[2022-03-10] MEDS ORDERED: *HR* Heparin 5,000 UNIT/ML VIAL IVP PRN ×2 (19:13)
[2022-03-10] MEDS: Heparin 25,000UNIT/250ML 1/2NS 25,000 UNIT/250 ML IV.SOLN IVC SCH (19:47)
[2022-03-10 19:49] LABS: INR 1.1; Prothrombin Time 12.3 Seconds (9.4-12.1)
[2022-03-10 19:52] LABS: Heparin anti-factor XA UFH < 0.04 IU/mL (0.30-0.70)
[2022-03-10] MEDS ORDERED: Naloxone 0.4 MG/ML INJ IVP PRN (20:32)
[2022-03-10] MEDS ORDERED: Acetaminophen 325 MG TABLET PO PRN (20:32)
[2022-03-11 03:04] LABS: Hematocrit 34.6 % (35.3-44.9); Hemoglobin 10.6 g/dL (11.5-15.4); Mean Corpuscular HGB Conc 30.6 g/dL (31.6-35.5); Mean Corpuscular Hemoglobin 27.5 pg (28.0-33.3); Mean Corpuscular Volume 89.6 fL (83.0-100.0); Platelet Count 363 K/mcL (140-400); Red Blood Count 3.86 M/mcL (3.82-4.97); Red Cell Distribution Width 15.2 % (11.5-14.5); White Blood Count 4.3 K/mcL (4.3-11.1)
[2022-03-11 03:17] LABS: Calcium 8.2 mg/dL (8.6-10.3); Potassium 3.3 mEq/L (3.5-5.1)
[2022-03-11] MEDS: cefTRIAXone 1,000 MG in Water for inj. (sterile) 10 ML IVP SCH (09:51)
[2022-03-11] MEDS ORDERED: Potassium Chloride Elixir 20 MEQ/15 ML UDC PO ONE (10:32)
[2022-03-11] MEDS ORDERED: Acetaminophen 325 MG TABLET PO PRN (10:44)
[2022-03-11] MEDS: rOPINIRole 1 MG TABLET PO SCH ×3 (12:10→20:08)
[2022-03-11] MEDS ORDERED: Ondansetron 4 MG/2 ML VIAL IVP PRN (12:56)
[2022-03-11] MEDS: Gabapentin 100 MG CAPSULE PO SCH ×2 (15:08→20:09)
[2022-03-11] MEDS: Heparin 25,000UNIT/250ML 1/2NS 25,000 UNIT/250 ML IV.SOLN IVC SCH (20:05)
[2022-03-11] MEDS: Vancomycin 500 MG in 0.9 % Sodium Chloride Mini Bag 100 ML IVPB SCH (20:07)
[2022-03-11] MEDS: Apixaban 5 MG TABLET PO SCH (20:08)
[2022-03-11] MEDS: amLODIPine 5 MG TABLET PO SCH (20:08)
[2022-03-11] MEDS ORDERED: Famotidine 20 MG TABLET PO SCH (21:00)
[2022-03-12 04:00] LABS: BUN/Creatinine Ratio 11 (6-26); Blood Urea Nitrogen 9 mg/dL (8-23); Calcium 7.9 mg/dL (8.6-10.3); Carbon Dioxide 24 mEq/L (23-29); Chloride 105 mEq/L (98-107); Glucose 85 mg/dL (70-105); Magnesium 1.8 mg/dL (1.6-2.6); Osmolality,Calculated 280 (280-300); Potassium 3.2 mEq/L (3.5-5.1); Sodium 136 mEq/L (136-145); eGFR For African Americans > 60 (> 60); eGFR For Non-African Americans > 60 (> 60)
[2022-03-12 04:08] LABS: Basophils % 0.4 %; Eosinophils # 0.1 K/mcL (0.0-0.6); Eosinophils % 2.9 %; Hematocrit 33.2 % (35.3-44.9); Hemoglobin 9.9 g/dL (11.5-15.4); Immature Granulocytes % 0.4 % (0-4); Lymphocytes # 1.1 K/mcL (0.6-4.6); Lymphocytes % 41.6 %; Mean Corpuscular HGB Conc 29.8 g/dL (31.6-35.5); Mean Corpuscular Hemoglobin 27.7 pg (28.0-33.3); Mean Platelet Volume 9.6 fL (9.4-12.4); Monocytes # 0.2 K/mcL (0.0-1.3); Neutrophils # 1.3 K/mcL (1.6-8.9); Platelet Count 323 K/mcL (140-400); Red Blood Count 3.57 M/mcL (3.82-4.97); Red Cell Distribution Width 14.8 % (11.5-14.5); Segmented Neutrophils % 46.7 %; White Blood Count 2.7 K/mcL (4.3-11.1)
[2022-03-12] MEDS: cefTRIAXone 1,000 MG in Water for inj. (sterile) 10 ML IVP SCH (10:13)
[2022-03-12] MEDS: Apixaban 5 MG TABLET PO SCH ×2 (10:14→20:35)
[2022-03-12] MEDS: Famotidine 20 MG TABLET PO SCH (10:14)
[2022-03-12] MEDS: Gabapentin 100 MG CAPSULE PO SCH ×3 (10:14→20:35)
[2022-03-12] MEDS: allopurinoL 100 MG TABLET PO SCH (10:14)
[2022-03-12] MEDS: Aspirin Enteric Coated 81 MG Tablet PO SCH (10:14)
[2022-03-12] MEDS: amLODIPine 5 MG TABLET PO SCH ×2 (10:14→20:35)
[2022-03-12] MEDS: rOPINIRole 1 MG TABLET PO SCH ×4 (10:16→20:35)
[2022-03-12] MEDS ORDERED: Potassium Chloride Elixir 20 MEQ/15 ML UDC PO ONE (12:34)
[2022-03-12] MEDS: Vancomycin 500 MG in 0.9 % Sodium Chloride Mini Bag 100 ML IVPB SCH (20:34)
[2022-03-13 01:39] LABS: Basophils % 0.9 %; Eosinophils # 0.2 K/mcL (0.0-0.6); Eosinophils % 5.2 %; Hematocrit 35.7 % (35.3-44.9); Hemoglobin 11.1 g/dL (11.5-15.4); Immature Granulocytes % 0.3 % (0-4); Lymphocytes # 1.5 K/mcL (0.6-4.6); Lymphocytes % 42.4 %; Mean Corpuscular HGB Conc 31.1 g/dL (31.6-35.5); Mean Corpuscular Hemoglobin 27.4 pg (28.0-33.3); Mean Corpuscular Volume 88.1 fL (83.0-100.0); Mean Platelet Volume 9.5 fL (9.4-12.4); Monocytes # 0.4 K/mcL (0.0-1.3); Monocytes % 11.3 %; Neutrophils # 1.4 K/mcL (1.6-8.9); Platelet Count 375 K/mcL (140-400); Red Blood Count 4.05 M/mcL (3.82-4.97); Red Cell Distribution Width 14.5 % (11.5-14.5); Segmented Neutrophils % 39.9 %; White Blood Count 3.4 K/mcL (4.3-11.1)
[2022-03-13 01:58] LABS: BUN/Creatinine Ratio 9 (6-26); Blood Urea Nitrogen 7 mg/dL (8-23); Calcium 7.9 mg/dL (8.6-10.3); Carbon Dioxide 25 mEq/L (23-29); Chloride 106 mEq/L (98-107); Glucose 95 mg/dL (70-105); Osmolality,Calculated 282 (280-300); Potassium 3.5 mEq/L (3.5-5.1); Sodium 137 mEq/L (136-145); eGFR For African Americans > 60 (> 60); eGFR For Non-African Americans > 60 (> 60)
[2022-03-13] MEDS: Famotidine 20 MG TABLET PO SCH (08:52)
[2022-03-13] MEDS: rOPINIRole 1 MG TABLET PO SCH ×4 (08:53→20:22)
[2022-03-13] MEDS: Gabapentin 100 MG CAPSULE PO SCH ×3 (08:53→22:04)
[2022-03-13] MEDS: Aspirin Enteric Coated 81 MG Tablet PO SCH (08:53)
[2022-03-13] MEDS: Apixaban 5 MG TABLET PO SCH ×2 (08:53→20:21)
[2022-03-13] MEDS: allopurinoL 100 MG TABLET PO SCH (08:54)
[2022-03-13] MEDS: amLODIPine 5 MG TABLET PO SCH ×2 (08:54→20:22)
[2022-03-13] MEDS: cefTRIAXone 1,000 MG in Water for inj. (sterile) 10 ML IVP SCH (08:55)
[2022-03-13] MEDS: Doxycycline 100 MG in 0.9 % Sodium Chloride Mini Bag 100 ML IVPB SCH ×2 (10:27→17:15)
[2022-03-13] MEDS: Melatonin 3 MG TABLET PO PRN (20:22)
[2022-03-14] MEDS: Doxycycline 100 MG in 0.9 % Sodium Chloride Mini Bag 100 ML IVPB SCH ×2 (05:10→16:07)
[2022-03-14 07:23] LABS: Basophils % 0.5 %; Eosinophils # 0.3 K/mcL (0.0-0.6); Eosinophils % 8.2 %; Hematocrit 37.6 % (35.3-44.9); Hemoglobin 11.5 g/dL (11.5-15.4); Immature Granulocytes % 0.2 % (0-4); Lymphocytes # 1.4 K/mcL (0.6-4.6); Lymphocytes % 34.9 %; Mean Corpuscular HGB Conc 30.6 g/dL (31.6-35.5); Mean Corpuscular Hemoglobin 27.2 pg (28.0-33.3); Mean Corpuscular Volume 88.9 fL (83.0-100.0); Mean Platelet Volume 9.4 fL (9.4-12.4); Monocytes # 0.3 K/mcL (0.0-1.3); Monocytes % 8.4 %; Neutrophils # 1.9 K/mcL (1.6-8.9); Platelet Count 367 K/mcL (140-400); Red Blood Count 4.23 M/mcL (3.82-4.97); Red Cell Distribution Width 14.4 % (11.5-14.5); Segmented Neutrophils % 47.8 %
[2022-03-14 07:41] LABS: BUN/Creatinine Ratio 8 (6-26); Blood Urea Nitrogen 7 mg/dL (8-23); Calcium 8.2 mg/dL (8.6-10.3); Carbon Dioxide 29 mEq/L (23-29); Chloride 105 mEq/L (98-107); Glucose 88 mg/dL (70-105); Osmolality,Calculated 281 (280-300); Potassium 3.3 mEq/L (3.5-5.1); Sodium 137 mEq/L (136-145); eGFR For African Americans > 60 (> 60); eGFR For Non-African Americans > 60 (> 60)
[2022-03-14] MEDS: Apixaban 5 MG TABLET PO SCH ×2 (08:04→20:45)
[2022-03-14] MEDS: allopurinoL 100 MG TABLET PO SCH (08:04)
[2022-03-14] MEDS: Famotidine 20 MG TABLET PO SCH (08:04)
[2022-03-14] MEDS: rOPINIRole 1 MG TABLET PO SCH ×4 (08:04→20:45)
[2022-03-14] MEDS: Aspirin Enteric Coated 81 MG Tablet PO SCH (08:05)
[2022-03-14] MEDS: Gabapentin 100 MG CAPSULE PO SCH ×3 (08:05→20:45)
[2022-03-14] MEDS: amLODIPine 5 MG TABLET PO SCH ×2 (08:05→20:45)
[2022-03-14] MEDS: cefTRIAXone 1,000 MG in Water for inj. (sterile) 10 ML IVP SCH (08:06)
[2022-03-14] MEDS ORDERED: NON-FORMULARY MEDICATION 1 EACH EACH (Alendronate Sodium [Fosamax] 70 MG Tablet) PO SCH (10:43)
[2022-03-14] MEDS: Doxycycline 100 MG CAPSULE PO SCH (20:45)
[2022-03-14] MEDS: cephALEXin 500 MG CAPSULE PO SCH (20:46)
[2022-03-14] MEDS: Melatonin 3 MG TABLET PO PRN (20:52)
[2022-03-15 05:54] LABS: Basophils # 0.1 K/mcL (0.0-0.2); Basophils % 0.8 %; Eosinophils # 0.4 K/mcL (0.0-0.6); Eosinophils % 6.4 %; Hematocrit 42.2 % (35.3-44.9); Hemoglobin 12.6 g/dL (11.5-15.4); Immature Granulocytes % 0.3 % (0-4); Lymphocytes % 29.9 %; Mean Corpuscular HGB Conc 29.9 g/dL (31.6-35.5); Mean Corpuscular Hemoglobin 27.6 pg (28.0-33.3); Mean Corpuscular Volume 92.3 fL (83.0-100.0); Mean Platelet Volume 10.1 fL (9.4-12.4); Monocytes # 0.5 K/mcL (0.0-1.3); Monocytes % 8.2 %; Neutrophils # 3.6 K/mcL (1.6-8.9); Platelet Count 326 K/mcL (140-400); Red Blood Count 4.57 M/mcL (3.82-4.97); Red Cell Distribution Width 14.6 % (11.5-14.5); Segmented Neutrophils % 54.4 %
[2022-03-15 05:59] LABS: White Blood Count 6.6 K/mcL (4.3-11.1)
[2022-03-15 06:22] LABS: BUN/Creatinine Ratio 10 (6-26); Blood Urea Nitrogen 9 mg/dL (8-23); Calcium 8.9 mg/dL (8.6-10.3); Carbon Dioxide 21 mEq/L (23-29); Chloride 107 mEq/L (98-107); Glucose 103 mg/dL (70-105); Magnesium 1.9 mg/dL (1.6-2.6); Osmolality,Calculated 283 (280-300); Phosphorous 2.9 mg/dL (2.7-4.5); Sodium 137 mEq/L (136-145); eGFR For African Americans > 60 (> 60); eGFR For Non-African Americans 56 (> 60)
[2022-03-15] MEDS: rOPINIRole 1 MG TABLET PO SCH ×3 (09:11→17:18)
[2022-03-15] MEDS: amLODIPine 5 MG TABLET PO SCH (09:11)
[2022-03-15] MEDS: Doxycycline 100 MG CAPSULE PO SCH (09:11)
[2022-03-15] MEDS: Gabapentin 100 MG CAPSULE PO SCH ×2 (09:11→14:43)
[2022-03-15] MEDS: allopurinoL 100 MG TABLET PO SCH (09:11)
[2022-03-15] MEDS: Apixaban 5 MG TABLET PO SCH (09:11)
[2022-03-15] MEDS: Famotidine 20 MG TABLET PO SCH (09:12)
[2022-03-15] MEDS: cephALEXin 500 MG CAPSULE PO SCH ×2 (09:12→14:43)
[2022-03-15] MEDS: Aspirin Enteric Coated 81 MG Tablet PO SCH (09:12)
[2022-03-15] MEDS ORDERED: Moderna Covid-19 Vaccine 100MCG/0.5mL IM ONE (15:50)
[2022-03-15 18:17] LABS: Influenza A PCR Negative (Negative); Influenza B PCR Negative (Negative); Resp. Syncytial Virus PCR Negative (Negative)
[2022-03-15 18:19] LABS: SARS-CoV-2 by PCR (In House) Positive (Negative)
[2022-03-16 03:32] LABS: Basophils % 0.3 %; Eosinophils # 0.4 K/mcL (0.0-0.6); Hematocrit 35.9 % (35.3-44.9); Immature Granulocytes % 0.5 % (0-4); Lymphocytes # 1.6 K/mcL (0.6-4.6); Lymphocytes % 23.9 %; Mean Corpuscular HGB Conc 30.6 g/dL (31.6-35.5); Mean Corpuscular Hemoglobin 27.2 pg (28.0-33.3); Mean Corpuscular Volume 88.9 fL (83.0-100.0); Mean Platelet Volume 9.6 fL (9.4-12.4); Monocytes # 0.6 K/mcL (0.0-1.3); Monocytes % 8.9 %; Platelet Count 387 K/mcL (140-400); Red Blood Count 4.04 M/mcL (3.82-4.97); Red Cell Distribution Width 14.4 % (11.5-14.5); Segmented Neutrophils % 60.4 %; White Blood Count 6.7 K/mcL (4.3-11.1)
[2022-03-16 03:38] LABS: BUN/Creatinine Ratio 12 (6-26); Blood Urea Nitrogen 11 mg/dL (8-23); Calcium 8.4 mg/dL (8.6-10.3); Carbon Dioxide 25 mEq/L (23-29); Chloride 106 mEq/L (98-107); Glucose 78 mg/dL (70-105); Osmolality,Calculated 282 (280-300); Sodium 137 mEq/L (136-145); eGFR For African Americans > 60 (> 60); eGFR For Non-African Americans 59 (> 60)
[2022-03-16] MEDS: amLODIPine 5 MG TABLET PO SCH ×3 (04:32→19:23)
[2022-03-16] MEDS: cephALEXin 500 MG CAPSULE PO SCH ×2 (04:32→09:38)
[2022-03-16] MEDS: Gabapentin 100 MG CAPSULE PO SCH ×4 (04:32→19:23)
[2022-03-16] MEDS: Doxycycline 100 MG CAPSULE PO SCH ×3 (04:32→19:23)
[2022-03-16] MEDS: Apixaban 5 MG TABLET PO SCH ×3 (04:32→19:24)
[2022-03-16] MEDS: rOPINIRole 1 MG TABLET PO SCH ×5 (04:33→19:24)
[2022-03-16] MEDS: Aspirin Enteric Coated 81 MG Tablet PO SCH (09:38)
[2022-03-16] MEDS: Famotidine 20 MG TABLET PO SCH (09:39)
[2022-03-16] MEDS: allopurinoL 100 MG TABLET PO SCH (09:39)
[2022-03-16] MEDS: dexAMETHasone 4 MG TABLET PO SCH (11:51)
[2022-03-16] MEDS: Cefdinir 300 MG CAPSULE PO SCH (20:33)
[2022-03-17 03:48] LABS: Basophils % 0.2 %; Hematocrit 37.2 % (35.3-44.9); Hemoglobin 11.7 g/dL (11.5-15.4); Immature Granulocytes % 0.4 % (0-4); Lymphocytes # 0.7 K/mcL (0.6-4.6); Lymphocytes % 15.3 %; Mean Corpuscular HGB Conc 31.5 g/dL (31.6-35.5); Mean Corpuscular Hemoglobin 27.5 pg (28.0-33.3); Mean Corpuscular Volume 87.5 fL (83.0-100.0); Mean Platelet Volume 9.9 fL (9.4-12.4); Monocytes # 0.1 K/mcL (0.0-1.3); Monocytes % 2.2 %; Neutrophils # 3.7 K/mcL (1.6-8.9); Platelet Count 412 K/mcL (140-400); Red Blood Count 4.25 M/mcL (3.82-4.97); Red Cell Distribution Width 14.3 % (11.5-14.5); Segmented Neutrophils % 81.9 %; White Blood Count 4.5 K/mcL (4.3-11.1)
[2022-03-17 04:09] LABS: Calcium 9.1 mg/dL (8.6-10.3); Potassium 4.1 mEq/L (3.5-5.1)
[2022-03-17] MEDS: Doxycycline 100 MG CAPSULE PO SCH ×2 (09:50→21:03)
[2022-03-17] MEDS: rOPINIRole 1 MG TABLET PO SCH ×4 (09:50→21:04)
[2022-03-17] MEDS: Aspirin Enteric Coated 81 MG Tablet PO SCH (09:50)
[2022-03-17] MEDS: Cefdinir 300 MG CAPSULE PO SCH (09:51)
[2022-03-17] MEDS: Apixaban 5 MG TABLET PO SCH ×2 (09:51→21:04)
[2022-03-17] MEDS: allopurinoL 100 MG TABLET PO SCH (09:51)
[2022-03-17] MEDS: amLODIPine 5 MG TABLET PO SCH ×2 (09:52→21:05)
[2022-03-17] MEDS: Gabapentin 100 MG CAPSULE PO SCH ×3 (09:52→21:03)
[2022-03-17] MEDS: dexAMETHasone 4 MG TABLET PO SCH (09:52)
[2022-03-17] MEDS: Famotidine 20 MG TABLET PO SCH (09:52)
[2022-03-18] MEDS ORDERED: Cefdinir 300 MG CAPSULE PO SCH (09:00)
[2022-03-18] MEDS ORDERED: Famotidine 20 MG TABLET PO SCH (09:00)
[2022-03-18] MEDS: Gabapentin 100 MG CAPSULE PO SCH ×3 (09:04→22:33)
[2022-03-18] MEDS: rOPINIRole 1 MG TABLET PO SCH ×4 (09:04→22:33)
[2022-03-18] MEDS: Apixaban 5 MG TABLET PO SCH ×2 (09:04→22:34)
[2022-03-18] MEDS: allopurinoL 100 MG TABLET PO SCH (09:04)
[2022-03-18] MEDS: Doxycycline 100 MG CAPSULE PO SCH (09:05)
[2022-03-18] MEDS: dexAMETHasone 4 MG TABLET PO SCH (09:05)
[2022-03-18] MEDS: Aspirin Enteric Coated 81 MG Tablet PO SCH (09:05)
[2022-03-18] MEDS: amLODIPine 5 MG TABLET PO SCH ×2 (09:06→22:33)
[2022-03-18] MEDS: Melatonin 3 MG TABLET PO PRN (22:33)
[2022-03-18 22:50] VITALS: BP 147/77; PULSE 61; TEMP 97.4; O2SAT 94
[2022-03-19] MEDS ORDERED: Apixaban 5 MG TABLET PO SCH (09:00)
== END 2022-03-19 01:00 | DRG 175 ==
LOC: EMEROOARM 14:37 → 3ANU 14:37 → SUATTDRO 03-11 10:31
PROVIDERS: ADMIT Internal Medicine; ATTEND Family Medicine